=== PATIENT | female | born 1965 | race Caucasian/White ===

== ENCOUNTER 2020-04-23 12:45 | Outpatient (CLI) | payer OTHER, SELFPAY ==
[2020-04-23 13:55] LABS: Hematocrit 42.5 % (37.0-47.0); Hemoglobin 13.5 g/dL (12.0-15.0); Mean Corpuscular HGB Conc 31.8 g/dl (32-36); Mean Corpuscular Hemoglobin 26.3 pg (26-34); Mean Corpuscular Volume 82.7 fl (80-100); Mean Platelet Volume 10.3 fl (7.4-10.4); Platelet Count Result 284 k/mm3 (150-375); Red Blood Count 5.14 M/mm3 (4.2-5.4); Red Cell Distribution Width 14.6 % (11.5-14.5); White Blood Count 10.4 K/mm3 (4.5-10.0)
[2020-04-23 14:04] LABS: Hemoglobin A1C 7.1 % (<5.7)
[2020-04-23 14:07] LABS: Albumin Level 4.6 g/dL (3.5-5.1); Anion Gap 11 mmol/L (8-16); Blood Urea Nitrogen 35 mg/dL (7-17); Calcium 9.5 mg/dL (8.4-10.2); Carbon Dioxide 25 mmol/L (22-30); Chloride 100 mmol/L (98-107); Estimated Glomerular Filt Rate 28; Glucose 176 mg/dL (65-105); Potassium 4.5 mmol/L (3.4-5.0); Sodium 136 mmol/L (137-145)
[2020-04-23 14:07] LABS: Creatinine Urine 30.6 mg/dL; Total Protein Urine Random 14 mg/dL
[2020-04-23 14:19] LABS: Parathyroid Intact 78.3 pg/mL (7.5-53.5)
[2020-04-23 14:21] LABS: Iron 53 ug/dL (37-170)
[2020-04-23 14:31] LABS: Percent Iron Saturation 16 % (20-50)
[2020-04-23 14:57] LABS: Total Volume 24 Hour Urine 2600 ml
[2020-04-23 15:36] LABS: Creatinine 24 Hour Urine 0.9 gm/24 (0.8-1.8)
[2020-04-28 14:40] LABS: Collection Time Urine 24 HOURS
[2020-04-28 14:43] LABS: Creatinine Clearance Urine 26.3 ml/min (75-125); Patient Weight 202 Lbs; Serum Creat 1.9; Total Volume 24 Hour Urine 2600 ml
== END 2020-04-23 12:46 | disposition home or self-care (01) ==
LOC: ANHLAB 12:47
PROVIDERS: Visit Provider Internal Medicine Nephrology
DX: I12.9 Hypertensive chronic kidney disease with stage 1 through stage 4 chronic kidney disease, or unspecified chronic kidney disease (principal); N18.3 Chronic kidney disease, stage 3 (moderate); E11.21 Type 2 diabetes mellitus with diabetic nephropathy
CPT/HCPCS: 36415; 80069; 81050; 82570; 82575; 82728; 83036; 83540; 83550; 83970; 84156; 85027

== ENCOUNTER 2025-02-05 08:41 | Outpatient (CLI) | payer OTHER, SELFPAY ==
--- NOTE | ~2025-02-05 | XR_ITS ---
3 VIEWS LUMBAR SPINE Ordering provider: Meliza Cedillo APRN History: . M25.552 - Pain in left hip . Comparison: None. 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 No visible fracture or subluxation. Degenerati ve changes of the spine with marginal osteophytes. DISK SPACES: Normal. SOFT TISSUES: Atherosclerotic changes of the aorta. IMPRESSION: No acute osseous abnormality lumbar spine. 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 Reviewed, dictated and finalized at location A.
--- NOTE | ~2025-02-05 | XR_ITS ---
XR hip LT min 2V Ordering provider: Meliza Cedillo APRN History: . M25.552 - Pain in left hip . Comparison: None. FINDINGS: BONES: No acute fracture or dislocation. HIP JOINT SPACES: Mild narrowing of the left hip joint. PUBIC SYMPHYSIS: Normal. SOFT TISSUES: Normal. IMPRESSION: No acute osseous abnormality pelvis and left hip. Mild left hip osteoarthritic changes. Reviewed, dictated and finalized at location A.
--- OUTSIDE RECORDS SUMMARY | 2025-02-05 09:08 | XMS_ITS | Clinical Summary ---
Author Organization [facility] Facility Address [address] [place] [id number] Care Team Providers Care Cardiac Catheterization Technician Name Role Phone Unavailable Primary Care Provider Unavailabl e Allergies No known active allergies Medications * This document contains information received from the source organization and may not represent a complete record from that organization. aspirin 81 MG tablet Take 1 tablet by mouth 1 (one) time each day Active rosuvastatin (CRESTOR) 40 MG tablet Take 1 tablet by mouth at bed time Active glipiZIDE (GLUCOTROL) 5 MG tablet Take 0.5 tablets by mouth 1 (one) time each day Active insulin glargine (LANTUS SOLOSTAR) 100 UNIT/ML injection Inject 80 Units under the skin at bed time Active lisinopril-hydr oCHLOROthiazide (PRINZIDE,ZESTO RETIC) 20-12.5 MG per tablet Take 1 tablet by mouth 1 (one) time each day Active guaiFENesin (MUCINEX) 600 MG 12 hr tablet Take 1 tablet by mouth 2 (two) times a day Active olopatadine (PATADAY) 0.2 % ophthalmic solution Administer into both eyes 1 (one) time each day Active omeprazole OTC (PRILOSEC OTC) 20 MG EC tablet Take 1 tablet by mouth 1 (one) time each day Active Dulaglutide (TRULICITY) 0.75 MG/0.5ML solution pen-injector Inject 1.5 mg under the skin 1 (one) time per week Active acetaminophen (TYLENOL) 325 MG tablet Take 1 tablet by mouth 1 (one) time each day Active cetirizine (ZyrTEC ALLERGY) 10 MG tablet Take 1 tablet by mouth 1 (one) time each day Active Active Problems Problem Noted Date Diagnosed Date Anemia 06/23/2019 Chronic kidney disease stage 3 06/23/2019 Essential hypertension 06/23/2019 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 08/23/2018 Family History Medical History Relation Comments Dementia Father 2 Hypertension Father 2 Diabetes Mother 2 Hypertension Mother 2 Diabetes Sibling Relation Status Comments Father 1 Father 2 Mother 1 Alive Mother 2 Sibling Social History Tobacco Use Types Packs/Day Years Used Date Smoking Tobacco: Never Smokeless Tobacco: Never Alcohol Use Standard Drinks/Week Comments Yes 0 (1 standard drink = 0.6 oz pure alcohol) Alcoholic Drinks/day: Occasional social drink AUDIT-C Answer Date Recorded Frequency of Alcohol Consumption Monthly or less 07/22/2019 Average Number of Drinks Not on file 019 Frequency of Binge Drinking Not on file 09/2018 Comments Unknown Sex and Gender Information Value Date Recorded Sex Assigned at Not on file Legal Sex Female 6:10 PM EDT Gender Identity Not on file Sexual Orientation Not on file Last Filed Vital Signs Vital Sign Reading Time Taken Comments Blood Pressure 125/69 07/22/2019 11:31 AM 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 Pulse 99 07/22/2019 11:31 AM 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 Temperature - - Respiratory Rate 18 03/13/2019 11:00 AM CDT Oxygen Saturation 99% 07/22/2019 11:31 AM 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 Inhaled Oxygen Concentration - - Weight 91.6 kg (202 lb) 07/22/2019 11:31 AM 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 Height 157.5 cm (5' 2) 07/22/2019 11:31 AM 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 Body Mass Index 36.95 07/22/2019 11:31 AM 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 Plan of Treatment Health Maintenance Due Date Last Done Comments Breast Cancer Screening 1965 Hepatitis B Vaccine (1 of 3 - 19+ 3-dose series) 1985 Pneumococcal Vaccine: 50+ Ye ars (1 of 2 - PCV) 1985 Colorectal Cancer Screening: Annual FOBT 11/07/2015 Colorectal Cancer Screening: Colonoscopy 11/07/2015 Colorectal Cancer Screening: Sigmoidoscopy 11/07/2015 Diabetes: Ophthalmology Exam 06/23/2019 Diabetes: Pedal Pulse Checked 06/23/2019 Diabetes: Sensory Foot Exam 06/23/2019 Diabetes: Visual Foot Exam 06/23/2019 Diabetes: Hemoglobin A1C 07/23/2020 04/23/2020, 1103/2019 Influenza Vaccine (Season Ended) 2025 Procedures Procedure Name Priority Date/Time Associated Diagnosis Comments HEMOGLOBIN A1C Routine 04/23/2020 Type 2 diabetes mellitus with diabetic nephropathy (HCC) from Last 3 Months or Most Recently Relevant to Health Maintenance Results * Hemoglobin A1c (04/23/2020) Hemoglobin A1C 7.1 >=5.7 PRINT /EXTERNAL (NON-INTERFACE D LABS) Blood specimen (specimen) Venous blood / Unknown 04/23/2020 Jose Correia MD LAB BLOOD ORDERABLES Final Res ult PRINT/EXTERNAL (NON-INTERFACED LABS) from Last 3 Months or Most Recently Relevant to Health Maintenance Insurance
[2025-02-05 09:33] LABS: Hematocrit 43.1 % (37.0-47.0); Hemoglobin 13.6 g/dL (12.0-15.0); Mean Corpuscular HGB Conc 31.6 g/dl (32-36); Mean Corpuscular Volume 85.7 fl (80-100); Mean Platelet Volume 10.3 fl (7.4-10.4); Platelet Count Result 220 k/mm3 (150-375); Red Blood Count 5.03 M/mm3 (4.2-5.4); Red Cell Distribution Width 14.1 % (11.5-14.5); White Blood Count 6.6 K/mm3 (4.5-10.0)
[2025-02-05 10:17] LABS: Creatinine Urine 71.3 mg/dL
[2025-02-05 10:22] LABS: Alanine Aminotransferase 21 U/L (6-35); Albumin Level 4.1 g/dL (3.5-5.1); Alkaline Phosphatase 76 U/L (38-126); Anion Gap 10 mmol/L (4-12); Aspartate Amino Transferase 30 U/L (14-36); Bilirubin,Total 0.3 mg/dL (0.2-1.3); Blood Urea Nitrogen 32 mg/dL (7-17); Carbon Dioxide 24 mmol/L (22-30); Chloride 106 mmol/L (98-107); Cholesterol 121 mg/dL (0-200); Estimated Glomerular Filt Rate 49; Glucose 122 mg/dL (65-110); HDL Direct 41 mg/dL; Magnesium 2.1 mg/dL (1.6-2.3); Potassium 4.7 mmol/L (3.4-5.0); Sodium 140 mmol/L (137-145); Total Protein 7.3 g/dL (6.3-8.2); Triglycerides 124 mg/dL (<150)
[2025-02-05 10:23] LABS: MALB Creatinine Ratio 44.9 mg/g (0-30)
[2025-02-05 10:33] LABS: LDL Cholesterol Direct 51 mg/dL
[2025-02-05 11:33] LABS: Folic Acid 4.1 ng/mL (2.76->20)
[2025-02-05 14:58] LABS: Vitamin D 25 Hydroxy 39.5 ng/mL
[2025-02-07 23:44] LABS: Amphetamines NEGATIVE ng/mL (<500); Barbiturates NEGATIVE ng/mL (<300); Benzodiazepines NEGATIVE ng/mL (<100); Cocaine Metabolite NEGATIVE ng/mL (<150); Marijuana Metabolite POSITIVE ng/mL (<20); Methadone Metabolite NEGATIVE ng/mL (<100); Opiates NEGATIVE ng/mL (<100); Oxidant NEGATIVE mcg/mL (<200); PCP NEGATIVE ng/mL (<25); pH 5.4 (4.5-9.0)
== END 2025-02-05 08:42 | disposition home or self-care (01) ==
PROVIDERS: PCP Nurse Practitioner Family; Visit Provider Nurse Practitioner Family
DX: M47.896 Other spondylosis, lumbar region (principal); M16.12 Unilateral primary osteoarthritis, left hip; E11.9 Type 2 diabetes mellitus without complications; Z79.899 Other long term (current) drug therapy; E78.5 Hyperlipidemia, unspecified; J30.2 Other seasonal allergic rhinitis; N18.9 Chronic kidney disease, unspecified; M79.7 Fibromyalgia; Z76.89 Persons encountering health services in other specified circumstances; Z00.00 Encounter for general adult medical examination without abnormal findings; Z78.0 Asymptomatic menopausal state; E55.9 Vitamin D deficiency, unspecified; E53.8 Deficiency of other specified B group vitamins; R79.0 Abnormal level of blood mineral
CPT/HCPCS: 36415; 72100; 73502; 80053; 80061; 80307; 82043; 82306; 82607; 82746; 83036; 83735; 85027

== ENCOUNTER 2025-02-16 09:55 | Outpatient (CLI) | payer OTHER, SELFPAY ==
--- NOTE | ~2025-02-16 | CT_ITS ---
CT of the Abdomen and Pelvis: Indication: Renal cyst Technique: 2.5 mm axial scans were obtained through the abdomen and pelvis prior to and following in travenous administration of 100 cc of Omnipaque 350. Dose reduction technique was used on this scan b y utilizing automated exposure control and iterative reconstruction technique. The dose-length produc t (DLP) was 1466.52 mGy-cm. Findings: Scans through the lung bases are unremarkable. The liver, spleen, pancreas, and adrenal glands. Bilateral renal cysts are present. Small calcified g allstones are present. There are atherosclerotic calcifications of the aorta. No lymphadenopathy. No bowel obstruction or bowel wall thickening. There is no evidence to suggest acute appendicitis. Images through the pelvis were performed. Urinary bladder unremarkable. Probable uterine fibroid. No other adnexal mass seen. No ascites. Impression: Bilateral renal cysts. Cholelithiasis. Probable uterine fibroid. Reviewed, dictated and finalized at [facility]. Impression: Bilateral renal cysts. Cholelithiasis. Probable uterine fibroid.
== END 2025-02-16 09:56 | disposition home or self-care (01) ==
PROVIDERS: PCP Nurse Practitioner Family; Visit Provider Nurse Practitioner Family
DX: N28.1 Cyst of kidney, acquired (principal); K80.20 Calculus of gallbladder without cholecystitis without obstruction
CPT/HCPCS: 74178; Q9967

== ENCOUNTER 2025-03-24 10:38 | Outpatient (CLI) | payer OTHER, SELFPAY ==
--- NOTE | ~2025-03-24 | XR_ITS ---
Left Hand Technique: PA, oblique, and lateral views were obtained. Clinical History: Pain Findings: No acute fracture or dislocation is seen. Osseous alignment is anatomic. Joint spaces are p reserved. Soft tissues are unremarkable. Impression: Unremarkable left hand. Reviewed, dictated and finalized at location M. Impression: Unremarkable left hand.
--- OUTSIDE RECORDS SUMMARY | 2025-03-24 11:06 | XMS_ITS | Clinical Summary ---
Author Organization [facility] Facility Address [address] [address] Care Team Providers Care Guide Travel Name Role Phone Unavailable Primary Care Provider [...] Comments Blood Pressure 125/69 07/22/2019 11:31 AM [employer] Pulse 99 07/22/2019 11:31 AM [employer] Temperature - - Respiratory Rate 18 03/13/2019 11:00 AM CDT Oxygen Saturation 99% 07/22/2019 11:31 AM [employer]DER Inhaled Oxygen Concentration - - Weight 91.6 kg (202 lb) 07/22/2019 11:31 AM [employer] BUILDER Height 157.5 cm (5' 2) 07/22/2019 11:31 AM [employer] BUILDER Body Mass Index 36.95 07/22/2019 11:31 AM [employer] BUILDER Plan of Treatment Health Maintenance Due Date [...] Hemoglobin A1C 07/23/2020 04/23/2020, 1103/2019 Influenza Vaccine (#1) 2025 Procedures Procedure Name Priority Date/Time Associated [...]
--- OUTSIDE RECORDS SUMMARY | 2025-03-24 11:07 | XMS_ITS | Continuity of Care Document ---
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 Ambulat ory Pharmac y olopatadine 0.1% eye drops [5mL] = 1 drop(s), Eye-Both , BID, # 5 mL, 1 total refill(s ), Soft Stop Both eyes Discont inued 02/17/2025 5 2024 5.0 Ambulat ory Pharmac y olopatadine 0.1% eye drops [5mL] See Instruct ions, # 5 mL, 1 total refill(s ), Soft Stop Ordered 5 2024 5.0 Ambulat ory Pharmac y olopatadine 0.1% ophthalmic solution 20 unknown unit, 0 Refill(s ), 0 total refill(s ), Soft Stop Discont inued 09/21/20232023 0055C-3 [facility] omeprazole 20 mg oral delayed release capsule 1 cap(s), Oral, Daily, 30 to 60 minutes before a meal, # 90 cap(s), 3 total refill(s ), [facility], Pharmacy : [facility] Oral (given by mouth) Discont inued 03/10/2025 5 2024 90.0 0055C-3 [facility] omeprazole 20 mg oral delayed release capsule 1 cap(s), Oral, Daily, 30 to 60 minutes before a meal, # 90 cap(s), 1 total refill(s ), [facility], Pharmacy : [facility] Oral (given by mouth) Discont inued 06/08/2023 3 2022 90.0 0055C-3 [facility] omeprazole 20 mg oral delayed release capsule 1 cap(s), Oral, Daily, 30 to 60 minutes before a meal, # 90 cap(s), 1 total refill(s ), [facility], Pharmacy : [facility] Oral (given by mouth) Discont inued 11/14/2023 4 2023 90.0 0055C-3 [facility] omeprazole 20 mg oral delayed release capsule 1 cap(s), Oral, Daily, 30 to 60 minutes before a meal, # 90 cap(s), 1 total refill(s ), [facility], Pharmacy : [facility] Oral (given by mouth) Discont inued 09/12/20242024 90.0 0055C-3 [facility] omeprazole 20 mg oral delayed release capsule 1 cap(s), Oral, Daily, 30 to 60 minutes before a meal, # 90 cap(s), 1 total refill(s ), [facility], Pharmacy : [facility] Oral (given by mouth) Discont inued 05/14/2024 4 2023 90.0 0055C-[address] [place], [place] [address]NAYELI Arvizu omeprazole DR 20 mg capsule = 1 cap(s), Oral, Daily, # 90 EA, 1 total refill(s ), Soft Stop Oral (given by mouth) Ordered 5 2024 90.0 Ambulat ory Pharmac y Patanol 0.1% ophthalmic solution 1 drop(s), Eye-Both , BID, # 20 mL, 3 total refill(s ), Maintena nce, Pharmacy : [facility] Both eyes Discont inued 02/15/2024 4 2023 20.0 0055C-3 75[facility] YOU Arv[facility] Patanol 0.1% ophthalmic solution 1 drop(s), Eye-Both , BID, # 20 mL, 3 total refill(s ), Maintena nce, Pharmacy : [facility] Both eyes Discont inued 02/11/2025 5 2024 20.0 0055C-3 75[facility] YOU [facility] Perdiem Fiber Caplet 1 cap, Oral, Daily, 0 total refill(s ), Maintena nce Oral (given by mouth) Ordered 2022 0055C-3 [facility] YOU Arvizu pregabalin 75 mg capsule = 1 cap(s), Oral, BID, # 60 EA, 0 total refill(s ), Soft Stop Oral (given by mouth) Ordered 5 2024 60.0 Ambulat ory Pharmac y pregabalin 75 mg capsule See Instruct ions, # 60 EA, 0 total refill(s ), Soft Stop Ordered 5 2024 60.0 Ambulat ory Pharmac y pregabalin 75 mg oral capsule 1 cap(s), Oral, BID, # 180 cap(s), 2 total refill(s ), Maintena nce, Pharmacy : [facility] Oral (given by mouth) Discont inued 02/11/2025 5 2024 180.0 0055C-3 [facility] rosuvastati n 40 mg oral tablet 90 tab(s), 0 Refill(s ), 0 total refill(s ), Soft Stop Discont inued 09/21/20232023 0055C-3 [facility] rosuvastati n 40 mg tablet = 1 tab(s), Oral, Daily, # 90 EA, 1 total refill(s ), Soft Stop Oral (given by mouth) Ordered 5 2024 90.0 Ambulat ory Pharmac y semaglutide (2mg dose) 8mg/3mL inj-pen [3 mL] See Instruct ions, # 3 mL, 1 total refill(s ), Soft Stop Notes: refriger ate Discont inued 03/17/2025 5 2024 3.0 Ambulat ory Pharmac y semaglutide (2mg dose) 8mg/3mL inj-pen [3 mL] See Instruct ions, SubCutan eous, # 3 mL, 1 total refill(s ), Soft Stop Notes: refriger ate SubCut aneous (under the skin) Discont inued 02/17/2025 5 2024 3.0 Ambulat ory Pharmac y semaglutide (2mg dose) 8mg/3mL inj-pen [3 mL] 2 mg, SubCutan eous, every week, # 3 mL, 3 total refill(s ), Soft Stop Notes: refriger ate SubCut aneous (under the skin) Ordered 5 2024 3.0 Ambulat ory Pharmac y semaglutide (Ozempic) 4 mg/3 mL (1 mg dose) inj-pen 1 mg, SubCutan eous, every week, rotate injectio n sites, # 3 mL, 5 total refill(s ), Maintena nce, There are 4 pen needles in the box, Pharmacy : [facility] SubCut aneous (under the skin) Discont inued 02/11/2025 5 2024 3.0 0055C-[address] [place], [place] [address]John Paul Arvizu semaglutide (Ozempic) 4 mg/3 mL (1 mg dose) inj-pen 1 mg, SubCutan eous, every week, rotate injectio n sites, # 3 mL, 5 total refill(s ), Hard Stop, There are 4 pen needles in the box, Pharmacy : [facility] SubCut aneous (under the skin) Complet ed 08/30/2024 4 2024 3.0 0055C-3 [facility] Singulair 10 mg oral tablet 1 tab(s), Oral, every day at bedtime, # 90 tab(s), 3 total refill(s ), Maintena [facility], Pharmacy : [facility] Oral (given by mouth) Discont inued 03/10/2025 5 2024 90.0 0055C-3 [facility] Singulair 10 mg oral tablet 1 tab(s), Oral, every day at bedtime, # 90 tab(s), 1 total refill(s ), Maintena [facility], Pharmacy : [facility] Oral (given by mouth) Discont inued 06/08/2023 3 2022 90.0 0055C-3 [facility] Singulair 10 mg oral tablet 1 tab(s), Oral, every day at bedtime, # 90 tab(s), 1 total refill(s ), Maintena fle, Pharmacy : [facility] Oral (given by mouth) Discont inued 11/14/2023 4 2023 90.0 0055C-3 [facility] Singulair 10 mg oral tablet 1 tab(s), Oral, every day at bedtime, # 90 tab(s), 1 total refill(s ), Maintena fle, Pharmacy : [facility] Oral (given by mouth) Discont inued 09/12/20242024 90.0 0055C-3 [facility] Singulair 10 mg oral tablet 1 tab(s), Oral, every day at bedtime, # 90 tab(s), 1 total refill(s ), Maintena fle, Pharmacy : [facility] Oral (given by mouth) Discont inued 05/14/2024 4 09/24/ 2024 90.0 0055C-3 [facility] Trulicity Pen 4.5 mg/0.5 mL subcutaneou s solution 4.5 mg, SubCutan eous, every week, # 6 mL, 1 total refill(s ), [facility], Pharmacy : [facility] SubCut aneous (under the skin) Discont inued 08/02/2023 3 2022 6.0 0055C-3 75th [facility] Trulicity Pen 4.5 mg/0.5 mL subcutaneou s solution 4.5 mg, SubCutan eous, every week, # 6 mL, 1 total refill(s ), [facility], Pharmacy : [facility] SubCut aneous (under the skin) Discont inued 11/14/2023 4 2023 6.0 0055C-3 75th [facility] Trulicity Pen 4.5 mg/0.5 mL subcutaneou s solution 4.5 mg, SubCutan eous, every week, # 6 mL, 1 total refill(s ), [facility], Pharmacy : [facility] SubCut aneous (under the skin) Discont inued 02/15/20242023 6.0 0055C-3 [facility] Allergies, Adverse Reactions, Alerts Combined list of allergies from Department of Defense and Veterans Affairs facilities. It does not include entries that were removed or entered in error. Substance Category Reaction Severity Reaction type Status Date Reported Comments Source No Known Allergies Drug allergy (disorder) active 03/14/2008 [facility] [place] [place] Immun[place] Combined list of available immunizations from the Department of Defense and Veterans Affairs facilities. Immunization Series Date Given Administered By Site Reaction Lot Number CVX Code Drug Testing Coordinator Status Comments Source Influenza, inj, MDCK, quadrivalent- pf 2022 LISSETH DUEÑAS 171 complet ed Result Comment: Route: Unknown Manufactu rer: OTH (SEQ) 0055C-3 [facility] tetanus-dipht h toxoids (Td) adult/adol 2022 zzLef t Arm [id number] 09 sanofi pasteur complet ed tetanus-d iphth toxoids (Td) adult/ado l 09/13/22 Given Ambulat ory Pharmac y influenza, injectable, quadrivalent- pf 2022 zzLef t Arm [id number] 150 GlaxoSmithKli ne complet ed influenza , injectabl e, quadrival ent-pf 09/13/22 Given Ambulat ory Pharmac y influenza, injectable, quadrivalent- pf 2022 [id number] 150 GlaxoSmithKli ne complet ed influenza , injectabl e, quadrival ent-pf 09/13/22 Given Ambulat ory Pharmac y tetanus-dipht h toxoids (Td) adult/adol 2022 [id number] 09 sanofi pasteur complet ed tetanus-d iphth toxoids (Td) adult/ado l 09/13/22 Given Ambulat ory Pharmac y tetanus and diphtheria toxoids, adsorbed, preservative free, for adult use (2 Lf of tetanus toxoid and 2 Lf of diphtheria toxoid) 2022 Unknown, Provider [id number] 09 Sanofi Pasteur ([facility]) complet ed tetanus and diphtheri a toxoids, adsorbed, preservat truman free, for adult use (2 Lf of tetanus toxoid and 2 Lf of diphtheri a toxoid) DoD Influenza, injectable, quadrivalent, preservative free 2022 Unknown, Provider [id number] 150 [facility] ([facility]) complet ed Influenza , injectabl e, quadrival ent, preservat truman free DoD Influenza, inj, MDCK, quadrivalent- pf 2020 171 [employer] complet ed Influenza , inj, MDCK, quadrival ent-pf 06/10/21 Given Ambulat ory Pharmac y Influenza, injectable, MDCK, preservative free, quadrivalent 2020 ALUL, () Not Given Influenza , injectabl e, MDCK, preservat truman free, quadrival ent DoD zoster vaccine, inactivated 2020 187 GlaxoSmithKli ne complet ed zoster vaccine, inactivat ed 01/07/21 Given Ambulat ory Pharmac y zoster recombinant 2020 ALUL, () Not Given zoster recombina nt DoD zoster vaccine, inactivated 2020 187 complet ed zoster vaccine, inactivat ed 10/29/20 Given Ambulat ory Pharmac y zoster recombinant 2020 ALUL, () Not Given zoster recombina nt DoD influenza virus vaccine, inactivated 2019 88 [employer] complet ed influenza virus vaccine, inactivat ed 06/04/20 Given Ambulat ory Pharmac y Influenza, injectable, MDCK, preservative free, quadrivalent 2019 ALUL, () Not Given Influenza , injectabl e, MDCK, preservat truman free, quadrival ent DoD Influenza, inj, MDCK, quadrivalent- pf 2019 MS.DANIELLEMA RODGERS 171 complet ed Result Comment: Unit: Unknown Manufactu rer: () 0055C-3 [facility] Influenza, inj, MDCK, quadrivalent- pf 2018 171 [employer] complet ed Influenza , inj, MDCK, quadrival ent-pf 08/15/19 Given Ambulat ory Pharmac y Influenza, injectable, MDCK, preservative free, quadrivalent 2018 ALUL, () Not Given Influenza , injectabl e, MDCK, preservat truman free, quadrival ent DoD measles/mumps /rubella virus vaccine 2018 zzRig ht Arm [id number] 03 Merck & Company Inc complet ed measles/m umps/rube lla virus vaccine 01/09/19 Given Ambulat ory Pharmac y measles/mumps /rubella virus vaccine 2018 [id number] 03 [employer]ck [employer] Inc complet ed measles/m umps/rube lla virus vaccine 01/09/19 Given Ambulat ory Pharmac y measles, mumps and rubella virus vaccine 1 2018 Unknown, Provider [id number] 03 Merck (MSD) complet ed measles, mumps and rubella virus vaccine DoD influenza, injectable, quadrivalent- pf 2017 zzRig ht Arm [id number] 150 GlaxoSmithKli ne complet ed influenza , injectabl e, quadrival ent-pf 07/04/18 Given Ambulat ory Pharmac y influenza, injectable, quadrivalent- pf 2017 [id number] 150 GlaxoSmithKli ne complet ed influenza , injectabl e, quadrival ent-pf 07/04/18 Given Ambulat ory Pharmac y Influenza, injectable, quadrivalent, preservative free 1 2017 Unknown, Provider [id number] 150 [facility] ([facility]) complet ed Influenza , injectabl e, quadrival ent, preservat truman free DoD influenza, injectable, quadrivalent- pf [email or web address] complet ed influenza , injectabl e, quadrival ent-pf 06/13/17 Given Ambulat ory Pharmac y Influenza, injectable, quadrivalent, preservative free 1 2016 Unknown, Provider [id number] 150 [facility] ([facility]) complet ed Influenza , injectabl e, quadrival ent, preservat truman free DoD influenza, seasonal, injectable-pf 2015 zzRig Arm [id number] 140 [employer] complet ed influenza , seasonal, injectabl e-pf 06/09/16 Given Ambulat ory Pharmac y influenza, seasonal, injectable-pf 2015 [id number] 140 [employer] complet ed influenza , seasonal, injectabl e-pf 06/09/16 Given Ambulat ory Pharmac y Influenza, seasonal, injectable, preservative free 1 2015 Unknown, Provider [id number] 140 [employer] (SEQ) complet ed Influenza , seasonal, injectabl e, preservat truman free DoD influenza, seasonal, injectable-pf 2014 zzRig Arm [id number] 140 [employer] complet ed influenza , seasonal, injectabl e-pf 06/08/15 Given Ambulat ory Pharmac y pneumococcal polysaccharid e, 23 valent 2014 zzRig Arm [id number] 33 Merck & Company Inc complet ed pneumococ becca polysacch aride, 23 valent 06/08/15 Given Ambulat ory Pharmac y influenza, seasonal, injectable-pf 2014 [id number] 140 [employer] complet ed influenza , seasonal, injectabl e-pf 06/08/15 Given Ambulat ory Pharmac y pneumococcal polysaccharid e, 23 valent 2014 [id number] 33 Merck & Company Inc complet ed pneumococ becca polysacch aride, 23 valent 06/08/15 Given Ambulat ory Pharmac y pneumococcal polysaccharid e vaccine, 23 valent 1 2014 Unknown, Provider [id number] 33 Merck (MSD) complet ed pneumococ becca polysacch aride vaccine, 23 valent DoD Influenza, seasonal, injectable, preservative free 1 2014 Unknown, Provider [id number] 140 [employer] (CS[facility]) complet ed Influenza , seasonal, injectabl e, preservat truman free DoD pneumococcal polysaccharid e, 23 valent 2013 [place] [id number] 33 Merck & Company Inc complet ed pneumococ becca polysacch aride, 23 valent 06/16/14 Given Ambulat ory Pharmac y influenza, seasonal, injectable-pf 2013 zzL t Arm [id number] 140 Novartis Pharmaceutica ls complet ed influenza , seasonal, injectabl e-pf 06/16/14 Given Ambulat ory Pharmac y pneumococcal polysaccharid e, 23 valent 2013 [id number] 33 Merck & Company Inc complet ed pneumococ becca polysacch aride, 23 valent 06/16/14 Given Ambulat ory Pharmac y pneumococcal polysaccharid e vaccine, 23 valent 1 2013 Unknown, Provider [id number] 33 Merck (MSD) complet ed pneumococ becca polysacch aride vaccine, 23 valent DoD Influenza, seasonal, injectable, preservative free 1 2013 Unknown, Provider [id number] 140 [employer]is [employer] Stephanie. (NOV) complet ed Influenza , seasonal, injectabl e, preservat truman free DoD typhoid Vi capsular polysaccharid e vac 2012 [facility] Arm [id number] 101 sanofi pasteur complet ed typhoid Vi capsular polysacch aride vac 07/24/13 Given Ambulat ory Pharmac y typhoid Vi capsular polysaccharid e vac 2012 [id number] 101 sanofi pasteur complet ed typhoid Vi capsular polysacch aride vac 07/24/13 Given Ambulat ory Pharmac y typhoid Vi capsular polysaccharid e vaccine 2 2012 Unknown, Provider [id number] 101 Sanofi Pasteur ([facility]) complet ed typhoid Vi capsular polysacch aride vaccine DoD influenza, seasonal, injectable-pf 2012 zzLef t Arm [id number] 140 sanofi pasteur complet ed influenza , seasonal, injectabl e-pf 06/07/13 Given Ambulat ory Pharmac y influenza, seasonal, injectable-pf 2012 [id number] 140 sanofi pasteur complet ed influenza , seasonal, injectabl e-pf 06/07/13 Given Ambulat ory Pharmac y Influenza, seasonal, injectable, preservative free 8 2012 Unknown, Provider [id number] 140 Sanofi Pasteur ([facility]) complet ed Influenza , seasonal, injectabl e, preservat truman free DoD influenza, seasonal, injectable-pf 2011 [facility] Arm [id number] 140 sanofi pasteur complet ed influenza , seasonal, injectabl e-pf 06/18/12 Given Ambulat ory Pharmac y influenza, seasonal, injectable-pf 2011 [id number] 140 sanofi pasteur complet ed influenza , seasonal, injectabl e-pf 06/18/12 Given Ambulat ory Pharmac y Influenza, seasonal, injectable, preservative free 7 2011 Unknown, Provider [id number] 140 Sanofi Pasteur ([facility]) complet ed Influenza , seasonal, injectabl e, preservat truman free DoD meningococcal A,C,Y,W-135 (MCV4P) 2011 [facility] [id number] 114 sanofi pasteur complet ed meningoco ccal A,C,Y,W-1 35 (MCV4P) 04/09/12 Given Ambulat ory Pharmac y tetanus, diphtheria, acellular pertu is 2011 [facility] Arm [id number] 115 GlaxoSmithKli ne complet ed tetanus, diphtheri a, acellular pertussis 04/09/12 Given Ambulat ory Pharmac y tetanus, diphtheria, acellular pertu is 2011 [id number] 115 GlaxoSmithKli ne complet ed tetanus, diphtheri a, acellular pertussis 04/09/12 Given Ambulat ory Pharmac y meningococcal A,C,Y,W-135 (MCV4P) 2011 [id number] 114 sanofi pasteur complet ed meningoco ccal A,C,Y,W-1 35 (MCV4P) 04/09/12 Given Ambulat ory Pharmac y meningococcal polysaccharid e (groups A, C, Y and W-135) diphtheria toxoid conjugate vaccine (MCV4P) 1 2011 Unknown, Provider [id number] 114 Sanofi Pasteur ([facility]) complet ed meningoco ccal polysacch aride (groups A, C, Y and W-135) diphtheri a toxoid conjugate vaccine (MCV4P) [facility] tetanus toxoid, reduced diphtheria toxoid, and acellular pertu is vaccine, adsorbed 1 2011 Unknown, Provider [id number] [address] [place] [address] ([facility]) complet ed tetanus toxoid, reduced diphtheri a toxoid, and acellular pertussis vaccine, adsorbed DoD influenza, seasonal, injectable-pf 2010 zzLef t Arm [id number] 140 sanofi pasteur complet ed influenza , seasonal, injectabl e-pf 06/06/11 Given Ambulat ory Pharmac y influenza, seasonal, injectable-pf 2010 [id number] 140 sanofi pasteur complet ed influenza , seasonal, injectabl e-pf 06/06/11 Given Ambulat ory Pharmac y Influenza, seasonal, injectable, preservative free 1 2010 Unknown, Provider [id number] 140 Sanofi Pasteur ([facility]) complet ed Influenza , seasonal, injectabl e, preservat truman free DoD influenza virus vaccine,split [facility] [id number] 15 [employer] complet ed influenza virus vaccine,s plit 06/22/10 Given Ambulat ory Pharmac y influenza virus vaccine,split 2009 [id number] 15 [employer] complet ed influenza virus vaccine,s plit 06/22/10 Given Ambulat ory Pharmac y influenza virus vaccine, split virus (incl. purified surface antigen)-reti red CODE 1 2009 Unknown, Provider [id number] 15 [employer] ([facility]) complet ed influenza virus vaccine, split virus (incl. purified surface antigen)- retired CODE DoD typhoid Vi capsular polysaccharid e vac 2009 zzRig ht Arm [id number] 101 sanofi pasteur complet ed typhoid Vi capsular polysacch aride vac 12/03/09 Given Ambulat ory Pharmac y hepatitis A adult vaccine 2009 zzLef t Arm [id number] 52 GlaxoSmithKli ne complet ed hepatitis A adult vaccine 12/03/09 Given Ambulat ory Pharmac y hepatitis A adult vaccine 2009 [id number] 52 GlaxoSmithKli ne complet ed hepatitis A adult vaccine 12/03/09 Given Ambulat ory Pharmac y typhoid Vi capsular polysaccharid e vac 2009 [id number] 101 sanofi pasteur complet ed typhoid Vi capsular polysacch aride vac 12/03/09 Given Ambulat ory Pharmac y hepatitis A vaccine, adult dosage 1 2009 Unknown, Provider [id number] 52 [facility] ([facility]) complet ed hepatitis A vaccine, adult dosage DoD typhoid Vi capsular polysaccharid e vaccine 1 2009 Unknown, Provider [id number] 101 Sanofi Pasteur ([facility]) complet ed typhoid Vi capsular polysacch aride vaccine DoD influenza virus vaccine,split 2008 zzLef t Arm [id number] 15 sanofi pasteur complet ed influenza virus vaccine,s plit 05/18/09 Given Ambulat ory Pharmac y influenza virus vaccine,split 2008 [id number] 15 sanofi pasteur complet ed influenza virus vaccine,s plit 05/18/09 Given Ambulat ory Pharmac y influenza virus vaccine, split virus (incl. purified surface antigen)-reti red CODE 1 2008 Unknown, Provider [id number] 15 Sanofi Pasteur ([facility]) complet ed influenza virus vaccine, split virus (incl. purified surface antigen)- retired CODE DoD influenza virus vaccine,split 2005 zzLef t Arm [id number] 15 GlaxoSmithKli ne complet ed influenza virus vaccine,s plit 07/26/06 Given Ambulat ory Pharmac y influenza virus vaccine,split 2005 [id number] 15 GlaxoSmithKli ne complet ed influenza virus vaccine,s plit 07/26/06 Given Ambulat ory Pharmac y influenza virus vaccine, split virus (incl. purified surface antigen)-reti red CODE 1 2005 Unknown, Provider [id number] 15 [facility] ([facility]) complet ed influenza virus vaccine, split virus (incl. purified surface antigen)- retired CODE DoD tetanus-dipht h toxoids (Td) adult/adol 2004 zzLef t Arm [id number] 09 sanofi pasteur complet ed tetanus-d iphth toxoids (Td) adult/ado l 10/13/04 Given Ambulat ory Pharmac y influenza virus vaccine,split 2004 zzLef t Arm [id number] 15 sanofi pasteur complet ed influenza virus vaccine,s plit 10/13/04 Given Ambulat ory Pharmac y tetanus-dipht h toxoids (Td) adult/adol 2004 [id number] 09 sanofi pasteur complet ed tetanus-d iphth toxoids (Td) adult/ado l 10/13/04 Given Ambulat ory Pharmac y tetanus and diphtheria toxoids, adsorbed, preservative free, for adult use (2 Lf of tetanus toxoid and 2 Lf of diphtheria toxoid) 1 2004 Unknown, Provider [id number] 09 Sanofi Pasteur (PMC) complet ed tetanus and diphtheri a toxoids, adsorbed, preservat truman free, for adult use (2 Lf of tetanus toxoid and 2 Lf of diphtheri a toxoid) DoD influenza virus vaccine, split virus (incl. purified surface antigen)-reti red CODE 1 2004 Unknown, Provider [id number] 15 Sanofi Pasteur ([facility]MC) complet ed influenza virus vaccine, split virus (incl. purified surface antigen)- retired CODE DoD influenza virus vaccine, whole virus 2002 zzLef t Arm [id number] 16 sanofi pasteur complet ed influenza virus vaccine, whole virus 06/16/03 Given Ambulat ory Pharmac y influenza virus vaccine, whole virus 2002 [id number] 16 sanofi pasteur complet ed influenza virus vaccine, whole virus 06/16/03 Given Ambulat ory Pharmac y influenza virus vaccine, whole virus 1 2002 Unknown, Provider [id number] 16 Sanofi Pasteur ([facility]MC) complet ed influenza virus vaccine, whole virus DoD Results Combined list of recent chemistry, hematology and other laboratory results from [facility] and [facility], ranging from 15 months to all on record, depending upon the facility. Order Name Results Value Reference Range Date Interpretation Specimen Comments Source Chemistr y Hemoglobin A1c 6.5 % 4.0 - 5.6 08/08 H Interpretiv e Data: Normal: 4.0 - 5.6% Increased Risk: 5.7 - 6.4% Diabetic Range: 6.5% For patients without diabetes, the normal range for the hemoglobin A1c test is between 4% and 5.6%. Hemoglobin A1c levels between 5.7% and 6.4% indicate increased risk of diabetes, and levels of 6.5% or higher indicate diabetes. Because studies have repeatedly shown that out-of-cont rol diabetes results in complicatio ns from the disease, the goal for people with diabetes is a hemoglobin A1c less than 7%. The higher the hemoglobin A1c, the higher the risks of developing complicatio ns related to diabetes. If confirmatio n is needed, consider recalling the patient and ordering Hemoglobin Electrophor esis. [facility] Chemistr y eAvg Glucose 140 mg/dL 08/08 [facility] Hemat[facility] Neutrophil % Auto 65.4 % 46.0 - 77.0 05/07 N [facility] Neutro Absolute 4.4 x10^3/mc L 2.0 - 7.0103 05/07 N [facility] Monocyte % Auto 8 % 1 - 12 05/07 N [facility] [place] Absolute 0.6 x10^3/mc L 0.2 - 0.8103 05/07 N [facility] Lymph Absolute 1.5 x10^3/mc L 1.2 - 4.0103 05/07 N [facility] Lymphocyte % Auto 23.2 % 20.0 - 40.0 05/07 N [facility] Eosinophil % Auto 2 % 0 - 5 05/07 N [facility] Eos Absolute 0.2 x10^3/mc L 0.0 - 0.7103 05/07 N [facility] Basophil % Auto 0.5 % 0.0 - 2.5 05/07 N [facility] Baso Absolute 0.0 x10^3/mc L 0.0 - 0.1103 05/07 N [facility] Chemistr y Vit B12 Lvl.LC 752 pg/mL 232 - 1245 05/07 Result Comment: Performed At: 01 [facility] [address], [place] [id number] Gregorio Brush PhD Ph:[phone] - [facility] Chemistr y Albumin 4.00 g/dL 3.50 - 5.20 05/07 N [facility] Chemist[facility] y Alk Phos 79 U/L 40 - 150 05/07 N [facility] Chemistr y ALT 18 U/L 5 - 55 05/07 N [facility] Chemistr y AST 15 U/L 5 - 34 05/07 N [facility] Chemist[facility] y Bilirubin Direct 0.1 mg/dL 0.1 - 0.5 05/07 N [facility] Chemistr y Bilirubin Total 0.3 mg/dL 0.2 - 1.2 05/07 N [facility] Chemistr y Protein Total 7.3 g/dL 6.4 - 8.3 05/07 N [facility] Hemat[facility] WBC 6.6 x10^3/mc L 4.0 - 11.0103 05/07 N [facility] RDW 13.5 % 11.0 - 14.9 05/07 N [facility] Hemat[facility] RBC 5.1 x10^6/mc L 3.6 - 5.0106 05/07 H - [facility] Hemat[facility] Platelets 230.0 x10^3/mc L 150.0 - 450.0103 05/07 N [facility] Hemat[facility] MPV 10.4 fL 7.4 - 10.4 05/07 N [facility] MCV 87 fL 80 - 97 05/07 N [facility] Hemat[facility] MCHC 32.6 g/dL 33.0 - 36.5 05/07 L [facility] Hemat[facility] MCH 28 pg 28 - 33 05/07 N [facility]emat[facility] Hemoglobin 14.4 g/dL 11.0 - 15.0 05/07 N [facility] Hematocrit 44 % 34 - 46 05/07 N [facility]emat[facility] Differenti al? Auto (05/07/24 10:21 AM) 05/07 N [facility] Chemistr y Ur Creat 35 mg/dL 05/07 [facility] Chemistr y Ur Microalb/U r Creat Ratio 54 mg/gCr 05/07 H [facility] Chemistr y Ur Microalbum in 19 mg/L 05/07 N Interpretiv e Data: To minimize intra-indiv idual variation, analysis of three random urine samples collected over the course of a week has also been recommended . [facility] Chemist[facility] y Cholestero l Total 140 mg/dL 05/07 N Interpretiv e Data: According to the [place] [employer] : AGES 0-19: Desirable: < 170 mg/dL Borderline High: 170-199 mg/dL High Blood Cholesterol : >/= 200 mg/dL ADULTS: Desirable < 200 mg/dL Borderline High: 200-239 mg/dL High Blood Cholesterol : >/= 240 mg/dL [facility] Chemist[facility] y HDL Cholestero l 41 mg/dL 40 - 59 05/07 N Interpretiv e Data: HDL (HIGH DENSITY LIPOPROTEIN ): ADULTS: Low: < 40 mg/dL High: >/= 60 mg/dL AGES 0 -19: Low: < 40 mg/dL Borderline Low: 40 - 45 mg/dL Acceptable: > 45 mg/dL [facility] Chemist[facility] y Chol/HDL 3 mg/dL 05/07 [facility] Chemist[facility] y LDL 78 mg/dL 100 - 130 05/07 L Interpretiv e Data: AGES 0-19: Desirable: < 110 mg/dL Borderline High: 110-129 mg/dL High: >/= 130 mg/dL ADULTS: Desirable: <100 mg/dL Near/above optimal: 100-130 mg/dL Borderline High: 131-159 mg/dL High: 160-189 mg/dL Very High: 190 mg/dL [facility]ika Chemistr y LDL/HDL 2 05/07 [facility] Chemistr y Triglyceri jack 120 mg/dL 7 - 149 05/07 N Interpretiv e Data: AGES 0-9: Desirable: < 75 mg/dL Borderline High: 75-99 mg/dL High: >/= 100 mg/dL AGES 10-19: Desirable: < 90 mg/dL Borderline High: 90-129 mg/dL High: >/= 130 mg/dL ADULTS: Desirable: < 150 mg/dL Borderline High: 150-199 mg/dL High: >/= 240 mg/dL Very High: >/= 500 mg/dL [facility] Chemistr y Vitamin D 25 [place] 46.2 ng/mL 30.0 - 100.0 05/07 N Interpretiv e Data: Classificat ion of Vitamin D Status: Deficient: <20 ng/mL Insufficien t: 20-29 ng/mL Sufficient: 30-100 ng/mL Possible Toxicity: >100 ng/mL This assay is for the quantitativ e determinati on of total 25 (OH) vitamin D. It is intended as an aid in the determinati on of vitamin D sufficiency . Results should always be interpreted in conjunction with the patient's medical history, clinical presentatio n, and other findings. Testing performed by [facility] ce. [id number] FSAM EPILAB Chemistr y Magnesium Lvl 2.0 mg/dL 1.6 - 2.6 05/07 N [facility] erika Chemistr y eAvg Glucose 140 mg/dL 05/07 [facility] erika Chemistr y Hemoglobin A1c 6.5 % 4.0 - 5.6 05/07 H Interpretiv e Data: Normal: 4.0 - 5.6% Increased Risk: 5.7 - 6.4% Diabetic Range: 6.5% For patients without diabetes, the normal range for the hemoglobin A1c test is between 4% and 5.6%. Hemoglobin A1c levels between 5.7% and 6.4% indicate increased risk of diabetes, and levels of 6.5% or higher indicate diabetes. Because studies have repeatedly shown that out-of-cont rol diabetes results in complicatio ns from the disease, the goal for people with diabetes is a hemoglobin A1c less than 7%. The higher the hemoglobin A1c, the higher the risks of developing complicatio ns related to diabetes. If confirmatio n is needed, consider recalling the patient and ordering Hemoglobin Electrophor esis. [facility] Chemistr y Potassium Lvl 4.7 mmol/L 3.5 - 5.1 02/05 N [facility] Chemistr y Glucose Lvl 149 mg/dL 74 - 99 02/05 H [facility] Chemistr y Creatinine Level 1.40 mg/dL 0.57 - 1.11 02/05 H [facility] Chemistr y CO2 23 mmol/L 22 - 29 02/05 N [facility] Chemistr y Chloride 108 mmol/L 98 - 107 02/05 H [facility] Chemistr y Phosphorus 3.2 mg/dL 2.3 - 4.7 02/05 N [facility] Chemistr y Sodium 139 mmol/L 136 - 145 02/05 N [facility] Chemistr y Albumin 3.70 g/dL 3.50 - 5.20 02/05 N [facility] Chemistr y AGAP 8.00 0.00 - 15.00 02/05 N [facility] Chemistr y Calcium 10.1 mg/dL 8.4 - 10.2 02/05 N [facility] Chemistr y BUN/Creat Ratio 19 mg/dL 12 - 20 02/05 N [facility] Chemistr y BUN 26 mg/dL 7 - 20 02/05 H [facility] Chemistr y Hemoglobin A1c 6.7 % 4.0 - 5.6 02/05 H Interpretiv e Data: Normal: 4.0 - 5.6% Increased Risk: 5.7 - 6.4% Diabetic Range: 6.5% For patients without diabetes, the normal range for the hemoglobin A1c test is between 4% and 5.6%. Hemoglobin A1c levels between 5.7% and 6.4% indicate increased risk of diabetes, and levels of 6.5% or higher indicate diabetes. Because studies have repeatedly shown that out-of-cont rol diabetes results in complicatio ns from the disease, the goal for people with diabetes is a hemoglobin A1c less than 7%. The higher the hemoglobin A1c, the higher the risks of developing complicatio ns related to diabetes. If confirmatio n is needed, consider recalling the patient and ordering Hemoglobin Electrophor esis. [facility] Chemistr y eAvg Glucose 146 mg/dL 02/05 [facility] Chemistr y eGFR CKD EPI 44 mL/min/1 .73_m2 02/05 Interpretiv e Data: Estimated Glomerular Filtration Rate (eGFR) calculated using the 2020 Chronic Kidney Disease-Epi demiology (CKD-EPI) Collaborati on creatinine equation; units of measure are mL/min/1.73 m2. Results are only valid for adults (>=18 years) whose serum creatinine is in steady state. eGFR calculation s are not valid for patients with acute kidney injury and for patients on dialysis. Creatinine- based estimates of kidney function may also be inaccurate in patients with reduced creatinine generation due to decreased muscle mass (e.g., malnutritio n, severe hypoalbumin emia, sarcopenia, chronic neuromuscul ar disease, amputations , severe heart failure or liver disease) and in patients with increased creatinine generation due to increased muscle mass (e.g., muscle builders, anabolic steroids) or increased dietary intake. CKD is diagnosed based on abnormaliti es of kidney structure or function, present for >3 months, with implication s for health and disease. CKD is classified and staged based on cause, eGFR and albuminuria (quantified as urine albumin to creatinine ratio). An eGFR >60 mL/min/1.73 m2 in the absence of increased urine albumin excretion or structural abnormaliti es does not CKD. eGFR provides only an estimate of measured GFR within +/- 30% for most patients. As mentioned, nutritional status and muscle mass, among many factors, may lead to inaccuracy in the estimate. Consider ordering the creatinine- cystatin C panel if better accuracy is needed for clinical decision-cher schofield. eGFR (mL/min/1.7 3 m2) CKD stage Interpretat ion Normal 60-89 Mild decrease 45-59 Mild to moderate decrease 30-44 Moderate to severe decrease 15-29 Severe decrease <15 Kidney failure -375 [facility] Chemistr y eGFR CKD EPI 44 mL/min/1 .73_m2 10/30 Interpretiv e Data: Estimated Glomerular Filtration Rate (eGFR) calculated using the 2020 Chronic Kidney Disease-Epi demiology (CKD-EPI) Collaborati on creatinine equation; units of measure are mL/min/1.73 m2. Results are only valid for adults (>=18 years) whose serum creatinine is in steady state. eGFR calculation s are not valid for patients with acute kidney injury and for patients on dialysis. Creatinine- based estimates of kidney function may also be inaccurate in patients with reduced creatinine generation due to decreased muscle mass (e.g., malnutritio n, severe hypoalbumin emia, sarcopenia, chronic neuromuscul ar disease, amputations , severe heart failure or liver disease) and in patients with increased creatinine generation due to increased muscle mass (e.g., muscle builders, anabolic steroids) or increased dietary intake. CKD is diagnosed based on abnormaliti es of kidney structure or function, present for >3 months, with implication s for health and disease. CKD is classified and staged based on cause, eGFR and albuminuria (quantified as urine albumin to creatinine ratio). An eGFR >60 mL/min/1.73 m2 in the absence of increased urine albumin excretion or structural abnormaliti es does not CKD. eGFR provides only an estimate of measured GFR within +/- 30% for most patients. As mentioned, nutritional status and muscle mass, among many factors, may lead to inaccuracy in the estimate. Consider ordering the creatinine- cystatin C panel if better accuracy is needed for clinical decision-cher schofield. eGFR (mL/min/1.7 3 m2) CKD stage Interpretat ion Normal 60-89 Mild decrease 45-59 Mild to moderate decrease 30-44 Moderate to severe decrease 15-29 Severe decrease <15 Kidney failure [facility] Chemistr y Hemoglobin A1c 7.0 % 4.0 - 5.6 10/30 H Interpretiv e Data: Normal: 4.0 - 5.6% Increased Risk: 5.7 - 6.4% Diabetic Range: 6.5% For patients without diabetes, the normal range for the hemoglobin A1c test is between 4% and 5.6%. Hemoglobin A1c levels between 5.7% and 6.4% indicate increased risk of diabetes, and levels of 6.5% or higher indicate diabetes. Because studies have repeatedly shown that out-of-cont rol diabetes results in complicatio ns from the disease, the goal for people with diabetes is a hemoglobin A1c less than 7%. The higher the hemoglobin A1c, the higher the risks of developing complicatio ns related to diabetes. If confirmatio n is needed, consider recalling the patient and ordering Hemoglobin Electrophor esis. [facility] Chemistr y eAvg Glucose 154 mg/dL 10/30 [facility] Chemistr y BUN 32 mg/dL 7 - 20 10/30 H [facility] Chemistr y Albumin 3.90 g/dL 3.50 - 5.20 10/30 N [facility] Chemistr y AGAP 11.00 0.00 - 15.00 10/30 N [facility] Chemistr y Calcium 10.5 mg/dL 8.4 - 10.2 10/30 H [facility] Chemistr y BUN/Creat Ratio 23 mg/dL 12 - 20 10/30 H [facility] Chemistr y Creatinine Level 1.40 mg/dL 0.57 - 1.11 10/30 H [facility] Chemistr y CO2 27 mmol/L 22 - 29 10/30 N [facility] Chemistr y Chloride 101 mmol/L 98 - 107 03/12 /2024 N -375 [facility] Chemistr y Potassium Lvl 4.7 mmol/L 3.5 - 5.1 10/30 N [id number] [facility] Chemistr y Glucose Lvl 122 mg/dL 74 - 99 10/30 H [id number] [facility] Chemistr y Phosphorus 3.0 mg/dL 2.3 - 4.7 10/30 N [id number] th [facility] Chemistr y Sodium 139 mmol/L 136 - 145 10/30 N [id number] th [facility] AP Specimen s HPV Genotype 16 Negative 26 (09/21/23 12:12 PM) 09/21 N Interpretiv e Data: HPV GENOTYPE 16 Negative: NEGATIVE for HPV DNA genotype 16 DNA. HPV GENOTYPE 16 Positive: POSITIVE for HPV genotype 16 DNA. The radha HPV Test is a qualitative in vitro test for the detection Human Papillomavi rochelle in clinician-c ollected cervical and vaginal specimens. It detects the following high-risk HPV types 16, 18, 31, 33, 35, 39, 45, 51, 52, 56, 58, 66, and 68. Note: The modificatio n to specimen source of vaginal was developed and its performance characteris tics determined by [facility], [facility]. Vaginal source has not been cleared or approved by the U. S. Food and Drug Administrat ion. This modified vaginal specimen HPV test is for clinical purposes. This laboratory is certified under the Clinical Laboratory Improvement Amendments of 1988 (CLIA-88) as qualified to perform high complexity clinical laboratory testing. Clinician collected PreservCyt ThinPrep vaginal specimen are an approved additional specimen source, based on an internal laboratory validation. Limitations : A negative result does NOT preclude the presence of HPV infection because results depend on adequate specimen collection, absence of inhibitors and sufficient DNA to be detected. Correlation with cytologic findings is recommended as applicable. Questions about process or methodology contact Molecular Department at [phone] or [phone]. Unknown Organizat ion AP Specimen s HPV Genotype 18 Negative 24 (09/21/23 12:12 PM) 09/21 N Interpretiv e Data: HPV GENOTYPE 18 Negative: NEGATIVE for HPV genotype 18 DNA. HPV GENOTYPE 18 Positive: POSITIVE for HPV genotype 18 DNA. The radha HPV Test is a qualitative in vitro test for the detection Human Papillomavi rochelle in clinician-c ollected cervical and vaginal specimens. It detects the following high-risk HPV types 16, 18, 31, 33, 35, 39, 45, 51, 52, 56, 58, 66, and 68. Note: The modificatio n to specimen source of vaginal was developed and its performance characteris tics determined by [facility], [facility]. Vaginal source has not been cleared or approved by the U. S. Food and Drug Administrat [employer]. This modified vaginal specimen HPV test is for clinical purposes. This laboratory is certified under the Clinical Laboratory Improvement Amendments of 1988 (CLIA-88) as qualified to perform high complexity clinical laboratory testing. Clinician collected PreservCyt ThinPrep vaginal specimen are an approved additional specimen source, based on an internal laboratory validation. Limitations : A negative result does NOT preclude the presence of HPV infection because results depend on adequate specimen collection, absence of inhibitors and sufficient DNA to be detected. Correlation with cytologic findings is recommended as applicable. Questions about process or methodology contact Molecular Department at [phone] or [phone]. Unknown Organizat ion AP Specimen s HPV Typing High Risk Negative 25 (09/21/23 12:12 PM) 09/21 N Interpretiv e Data: HPV Typing High Risk Negative: NEGATIVE for concurrentl y detecting the rest of the 12 high risk types HPV DNA (31,33,35,3 9,45,51,52, 56,58,59,66 and 68) without differentia tion. HPV Typing High Risk Positive: POSITIVE for concurrentl y detecting the rest of the 12 high risk types HPV DNA (31,33,35,3 9,45,51,52, 56,58,59,66 and 68) without differentia tion. The radha HPV Test is a qualitative in vitro test for the detection Human Papillomavi rochelle in clinician-c ollected cervical and vaginal specimens. It detects the following high-risk HPV types 16, 18, 31, 33, 35, 39, 45, 51, 52, 56, 58, 66, and 68. Note: The modificatio n to specimen source of vaginal was developed and its performance characteris tics determined by [facility], [facility]. Vaginal source has not been cleared or approved by the U. S. Food and Drug Administrat ion. This modified vaginal specimen HPV test is for clinical purposes. This laboratory is certified under the Clinical Laboratory Improvement Amendments of 1988 (CLIA-88) as qualified to perform high complexity clinical laboratory testing. Clinician collected PreservCyt ThinPrep vaginal specimen are an approved additional specimen source, based on an internal laboratory validation. Limitations : A negative result does NOT preclude the presence of HPV infection because results depend on adequate specimen collection, absence of inhibitors and sufficient DNA to be detected. Correlation with cytologic findings is recommended as applicable. Questions about process or methodology contact Molecular Department at or [phone]. Unknown Organizat ion AP Specimen s AP Cyto COURT REPORTER Patient: Héctor Monahan Specimen #: [id number] Patholog ist: Yanira West MD, Damon, , USAF Accessio n: 09/26/2023 [facility] DEPARTME NT OF PATHOLOG Y [address] [place] [address] [address] [id number] Cytology Gynecolo gic Report Patient: Héctor Monahan Specimen #: [id number] [facility] ID:: [id number] [facility] r #: [id number] Taken: 09/21/2023 12:12 /Age: 89/196 7 (Age: 57) Received : 09/26/2023 10:24 Physicia n(s:): SHAYLA HEAD Reported : 09/29/2023 Specimen (s) Received Taken Rec Thin Prep - Cervical w/o reflex HPV 09/21/2023 12:12 09/26/2023 10:24 Final Diagnosi s Thin Prep - Cervical w/o reflex HPV: Satisfac tory for evaluati on; endocerv ical componen t present. Atypical squamous cells of undeterm ined signific ance (ASCUS). This Pap test was evaluate d with the assistan ce of the Thin Prep Test Imaging System. Due to cytologi c findings at the [employer] Analyst microsco pe or selectio n of the case for QC, comprehe nsive manual re-scree fidencio by a cytotech nologist was required . Elect ronicall y Signed by Yanira West MD, Damon, , [facility] Clinical Diagnosi s and History no hx abn; co test 5yrs if nl Prior History Signed Out Specimen # Interpre tation 03/02/20 17 [id number] NEGATIVE 04/13/20 12 [id number] NEGATIVE 10/16/19 09 [id number] NEGATIVE 09/21/19 08 [id number] NEGATIVE CPT Codes: A; 72447, 03302 The Pap test is a screenin g test for precurso rs of squamous cell carcinom a with an irreduci ble false negative rate of around 5%. It is not designed to detect glandula r lesions. A negative test does not ensure that no disease is present. 09/21 [facility] Chemistr y C-Peptide Lvl 4.42 ng/mL 1.10 - 4.40 07/25 H Interpretiv e Data: METHODOLOGY : Testing performed by immunoturbi dimetric assay. [id number] FSAM EPILAB Chemistr y Hemoglobin A1c 7.7 % 4.0 - 5.6 07/25 H Interpretiv e Data: Normal: 4.0 - 5.6% Increased Risk: 5.7 - 6.4% Diabetic Range: 6.5% For patients without diabetes, the normal range for the hemoglobin A1c test is between 4% and 5.6%. Hemoglobin A1c levels between 5.7% and 6.4% indicate increased risk of diabetes, and levels of 6.5% or higher indicate diabetes. Because studies have repeatedly shown that out-of-cont rol diabetes results in complicatio ns from the disease, the goal for people with diabetes is a hemoglobin A1c less than 7%. The higher the hemoglobin A1c, the higher the risks of developing complicatio ns related to diabetes. If confirmatio n is needed, consider recalling the patient and ordering Hemoglobin Electrophor esis. [facility] Chemistr y eAvg Glucose 174 mg/dL 07/25 [facility] Chemistr y Phosphorus 3.6 mg/dL 2.3 - 4.7 07/25 N [facility] Chemistr y AGAP 11.00 0.00 - 15.00 07/25 N [facility] Chemistr y Albumin 3.80 g/dL 3.50 - 5.20 07/25 N [facility] Chemistr y BUN 30 mg/dL 7 - 20 07/25 H [facility] Chemistr y CO2 25 mmol/L 22 - 29 07/25 N [facility] Chemistr y Calcium 9.9 mg/dL 8.4 - 10.2 07/25 N [facility] Chemistr y Chloride 102 mmol/L 98 - 107 07/25 N [facility] Chemistr y BUN/Creat Ratio 19 mg/dL 12 - 07/25 N [facility] Chemistr y Potassium Lvl 3.9 mmol/L 3.5 - 5.1 07/25 N [facility] Chemistr y Sodium 138 mmol/L 136 - 145 07/25 N [facility] Chemistr y Creatinine Level 1.60 mg/dL 0.57 - 1.11 07/25 H [facility] Chemistr y Glucose Lvl 113 mg/dL 74 - 99 07/25 H [facility] Chemistr y eGFR CKD EPI 38 mL/min/1 .73_m2 07/25 Interpretiv e Data: Estimated Glomerular Filtration Rate (eGFR) calculated using the 2020 Chronic Kidney Disease-Epi demiology (CKD-EPI) Collaborati on creatinine equation; units of measure are mL/min/1.73 m2. Results are only valid for adults (>=18 years) whose serum creatinine is in steady state. eGFR calculation s are not valid for patients with acute kidney injury and for patients on dialysis. Creatinine- based estimates of kidney function may also be inaccurate in patients with reduced creatinine generation due to decreased muscle mass (e.g., malnutritio n, severe hypoalbumin emia, sarcopenia, chronic neuromuscul ar disease, amputations , severe heart failure or liver disease) and in patients with increased creatinine generation due to increased muscle mass (e.g., muscle builders, anabolic steroids) or increased dietary intake. CKD is diagnosed based on abnormaliti es of kidney structure or function, present for >3 months, with implication s for health and disease. CKD is classified and staged based on cause, eGFR and albuminuria (quantified as urine albumin to creatinine ratio). An eGFR >60 mL/min/1.73 m2 in the absence of increased urine albumin excretion or structural abnormaliti es does not CKD. eGFR provides only an estimate of measured GFR within +/- 30% for most patients. As mentioned, nutritional status and muscle mass, among many factors, may lead to inaccuracy in the estimate. Consider ordering the creatinine- cystatin C panel if better accuracy is needed for clinical decision-cher schofield. eGFR (mL/min/1.7 3 m2) CKD stage Interpretat ion Normal 60-89 Mild decrease 45-59 Mild to moderate decrease 30-44 Moderate to severe decrease 15-29 Severe decrease <15 Kidney failure [facility] Immunolo gy/Serol ogy YANI-65.LC <5.0 U/mL 07/25 Result Comment: Performed At: [address] [id number] Dioni Fenton MD Ph:[phone] [id number] [facility] Hemat[facility] Eosinophil % Auto 2 % 0 - 5 05/30 N [facility] Baso Absolute 0.0 x10^3/mc L 0.0 - 0.1103 05/30 N [facility] Eos Absolute 0.2 x10^3/mc L 0.0 - 0.7103 05/30 N [facility] Basophil % Auto 0.4 % 0.0 - 2.5 05/30 N [facility] Lymph Absolute 1.2 x10^3/mc L 1.2 - 4.0103 10/10 /2023 N [facility] Lymphocyte % Auto 16.5 % 20.0 - 40.0 05/30 L [facility] Monocyte % Auto 8 % 1 - 12 05/30 N [facility]emat[facility] [place] Absolute 0.6 x10^3/mc L 0.2 - 0.8103 05/30 N [facility] Neutro Absolute 5.4 x10^3/mc L 2.0 - 7.0103 05/30 N [facility]emat[facility] Neutrophil % Auto 73.0 % 46.0 - 77.0 05/30 N [facility] Chemistr y Vit B12 Lvl.LC 1720 pg/mL 05/30 H Result Comment: Performed At: [address] [id number] Gregorio Brush PhD Ph:[phone] [facility] Chemist[facility] eGFR CKD EPI 35 mL/min/1 .73_m2 05/30 Interpretiv e Data: Estimated Glomerular Filtration Rate (eGFR) calculated using the 2020 Chronic Kidney Disease-Epi demiology (CKD-EPI) Collaborati on creatinine equation; units of measure are mL/min/1.73 m2. Results are only valid for adults (>=18 years) whose serum creatinine is in steady state. eGFR calculation s are not valid for patients with acute kidney injury and for patients on dialysis. Creatinine- based estimates of kidney function may also be inaccurate in patients with reduced creatinine generation due to decreased muscle mass (e.g., malnutritio n, severe hypoalbumin emia, sarcopenia, chronic neuromuscul ar disease, amputations , severe heart failure or liver disease) and in patients with increased creatinine generation due to increased muscle mass (e.g., muscle builders, anabolic steroids) or increased dietary intake. CKD is diagnosed based on abnormaliti es of kidney structure or function, present for >3 months, with implication s for health and disease. CKD is classified and staged based on cause, eGFR and albuminuria (quantified as urine albumin to creatinine ratio). An eGFR >60 mL/min/1.73 m2 in the absence of increased urine albumin excretion or structural abnormaliti es does not CKD. eGFR provides only an estimate of measured GFR within +/- 30% for most patients. As mentioned, nutritional status and muscle mass, among many factors, may lead to inaccuracy in the estimate. Consider ordering the creatinine- cystatin C panel if better accuracy is needed for clinical decision-cher schofield. eGFR (mL/min/1.7 3 m2) CKD stage Interpretat ion Normal 60-89 Mild decrease 45-59 Mild to moderate decrease 30-44 Moderate to severe decrease 15-29 Severe decrease <15 Kidney failure [facility] Vitamin D 25 OH 47.5 ng/mL 30.0 - 100.0 05/30 N Interpretiv e Data: Classificat ion of Vitamin D Status: Deficient: <20 ng/mL Insufficien t: 20-29 ng/mL Sufficient: 30-100 ng/mL Possible Toxicity: >100 ng/mL This assay is for the quantitativ e determinati on of total 25 (OH) vitamin D. It is intended as an aid in the determinati on of vitamin D sufficiency . Results should always be interpreted in conjunction with the patient's medical history, clinical presentatio n, and other findings. Testing performed by [id number] Chem[facility] LDL/HDL 2 05/30 [facility] Triglyceri jack 198 mg/dL 7 - 149 05/30 H Interpretiv e Data: AGES 0-9: Desirable: < 75 mg/dL Borderline High: 75-99 mg/dL High: >/= 100 mg/dL AGES 10-19: Desirable: < 90 mg/dL Borderline High: 90-129 mg/dL High: >/= 130 mg/dL ADULTS: Desirable: < 150 mg/dL Borderline High: 150-199 mg/dL High: >/= 240 mg/dL Very High: >/= 500 mg/dL [facility] Chol/HDL 4 mg/dL 05/30 [facility] Cholestero l Total 160 mg/dL 05/30 N Interpretiv e Data: According to the [place] [employer] : AGES 0-19: Desirable: < 170 mg/dL Borderline High: 170-199 mg/dL High Blood Cholesterol : >/= 200 mg/dL ADULTS: Desirable < 200 mg/dL Borderline High: 200-239 mg/dL High Blood Cholesterol : >/= 240 mg/dL [facility] HDL Cholestero l 39 mg/dL 40 - 59 05/30 L Interpretiv e Data: HDL (HIGH DENSITY LIPOPROTEIN ): ADULTS: Low: < 40 mg/dL High: >/= 60 mg/dL AGES 0 -19: Low: < 40 mg/dL Borderline Low: 40 - 45 mg/dL Acceptable: > 45 mg/dL [facility] LDL 92 mg/dL 100 - 130 05/30 L Interpretiv e Data: AGES 0-19: Desirable: < 110 mg/dL Borderline High: 110-129 mg/dL High: >/= 130 mg/dL ADULTS: Desirable: <100 mg/dL Near/above optimal: 100-130 mg/dL Borderline High: 131-159 mg/dL High: 160-189 mg/dL Very High: 190 mg/dL [facility] Hemoglobin 15.3 g/dL 11.0 - 15.0 05/30 H [facility] Hematocrit 47 % 34 - 46 05/30 H [facility] Platelets 252.0 x10^3/mc L 150.0 - 450.0103 05/30 N [facility] MPV 10.7 fL 7.4 - 10.4 05/30 H [facility] Hemat[facility] MCV 85 fL 80 - 97 05/30 N [facility] MCHC 32.6 g/dL 33.0 - 36.5 05/30 L [facility] MCH 28 pg 28 - 33 05/30 N [facility] Hemat[facility] WBC 7.4 x10^3/mc L 4.0 - 11.0103 05/30 N [facility]emat[facility] RDW 13.5 % 11.0 - 14.9 05/30 N [facility] Hemat[facility] RBC 5.5 x10^6/mc L 3.6 - 5.0106 05/30 H [facility] Chemist[facility] y Hemoglobin A1c 7.9 % 4.0 - 5.6 05/30 H Interpretiv e Data: Normal: 4.0 - 5.6% Increased Risk: 5.7 - 6.4% Diabetic Range: 6.5% For patients without diabetes, the normal range for the hemoglobin A1c test is between 4% and 5.6%. Hemoglobin A1c levels between 5.7% and 6.4% indicate increased risk of diabetes, and levels of 6.5% or higher indicate diabetes. Because studies have repeatedly shown that out-of-cont rol diabetes results in complicatio ns from the disease, the goal for people with diabetes is a hemoglobin A1c less than 7%. The higher the hemoglobin A1c, the higher the risks of developing complicatio ns related to diabetes. If confirmatio n is needed, consider recalling the patient and ordering Hemoglobin Electrophor esis. [facility] Chemist[facility] eAvg Glucose 180 mg/dL 05/30 [facility] Chemist[facility] Ur Creat 42 mg/dL 05/30 [facility] Chemist[facility] Ur Microalb/U r Creat Ratio 14.3 mg/gCr 05/30 [facility] Chemist[facility] Ur Microalbum in 6 mg/gCr 05/30 N Interpretiv e Data: To minimize intra-indiv idual variation, analysis of three random urine samples collected over the course of a week has also been recommended . [facility] Chem[facility] TSH 2.980 mIU/L 0.270 - 4.200 05/30 N Interpretiv e Data: Recommend: TPO/Thyrope roxidase Antibody when TSH result is > 4.2 uIU/mL [id number] Chem[facility] BUN 34 mg/dL 7 - 20 05/30 H - [facility] Chemist[facility] Bilirubin Total 0.5 mg/dL 0.2 - 1.2 05/30 N [facility] Chemist[facility] BUN/Creat Ratio 20 mg/dL 12 - 20 05/30 N [facility] Chemist[facility] Protein Total 7.9 g/dL 6.4 - 8.3 05/30 N [facility] Chemist[facility] Glucose Lvl 178 mg/dL 74 - 99 05/30 H [facility] Chemist[facility] AGAP 13.00 0.00 - 15.00 05/30 N [facility] CO2 25 mmol/L 22 - 29 05/30 N [facility] Creatinine Level 1.70 mg/dL 0.57 - 1.11 05/30 H [facility] Alk Phos 95 U/L 40 - 150 05/30 N [facility] Chemist[facility] Albumin 4.10 g/dL 3.50 - 5.20 05/30 N 375 [facility] AST 21 U/L 5 - 34 05/30 N [facility] Chemist[facility] Potassium Lvl 4.3 mmol/L 3.5 - 5.1 05/30 N [facility] Chemist[facility] ALT 28 U/L 5 - 55 05/30 N [facility] Chemist[facility] Sodium 137 mmol/L 136 - 145 05/30 N 375 [facility] Calcium 10.2 mg/dL 8.4 - 10.2 05/30 N [facility] Chemist[facility] Chloride 99 mmol/L 98 - 107 05/30 N [facility] Chemist[facility] Creatinine Level 1.40 mg/dL 0.57 - 1.11 03/09 H [facility] Chemist[facility] y eGFR CKD EPI 44 mL/min/1 .73_m2 03/09 Interpretiv e Data: Estimated Glomerular Filtration Rate (eGFR) calculated using the 2020 Chronic Kidney Disease-Epi demiology (CKD-EPI) Collaborati on creatinine equation; units of measure are mL/min/1.73 m2. Results are only valid for adults (>=18 years) whose serum creatinine is in steady state. eGFR calculation s are not valid for patients with acute kidney injury and for patients on dialysis. Creatinine- based estimates of kidney function may also be inaccurate in patients with reduced creatinine generation due to decreased muscle mass (e.g., malnutritio n, severe hypoalbumin emia, sarcopenia, chronic neuromuscul ar disease, amputations , severe heart failure or liver disease) and in patients with increased creatinine generation due to increased muscle mass (e.g., muscle builders, anabolic steroids) or increased dietary intake. CKD is diagnosed based on abnormaliti es of kidney structure or function, present for >3 months, with implication s for health and disease. CKD is classified and staged based on cause, eGFR and albuminuria (quantified as urine albumin to creatinine ratio). An eGFR >60 mL/min/1.73 m2 in the absence of increased urine albumin excretion or structural abnormaliti es does not CKD. eGFR provides only an estimate of measured GFR within +/- 30% for most patients. As mentioned, nutritional status and muscle mass, among many factors, may lead to inaccuracy in the estimate. Consider ordering the creatinine- cystatin C panel if better accuracy is needed for clinical decision-cher schofield. eGFR (mL/min/1.7 3 m2) CKD stage Interpretat ion Normal 60-89 Mild decrease 45-59 Mild to moderate decrease 30-44 Moderate to severe decrease 15-29 Severe decrease <15 Kidney failure [facility] Chemist[facility] y Hemoglobin A1c 7.5 % 4.0 - 5.6 02/14 H Interpretiv e Data: Normal: 4.0 - 5.6% Increased Risk: 5.7 - 6.4% Diabetic Range: 6.5% For patients without diabetes, the normal range for the hemoglobin A1c test is between 4% and 5.6%. Hemoglobin A1c levels between 5.7% and 6.4% indicate increased risk of diabetes, and levels of 6.5% or higher indicate diabetes. Because studies have repeatedly shown that out-of-cont rol diabetes results in complicatio ns from the disease, the goal for people with diabetes is a hemoglobin A1c less than 7%. The higher the hemoglobin A1c, the higher the risks of developing complicatio ns related to diabetes. If confirmatio n is needed, consider recalling the patient and ordering Hemoglobin Electrophor esis. [facility] Chemist[facility] y eAvg Glucose 169 mg/dL 02/14 [facility] Chem[facility] Chloride 102 mmol/L 98 - 107 02/14 N [facility] Chemist[facility] y CO2 26 mmol/L 22 - 29 02/14 N [facility] Chemist[facility] y Creatinine Level 1.50 mg/dL 0.57 - 1.11 02/14 H [facility] Chemist[facility] y Glucose Lvl 109 mg/dL 74 - 99 02/14 H [facility] Chemist[facility] y Potassium Lvl 4.6 mmol/L 3.5 - 5.1 02/14 N [facility] Chemist[facility] y AGAP 9.00 0.00 - 15.00 02/14 N [facility] Chemist[facility] y Albumin 4.00 g/dL 3.50 - 5.20 02/14 N [facility] Chemist[facility] y BUN 28 mg/dL 7 - 20 02/14 H [facility] Chemist[facility] y BUN/Creat Ratio 19 mg/dL 12 - 20 02/14 N [facility] Chemist[facility] y Calcium 10.5 mg/dL 8.4 - 10.2 02/14 H [facility] Chemist[facility] y Sodium 137 mmol/L 136 - 145 02/14 N [facility] Chemist[facility] y Phosphorus 2.8 mg/dL 2.3 - 4.7 02/14 N [facility] Chemist[facility] y eGFR CKD EPI 41 mL/min/1 .73_m2 02/14 Interpretiv e Data: Estimated Glomerular Filtration Rate (eGFR) calculated using the 2020 Chronic Kidney Disease-Epi demiology (CKD-EPI) Collaborati on creatinine equation; units of measure are mL/min/1.73 m2. Results are only valid for adults (>=18 years) whose serum creatinine is in steady state. eGFR calculation s are not valid for patients with acute kidney injury and for patients on dialysis. Creatinine- based estimates of kidney function may also be inaccurate in patients with reduced creatinine generation due to decreased muscle mass (e.g., malnutritio n, severe hypoalbumin emia, sarcopenia, chronic neuromuscul ar disease, amputations , severe heart failure or liver disease) and in patients with increased creatinine generation due to increased muscle mass (e.g., muscle builders, anabolic steroids) or increased dietary intake. CKD is diagnosed based on abnormaliti es of kidney structure or function, present for >3 months, with implication s for health and disease. CKD is classified and staged based on cause, eGFR and albuminuria (quantified as urine albumin to creatinine ratio). An eGFR >60 mL/min/1.73 m2 in the absence of increased urine albumin excretion or structural abnormaliti es does not CKD. eGFR provides only an estimate of measured GFR within +/- 30% for most patients. As mentioned, nutritional status and muscle mass, among many factors, may lead to inaccuracy in the estimate. Consider ordering the creatinine- cystatin C panel if better accuracy is needed for clinical decision-cher schofield. eGFR (mL/min/1.7 3 m2) CKD stage Interpretat ion Normal 60-89 Mild decrease 45-59 Mild to moderate decrease 30-44 Moderate to severe decrease 15-29 Severe decrease <15 Kidney failure [facility] Vital Signs Combined list of inpatient and outpatient Vital Signs from Department of Defense and [facility], ranging from 12 months to all on record, depending upon the facility. Vital Sign Value Date Comments Source Peripheral Pulse Rate 91 bpm 09/12/2024 16:33:00 [facility] Mean Arterial Pressure, Calc 98 mm[Hg] 09/12/2024 16:33:00 [facility] Systolic Blood Pressure 146 mm[Hg] 09/12/2024 16:33:00 [facility] Diastolic Blood Pressure 74 mm[Hg] 09/12/2024 16:33:00 [facility] Mean Arterial Pressure, Calc 90 mm[Hg] 05/14/2024 15:30:00 [facility] Peripheral Pulse Rate 85 bpm 05/14/2024 15:30:00 [facility] Respiratory Rate 16 br/min 05/14/2024 15:30:00 [facility] Systolic Blood Pressure 117 mm[Hg] 05/14/2024 15:30:00 [facility] Diastolic Blood Pressure 76 mm[Hg] 05/14/2024 15:30:00 [facility] BP Site Left arm 05/14/2024 15:30:00 [facility] Blood Pressure Manual Automatic 05/14/2024 15:30:00 [facility] BP Site Left arm 02/15/2024 16:58:00 [facility] Blood Pressure Manual Automatic 02/15/2024 16:58:00 [facility] Respiratory Rate 16 br/min 02/15/2024 16:58:00 [facility] Peripheral Pulse Rate 88 bpm 02/15/2024 16:58:00 [facility] Mean Arterial Pressure, Calc 89 mm[Hg] 02/15/2024 16:58:00 [facility] Systolic Blood Pressure 114 mm[Hg] 02/15/2024 16:58:00 [facility] Diastolic Blood Pressure 76 mm[Hg] 02/15/2024 16:58:00 [facility] Peripheral Pulse Rate 83 bpm 12/19/2023 15:25:00 [facility] Mean Arterial Pressure, Calc 93 mm[Hg] 12/19/2023 15:25:00 [facility] Systolic Blood Pressure 131 mm[Hg] 12/19/2023 15:25:00 [facility] Diastolic Blood Pressure 74 mm[Hg] 12/19/2023 15:25:00 [facility] Peripheral Pulse Rate 106 bpm 09/21/2023 16:10:00 [facility] Mean Arterial Pressure, Calc 97 mm[Hg] 09/21/2023 16:10:00 [facility] Systolic Blood Pressure 129 mm[Hg] 09/21/2023 16:10:00 [facility] Diastolic Blood Pressure 81 mm[Hg] 09/21/2023 16:10:00 [facility] Respiratory Rate 16 br/min 09/21/2023 16:10:00 [facility] Blood Pressure Manual Automatic 09/21/2023 16:10:00 [facility] BP Site Left arm 09/21/2023 16:10:00 [facility] Temperature Oral 37.1 Jonna 09/21/2023 16:10:00 [facility] Blood Pressure Manual Automatic 02/22/2023 15:47:00 [facility] BP Site Left arm 02/22/2023 15:47:00 [facility] Systolic Blood Pressure 117 mm[Hg] 02/22/2023 15:47:00 [facility] Diastolic Blood Pressure 66 mm[Hg] 02/22/2023 15:47:00 [facility] Peripheral Pulse Rate 96 bpm 02/22/2023 15:47:00 [facility] Mean Arterial Pressure, Calc 83 mm[Hg] 02/22/2023 15:47:00 [facility] Respiratory Rate 16 br/min 02/22/2023 15:47:00 [facility] Blood Pressure Manual Automatic 06/08/2023 18:11:00 [facility] Respiratory Rate 16 br/min 06/08/2023 18:11:00 [facility] BP Site Left arm 06/08/2023 18:11:00 [facility] Peripheral Pulse Rate 91 bpm 06/08/2023 18:11:00 [facility] Mean Arterial Pressure, Calc 83 mm[Hg] 06/08/2023 18:11:00 [facility] Systolic Blood Pressure 112 mm[Hg] 06/08/2023 18:11:00 [facility] Diastolic Blood Pressure 69 mm[Hg] 06/08/2023 18:11:00 [facility] Systolic Blood Pressure 124 mm[Hg] 11/27/2023 15:48:00 [facility] Diastolic Blood Pressure 78 mm[Hg] 11/27/2023 15:48:00 [facility] Blood Pressure Manual Automatic 11/27/2023 15:48:00 [facility] BP Site Left arm 11/27/2023 15:48:00 [facility] Peripheral Pulse Rate 97 bpm 11/27/2023 15:48:00 [facility] Mean Arterial Pressure, Calc 93 mm[Hg] 11/27/2023 15:48:00 [facility] Respiratory Rate 16 br/min 11/27/2023 15:48:00 [facility] Temperature Oral 36.9 Jonna 11/27/2023 15:48:00 [facility] Respiratory Rate 16 br/min 11/14/2023 15:39:00 [facility] Blood Pressure Manual Automatic 11/14/2023 15:39:00 [facility] BP Site Left arm 11/14/2023 15:39:00 [facility] Peripheral Pulse Rate 98 bpm 11/14/2023 15:39:00 [facility] Systolic Blood Pressure 111 mm[Hg] 11/14/2023 15:39:00 [facility] Diastolic Blood Pressure 75 mm[Hg] 11/14/2023 15:39:00 [facility] Mean Arterial Pressure, Calc 87 mm[Hg] 11/14/2023 15:39:00 [facility] Encounters Combined list of: 1) Encounters from [facility] facilities going backup to the last 18 months, not all VA inpatient encounters are included; 2) Encounters from the Department of [facility] facilities going backup to 280 months. Location Location Details Encounter Type Encounter Number Reason For Visit Attending Provider ADM Date DC Date Status Disposition Source [address] [place] [address])([facility] Non[facility]) OUTPATIENT [id number] left sided jaw pain/di fficult y opening mouth x 24 hours ED FLOWERS 12/18 Released w/o Limitations [address] [place] [address])([facility] e Non-GME [facility]1) [address] [place] [address])([facility] rosie Practice Non-GME FHI1) TELE CONSULT [id number] call back - BESSIE Villaseñor 09/[address] [place] [address])([facility] Pract[facility] e Non-GME FHI1) [address] [place] [address])([facility] Non-[facility]) OUTPATIENT [id number] it is time for checkup MERYL GAITAN 09/17 Released w/o Limitations [address] [place] [address])([facility] am[facility] Practic e Non-GME FHI1) [address] [place] [address])([facility] rosie Practice Non-GME FHI1) TELE CONSULT [id number] results - CRISTINA Alaniz 09/[address] [place] [address])([facility] Pract[facility] e Non-GME FHI1) [address] [place] [address])([facility] rosie Practice Non-GME FHI1) OUTPATIENT [id number] discuss control MERYL GAITAN 12/10 Released w/o Limitations [address] [place] [address])([facility] Pract[facility] e Non-GME FHI1) [address] [place] [address])([facility] Non-GME [facility]1) OUTPATIENT [id number] Depo shot-CLARKE Butt 03/03 Released w/o Limitations [address] [place] [address] [facility])(F amily Practic e Non-GME FHI1) [address] [place] [address] [facility])(Sco tt Internal Medicine Tm) OUTPATIENT [id number] sinus infecti on (xbooke d from [facility]) [phone] DARA PETERS 03/14 Released w/o Limitations [address] [place] [address] [facility])(S cott Interna l Medicin e Tm) [address] [place] [address] [facility])([facility] Non-GME F[facility]1) OUTPATIENT [id number] depo shot- STEPHENIE Stover 05/19 Released w/o Limitations [address] [place] [address] [facility])(F amily Practic e Non-GME FHI1) [address] [place] [address])([facility] Non-GME [facility]1) OUTPATIENT [id number] NECK SHOULDE R PAIN/CA R ACCIDEN T SATURDA Y/DID NOT GO TO ER LAYNE ORTIZ 05/27 Released w/o Limitations [address] [place] [address] [facility])(F amily Practic e Non-GME FHI1) [address] [place] [address] [facility])([facility] Non-GME FHI2) TELE CONSULT [id number] call back/az tysonoeSUKH Vazquez 05/[address] [place] [address] [facility])(F amily Practic e Non-GME FHI2) [address] [place] [address] [facility])([facility] rosie Practice Non-GME FHI1) OUTPATIENT [id number] f/u neck pain/po ss med change DONYA AGUIRRE 06/03 Released w/o Limitations [address] [place] [address])(F amily Practic e Non-GME FHI1) [address] [place] [address] [facility])([facility] rosie Practice Non-GME FHI1) OUTPATIENT [id number] f/u BP DONYA AGUIRRE 06/11 Released w/o Limitations [employer] [place] [place] [place] Pract[facility] [place] Non-[facility]ME FHI1) [employer] [place] [place]Phy sical Therapy) OUTPATIENT [id number] [place] RUYLAZARUS SHANNON DAVIE JUANA 06/11 Released w/o Limitations [employer] [place] [place]P hysical [place] [employer] [place] [place]Occ upational Therapy) OUTPATIENT [id number] WILLIE ALMONTE 06/17 Released w/o Limitations [employer] [place] [place]O ccupati onal Therapy [place] [employer] [place] [place]Occ upational [place]) OUTPATIENT [id number] RUFINO PROCTOR 06/24 Released w/o Limitations [employer] [place] [place]O ccupati onal Therapy ) [employer] [place] [place]Educational Programming Director ecology) OUTPATIENT [id number] DIABETE S MELLITU SHAYLA SAM 06/25 Released w/o Limitations [employer] [place] [place]G ynecolo gy[place] [employer] [place] [place]Opt ometry) OUTPATIENT [id number] DIABETE S DALILAITU DONNY BEASLEY 07/07 Released w/o Limitations [employer] [place] [place]O ptometr y[place] [employer] [place] [place]Occ upational Therapy) OUTPATIENT [id number] RUFINO PROCTOR 07/07 Released w/o Limitations [employer] [place] [place]O ccupati onal Therapy ) [employer] [place] [place]Fam rosie Practice Non-GME FHI1) OUTPATIENT [id number] diabeti c f/u DONYA AGUIRRE 07/07 Released w/o Limitations [employer] ([facility]F amily Practic e Non-GME FHI1) [employer] ([facility]Occ upational Therapy) OUTPATIENT [id number] WILLIE ALMONTE 07/09 Released w/o Limitations [employer] ([facility]O ccupati onal Therapy ) [employer] ([facility]Occ upational Therapy) OUTPATIENT [id number] RUFINO PROCOTR Loren 07/11 Released w/o Limitations [address] [place] [address] [employer] [facility])(O ccupati onal Therapy ) [address] [place] [address] [employer] [facility])(Occ upational Therapy) OUTPATIENT [id number] RUFINO PROCTOR 07/14 Released w/o Limitations [address] [place] [address] [employer] ([facility]O ccupati onal Therapy ) [address] [place] [address] [employer] B [facility])(Phy sical Therapy) OUTPATIENT [id number] DAVIE ORTEGA 07/23 Released w/o Limitations [address] [place] [address] [employer] ([facility]P hysical Therapy ) [address] [place] [address] [employer] [facility])(Educational Programming Director ecology) TELE CONSULT [id number] results SHAYLA HEAD 07/[address] [place] [address] [employer] [facility])(G ynecokathleen gy) [address] [place] [address] [employer] [facility])(Educational Programming Director ecology) OUTPATIENT [id number] discuss bc per ltcol SHAYAL Marino 07/29 Released w/o Limitations [address] [place] [address] [employer] [facility])(G ynecokathleen gy) [address] [place] [address] [employer] [facility])(Fam [facility] Practice Non-GME FHI1) TELE CONSULT [id number] Pt. needs a refill SUKH LOMELI 07/[address] [place] [address] [employer] [facility])(F amily Practic e Non-GME FHI1) [address] [place] [address] [employer] [facility])([facility] Non-GME FHI1) OUTPATIENT [id number] f/u HTN/D and med refills DONYA AGUIRRE 08/20 Released w/o Limitations [address] [place] [address] [employer] [facility])(F amily Practic e Non-GME FHI1) [address] [place] [address] [employer] [facility] [facility])([facility] Non-GME FHI1) TELE CONSULT [id number] Rx Refill - EDGING CATCHER FIDENCIO Hays 09/[address] [place] [address] [employer] [facility])(F amily Practic e Non-GME FHI1) [facility] [employer] ([facility])(Educational Programming Director ecology) OUTPATIENT [id number] annual [phone] SHAYLA HEAD 10/10 Released w/o Limitations [employer] ([facility]G ynecokathleen gy) [address] [place] [address] [employer] [facility])([facility] Team 3) TELE CONSULT [id number] Schloer /wants lab results from today./ [phone]//nem DONYA AGUIRRE 10/[address] [place] [address] [employer] ([facility] Team 3) [address] [place] [address] [employer] [facility])([facility] Team 3) TELE CONSULT [id number] call back lab results SUKH LOMELI 10/[address] [place] [address] [employer] [facility])([facility] Team 3) [address] [place] [address] [employer] [facility])([facility] Team 3) OUTPATIENT [id number] Joint and muscle pain, [phone] LAYNE ORTIZ 11/06 Released w/o Limitations [facility] [employer] ([facility] Team 3) [facility] [employer] [facility])([facility] Team 3) OUTPATIENT [id number] audrey/anne marie doll abs [phone] DONYA AGUIRRE 11/14 Released w/o Limitations [address] [place] [address] [employer] ([facility] Team 3) [facility] [employer] [facility])([facility] Team 3) TELE CONSULT [id number] Schloer /Med Refills SARAH ALCARAZ 01/[address] [place] [address] [employer] [facility] Team 3) [facility] [employer] [facility])([facility] Team 3) TELE CONSULT [id number] lab work HORACE TAYLOR 03/[address] [place] [address] [employer] ([facility] Team 3) [facility] [employer] [facility])([facility] Team 3) OUTPATIENT [id number] f/u for diabete s - [phone] DONYA AGUIRRE 04/17 Released w/o Limitations [employer] ([facility]S cott [facility] Team 3) [facility] [employer] ([facility])(Educational Programming Director ecology) OUTPATIENT [id number] annual wwe SHAYLA HEAD 09/30 Released w/o Limitations [employer] ([facility]G ynecolo gy) [facility] [employer] ([facility]Oho tt [facility] Team 3) OUTPATIENT [id number] fol diabete s [phone] DONYA AGUIRRE 10/06 Released w/o Limitations [facility] [employer] ([facility]S cott [facility] Team 3) [facility] [employer] ([facility]Opt ometry) OUTPATIENT [id number] DIABETE S MELLITU DONNY BEASLEY 10/30 Released w/o Limitations [facility] [employer] ([facility]O ptometr y) [facility] [employer] ([facility]Oho tt [facility] Team 3) TELE CONSULT [id number] Anti-Ma HORACE Quintero 11/30 [facility] [employer] ([facility]S [facility] Team 3) [facility] [employer] ([facility] Team 3) TELE CONSULT [id number] travel medicat DONYA Billings 12/02 [facility] [employer] ([facility]S [facility] Team 3) [facility] [employer] ([facility] Team 3) TELE CONSULT [id number] med refill- HORACE Germain 01/07 [facility] [employer] ([facility]S [facility] Team 3[facility] [employer] ([facility] Team 3) TELE CONSULT [id number] Pt states she needs labs ordered beforeh er appt on [email or web address] and Rx renewed now KE RODRIGEZ 06/28 Referred for Appointment [facility] [employer] ([facility]S [facility] Team 3) [facility] [employer] ([facility] Team 3[facility] OUTPATIENT [id number] f/u diabete s [phone] DONYA AGUIRRE 07/06 Released w/o Limitations [employer] [facility] ([facility]S cott [facility] Team 3) [address] [place] [address] [employer] [facility] ([facility]Oho tt [facility] Team 3) TELE CONSULT [id number] lab results YASSINE PENNINGTON 07/07 Referred for Appointment [employer] [facility] ([facility]S cott [facility] Team 3) [address] [place] [address] [employer] [facility] ([facility])(Sco tt Disease Managemen t) TELE CONSULT [id number] DM patient due for Diabeti c Eye Exam and well women exam [phone] HORACE TAYLOR 11/[address] [place] [address] Group [employer] [facility] ([facility]S cott Disease Managem ent) [address] [place] [address] [employer] [facility] ([facility]Opt ometry) OUTPATIENT [id number] diabeti c eye exam GABRIELA KIMBROUGH 11/11 Released w/o Limitations [facility] [employer] [facility] ([facility]O ptometr y) [facility] [employer] [facility] ([facility])(Educational Programming Director ecology) OUTPATIENT [id number] well women exam KELLEY TAMAYO F 11/15 Released w/o Limitations [facility] [employer] [facility] ([facility])(G ynecolo gy) [address] [place] [address] [employer] [facility] ([facility]Sco tt [facility] Team 3) OUTPATIENT [id number] high BP 178/90 DONYA AGUIRRE 11/15 Released w/o Limitations [facility] [employer] [facility] ([facility]S cott [facility] Team 3[facility] [employer] [facility] ([facility]Sco tt [facility] Team 3) TELE CONSULT [id number] follow- up HORACE TAYLOR 11/16 [facility] [employer] [facility] ([facility]S cott [facility] Team 3[facility] [employer] [facility] ([facility]Oho tt [facility] Team 3) OUTPATIENT [id number] F/U ed visit on 15 Nov 2010 DONYA AGIURRE 11/23 Released w/o Limitations [employer] ([facility]S cott [facility] Team 3[facility] [employer] [facility] ([facility]Sco tt [facility] Team 3) OUTPATIENT [id number] swollen elbow [id number] EPI KEBEDE 02/28 Released w/o Limitations [address] [place] [address] [employer] ([facility] Team 3) [address] [place] [address] [employer] [facility] [facility])([facility] Team 3) TELE CONSULT [id number] lab results - [phone] 6/978-1 450 CAD [facility] PIERO MORALES R 03/[address] [place] [address] [employer] [facility] [facility])([facility] Team 3) [address] [place] [address] [employer] [facility] [facility])([facility] Team 3) TELE CONSULT [id number] follow- up PIERO MORALES R 03/[address] [place] [address] [employer] [facility])([facility] Team 3) [address] [place] [address] [employer] [facility] [facility])([facility] Team 3) OUTPATIENT [id number] Elbow pain [phone] TIMOTHY DONYA K 03/15 Released w/o Limitations [address] [place] [address] [employer] ([facility] Team 3) [address] [place] [address] [employer] [facility] [facility])(War rior Op Med Cln Tm A Ad) TELE CONSULT [id number] Orthope dic referra l YASSINE PENNINGTON 03/[address] [place] [address] [employer] [facility])(W arrior Op Med Cln Tm A Ad) [address] [place] [address] [employer] [facility] [facility])(Ob/ Educational Programming Director) TELE CONSULT [id number] f/u on mammogr am results MEETA MENDOZA 03/[address] [place] [address] [employer] ([facility])(O b/Educational Programming Director) [address] [place] [address] [employer] [facility])([facility] Team 3) TELE CONSULT [id number] rx refill to hold over til fup appt on Jun 14 [facility] [phone] [facility] HORACE TAYLOR 05/[address] [place] [address] [employer] [facility])([facility] Team 3) [address] [place] [address] [employer] [facility])([facility] FAMRES Tm Blue) OUTPATIENT [id number] FLU SHOT MICHELLE NAJERA D 06/06 Released w/o Limitations [address] [place] [address] [employer] ([facility])([facility] FAMRES Tm Blue) [address] [place] [address] [employer] [facility])([facility] Team 3) OUTPATIENT [id number] fu diabete s [phone] DONYA AGUIRRE 06/14 Released w/o Limitations [address] [place] [address] [employer] [facility])([facility] Team 3) [address] [place] [address] [employer] [facility])([facility] Team 3) TELE CONSULT [id number] Notes Entered by: YASSINE PENNINGTON 30 Sep 2011 1224 ------- ------- ------- ------- -- Keegan bro re: lab work JOE Edward 09/30 Referred for Appointment [address] [place] [address])([facility] Team 3) [address] [place] [address])([facility] Disease Managemen t) TELE CONSULT [id number] Notes Entered by: JOE MCKEON 02 Nov 2011 1524 ------- ------- ------- ------- -- Pt is a 45 y/o pt with hx diab needing annual Dilated Retinal Eye exam. JOE MCKEON 11/01 Referred for Appointment [address] [place] [address])([facility] Disease Managem ent) [address] [place] [address])(Opt ometry) OUTPATIENT [id number] Annual Dilated Retinal Eye exam АННА BARAJAS 11/13 Released w/o Limitations [address] [place] [address])(O ptometr y) [address] [place] [address])([facility] Team 3) OUTPATIENT [id number] f/u lab results and med refills - (diab) BEATRIZ RUIZ 11/24 Released w/o Limitations [address] [place] [address])([facility] Team 3) [address] [place] [address])(Fam rosie Med Tm B Non-AD BCC) TELE CONSULT [id number] Notes Entered by: CANDACE KERR 12 Mar 2012 1425 ------- ------- ------- ------- -- Med refill from [facility]: BESSIE BARLOW 03/[address] [place] [address])(F amily Med Tm B Non-AD BCC) [address] [place] [address])([facility] Team 3) OUTPATIENT [id number] Wellwom an/last PAP in DONYA AGUIRRE 04/06 Released w/o Limitations [address] [place] [address])([facility] Team 3) [address] [place] [address])([facility] Team 3) TELE CONSULT [id number] Notes Entered by: DONYA AGUIRRE 18 Apr 2012 1611 ------- ------- ------- ------- -- Lab/rad results DONYA AGUIRRE 04/[address] [place] [address])([facility] Team 3) [address] [place] [address])(Educational Programming Director ecology) TELE CONSULT [id number] Notes Entered by: ELSI JAQUEZ 14 May 2012 1508 ------- ------- ------- ------- -- Resched amanda castilloGY N/288-5 346/cad CHRYSTAL Butler 05/[address] [place] [address])(G brayan gy) [address] [place] [address])(Educational Programming Director ecology) OUTPATIENT [id number] Mirena IUD inserti on ED BARAJAS Tavo 06/11 Released w/o Limitations [address] [place] [address])(G ykristancokathleen gy) [address] [place] [address])([facility] Team 3) TELE CONSULT [id number] Notes Entered by: АННА FELDMAN 13 Jun 2012 1005 ------- ------- ------- ------- -- Refrral for F/U COURT REPORTER Dr Aguirre ph [phone] JEO MCKEON 06/13 Referred for Appointment [address] [place] [address])([facility] Team 3) [address] [place] [address])(Educational Programming Director ecology) TELE CONSULT [id number] Notes Entered by: АННА FELDMAN 13 Jun 2012 1007 ------- ------- ------- ------- -- Call back to discuss procedu re that was done this week ph [phone] CHRYSTAL LANGSTON 06/[address] [place] [address])(Maria De Jesus chávez) [address] [place] [address])(Sco tt [facility] Team 3) OUTPATIENT [id number] T2 Diab annual lab review - med refills DONYA AGUIRRE 06/21 Released w/o Limitations [address] [place] [address])([facility] Team 3) [address] [place] [address])([facility] Team 3) TELE CONSULT [id number] Notes Entered by: ELSI JAQUEZ 09 Jul 2012 1306 ------- ------- ------- ------- -- Diabeti c medicat ion change/ [phone] JOE MCKEON 07/09 Referred for Appointment [address] [place] [address])([facility] Team 3) [address] [place] [address])(War rior Op Med Cln Tm A Ad) TELE CONSULT [id number] Notes Entered by: EMRE MATAMOROS 10 Jul 2012 1515 ------- ------- ------- ------- -- Network Results - ENDOCRI NOLOGY 2 DONYA AGUIRRE 07/[address] [place] [address])(W arrior Op Med Cln Tm A Ad) [address] [place] [address])(Educational Programming Director ecology) OUTPATIENT [id number] f/u claudette/ [id number] ED BARAJAS 07/11 Released w/o Limitations [address] [place] [address])(Maria De Jesus sanchezcolo gy) [address] [place] [address])([facility] tt Disease Managemen t) TELE CONSULT [id number] Notes Entered by: KIKO DAMICO 14 Nov 2012 1140 ------- ------- ------- ------- -- DM MCKINLEY DAMICO I 11/[address] [place] [address])([facility] Disease Manage ent) [address] [place] [address])([facility] Team 3) TELE CONSULT [id number] Notes Entered by: RADHA RODRIGUEZ 19 Nov 2012 0856 ------- ------- ------- ------- -- Lab request - Timothy - [id number] CANDACE KERR 11/[address] [place] [address])([facility] Team 3) [address] [place] [address])([facility] Team 3) TELE CONSULT [id number] Notes Entered by: DONYA AGUIRRE 23 Nov 2012 1535 ------- ------- ------- ------- -- lab results DONYA AGUIRRE 11/[address] [place] [address])([facility] Team 3) [address] [place] [address])([facility] Team 3) TELE CONSULT [id number] Notes Entered by: DONYA AGUIRRE 04 Dec 2012 1636 ------- ------- ------- ------- -- lab results CRISTINA CACERES 12/04 Referred for Appointment [address] [place] [address])([facility] Team 3) [address] [place] [address])([facility] Disease Managemen t) TELE CONSULT [id number] Notes Entered by: KIKO DAMICO 11 Feb 2013 0823 ------- ------- ------- ------- -- Labs and retinal exam over-MCKINLEY Kitchen I 02/[address] [place] [address] [facility])(Star [facility]ina Disease Manage ent) [address] [place] [address] [employer])(Oho tt [facility] Team 3) TELE CONSULT [id number] Notes Entered by: DONYA AGUIRRE 19 Feb 2013 1506 ------- ------- ------- ------- -- lab results MCKINLEY DAMICO I 02/[address] [place] [address])(Star ghosh [facility] Team 3) [address] [place] [address])(David rior Op Med Cln Tm A Ad) TELE CONSULT [id number] Notes Entered by: HI PATEL 23 May 2013 0852 ------- ------- ------- ------- -- Network results - Optomet ry - 3 DONYA AGUIRRE 05/[address] [place] [address])(W arrior Op Med Cln Tm A Ad) [address] [place] [address])(Oho tt [facility] Team 3) TELE CONSULT [id number] Notes Entered by: CRISTINA CACERES 04 Jun 2013 0657 ------- ------- ------- ------- -- [employer] Office Message YASSINE PENNINGTON 06/[address] [place] [address])(Star davina [facility] Team 3) [address] [place] [address])(Educational Programming Director ecology) TELE CONSULT [id number] Notes Entered by: JOHANN FUENTES 22 Jul 2013 0706 ------- ------- ------- ------- -- Mirena falling fpb960- [phone] JEFERSON SAHNI 07/[address] [place] [address])(Maria De Jesus yenrique gy) [address] [place] [address])(Educational Programming Director ecology) OUTPATIENT [id number] Mirena removal t-618.2 88.5346 ED BARAJAS 07/22 Released w/o Limitations [address] [place] [address] [employer] [facility])(G ykristancolo gy) [address] [place] [address] [employer] [facility])(Oho [facility] Team 3) OUTPATIENT [id number] Diabeti c check up BEATRIZ RUIZ 09/26 Released w/o Limitations [address] [place] [address] [employer] [facility])(S davina [facility] Team 3) [address] [place] [address] [employer] [facility])(Oho tt [facility] Fam Res Tm Gold) OUTPATIENT [id number] f/u diabeti c KRISTEL LUJAN 06/16 Released w/o Limitations [address] [place] [address] [employer] [facility])(S [facility] Fam Res Tm Gold) [address] [place] [address] [facility])(Oho tt Disease Managemen t) TELE CONSULT [id number] Notes Entered by: MELISA NEVES 14 Jul 2014 1052 ------- ------- ------- ------- -- [facility] (stephanie team) KENYA NEVES 07/[address] [place] [address] N[place]to MATILDAChacho [facility])([facility] Disease Managem ent) [address] [place] [address] [employer] [facility])([facility] Fam Res Tm Green) TELE CONSULT [id number] Notes Entered by: HI PATEL 17 Oct 2014 1348 ------- ------- ------- ------- -- Network results Optomet ry 5 KRISTEL LUJAN 10/[address] [place] [address] [employer] [facility])(S [facility] Fam Res Tm Green) [address] [place] [address] [facility])([facility] Fam Res Tm Gold) TELE CONSULT [id number] Notes Entered by: RED PEREZ 13 Apr 2015 1122 ------- ------- ------- ------- -- Lab Request /Choco [id number] FERNANDA BONE 04/13 Referred for Appointment [address] [place] [address] Group [facility])(S [facility] Fam Res Tm Gold) [address] [place] [address] [facility])(Sco [facility] Fam Res Tm Red) TELE CONSULT [id number] Notes Entered by: NHUNG CELAYA 13 May 2015 1341 ------- ------- ------- ------- -- KENYA Lozano 05/[address] [place] [address] N[facility])(S [facility] Fam Res Tm Red) [address] [place] [address] Group N[facility]berto [facility])(Oho [facility] Fam Res Tm Gold) OUTPATIENT [id number] diabeti c f/u [phone] CASIMIRO WELLS 06/05 Released w/o Limitations [address] [place] [address])([facility] Fam Res Tm Gold) [address] [place] [address])(Med ication Refill Clinic) TELE CONSULT [id number] Notes Entered by: Meghan MARTINEZ 20 Nov 2015 0807 ------- ------- ------- ------- -- Alcides lewis /Davie/Javier [phone] almost out of TOPHER Osuna 11/[address] [place] [address] Nolberto [facility])(Sravanthi romero on Refill Clinic) [address] [place] [address] Nolberto [facility])(Oho tt [facility] Fam Res Tm [facility]) TELE CONSULT [id number] Notes Entered by: Meghan MARTINEZ 20 Nov 2015 0810 ------- ------- ------- ------- -- Patient wants to talk with nurse/D bisi/[phone] FERNANDA BONE 11/19 Referred for Appointment [address] [place] [address] Group Nolberto [facility])([facility] Fam Res Tm Gold) [address] [place] [address] Nolberto [facility])(Sco tt Disease Managemen t) TELE CONSULT [id number] Notes Entered by: MELISA NEVES 07 Dec 2015 1726 ------- ------- ------- ------- -- [facility] KENYA Campos 12/[address] [place] [address] Nolberto [facility])(S cott Disease Manage ent) [address] [place] [address])([facility] Fam Res Tm Gold) OUTPATIENT [id number] fu medicat ion [phone] RUSSELLSAMEERAnne Marie Jang 12/14 Released w/o Limitations [address] [place] [address] N[facility]to [facility])(S [facility] Fam Res Tm Gold) [address] [place] [address])([facility] Internal Medicine ) TELE CONSULT [id number] Notes Entered by: BEE DE LA PAZ 08 Mar 2016 0834 ------- ------- ------- ------- -- Network Results [facility]07[facility] [place] [address] Nolberto [facility])(S cott Interna l Medicin e Tm) [address] [place] [address])([facility] Internal Medicine ) TELE CONSULT [id number] Notes Entered by: BEE DE LA PAZ 14 Mar 2016 1014 ------- ------- ------- ------- -- Network Results OPTOMET RY 03/07/16 [facility] [place] [address])(S cott Interna l Medicin e Tm) [address] [place] [address])([facility] Internal Medicine ) TELE CONSULT [id number] Notes Entered by: Haley WEBSTER 16 Mar 2016 1151 ------- ------- ------- ------- -- Med [facility] / Nader / MARIELA Harvey 03/[address] [place] [address])(S cott Interna l Medicin e Tm) [address] [place] [address])([facility] Internal Medicine Tm) TELE CONSULT [id number] Notes Entered by: RED PEREZ 04 Apr 2016 1520 ------- ------- ------- ------- -- Lab Request /Miguel dugan/288.5 346 MARIELA BRITT 04/[address] [place] [address])(S cott Interna l Medicin e Tm) [address] [place] [address])([facility] Internal Medicine Tm) TELE CONSULT [id number] Notes Entered by: ABISAI STRONG 06 Apr 2016 1230 ------- ------- ------- ------- -- Abnorma l lab results MARIELA BRITT 04/[address] [place] [address])(S cott Interna l Medicin e Tm) [address] [place] [address])([facility] Internal Medicine Tm) OUTPATIENT [id number] Physica l [phone] ABISAI STRONG 04/06 Released w/o Limitations [address] [place] [address])(S cott Interna l Medicin e Tm) [address] [place] [address])([facility] Internal Medicine Tm) TELE CONSULT [id number] Notes Entered by: Maria De Jesus CARCAMO 27 Jun 2016 1016 ------- ------- ------- ------- -- Jessica rodriguez/ JOSIAS Hernadez 06/27 Referred for Appointment [address] [place] [address])(S cott Interna l Medicin e Tm) [address] [place] [address])([facility] Internal Medicine Tm) OUTPATIENT [id number] follow up NERY SO V 07/05 Released w/o Limitations [address] [place] [address])(S cott Interna l Medicin e Tm) [address] [place] [address])([facility] Disease Managemen t) OUTPATIENT [id number] Notes Entered by: JOE MCKEON 12 Jul 2016 1032 ------- ------- ------- ------- -- Pt to clinic for Addi [place] Inj educati on. JOE MCKEON 07/12 Released w/o Limitations [address] [place] [address])(S cott Disease Managem ent) [address] [place] [address])([facility]) TELE CONSULT [id number] Notes Entered by: AMELIE PORTER 18 Jul 2016 1021 ------- ------- ------- ------- -- To set up Nutriti on Consult for Diabete s and Renal Nutriti on AMELIE PORTER 07/[address] [place] [address])(N utritio nal Medicin e) [address] [place] [address])(Oho tt Disease Managemen t) TELE CONSULT [id number] Notes Entered by: BEE COUGHLIN 08 Sep 2016 1210 ------- ------- ------- ------- -- F/U Diabete s Eval SHRUTHI COUGHLIN 09/08 Advice Assessment [address] [place] [address])(S cott Disease Managem ent) [address] [place] [address])(Oho tt Internal Medicine Tm) OUTPATIENT [id number] renal NERY SO V 10/06 Released w/o Limitations [address] [place] [address])(S cott Interna l Medicin e Tm) [address] [place] [address])(Oho tt Disease Managemen t) TELE CONSULT [id number] Notes Entered by: JOE MCKEON 01 Nov 2016 1559 ------- ------- ------- ------- -- F/u on pt self-ca re goal JOE MCKEON 11/[address] [place] [address])(S cott Disease Managem ent) [address] [place] [address])(Oho tt Internal Medicine Tm) TELE CONSULT [id number] Notes Entered by: Maria De Jesus CARCAMO 10 Nov 2016 1522 ------- ------- ------- ------- -- Micahunter msg/ med refill (gwp) MARIELA BRITT 11/[address] [place] [address])(S cott Interna l Medicin e Tm) [address] [place] [address])([facility] Internal Medicine ) TELE CONSULT [id number] Notes Entered by: Maria De Jesus CARCAMO 23 Nov 2016 0926 ------- ------- ------- ------- -- Express scripts / med refill x 1 (gwp) MARIELA BRITT 11/[address] [place] [address])(S cott Interna l Medicin e Tm) [address] [place] [address])([facility] Internal Medicine ) OUTPATIENT [id number] Pap test NERY SO V 01/05 Released w/o Limitations [address] [place] [address])(S cott Interna l Medicin e Tm) [address] [place] [address])(Educational Programming Director ecology) OUTPATIENT [id number] Annual WWE [id number] PJ ALEXANDER 02/24 Released w/o Limitations [address] [place] [address])(G ykristancokathleen gy) [address] [place] [address])([facility] Internal Medicine ) TELE CONSULT [id number] Notes Entered by: Maria De Jesus CARCAMO 28 Feb 2017 0818 ------- ------- ------- ------- -- Express scripts / med refill (gwp) JOSIAS DELONG 02/28 Referred for Appointment [address] [place] [address])(S cott Interna l Medicin e Tm) [address] [place] [address])(Educational Programming Director ecology) TELE CONSULT [id number] Notes Entered by: RADHA TARIQ LT 15 Mar 2017 1341 ------- ------- ------- ------- -- Pap/HPV result RAMAN HAAS 03/[address] [place] [address])(G ynecolo gy) [address] [place] [address])([facility] Internal Medicine ) OUTPATIENT [id number] F/u Labs NERY SO V 04/06 Released w/o Limitations [address] [place] [address])(S cott Interna l Medicin e Tm) [address] [place] [address])([facility] Internal Medicine ) TELE CONSULT [id number] Notes Entered by: Haley GARCIA 15 Jun 2017 1146 ------- ------- ------- ------- -- Network results Occupat ional/P hysical Therapy 7 CRISTINA HERNANDEZ 06/[address] [place] [address])(S cott Interna l Medicin e Tm) [address] [place] [address])([facility] Internal Medicine ) OUTPATIENT [id number] f/u [id number] NERY SO V 06/29 Released w/o Limitations [address] [place] [address])(S cott Interna l Medicin e Tm) [address] [place] [address])([facility] Internal Medicine ) TELE CONSULT [id number] Notes Entered by: АННА FELDMAN 07 Aug 2017 1410 ------- ------- ------- ------- -- Network results Urgent Care 017 CE BOWEN 08/[address] [place] [address])(S cott Interna l Medicin e Tm) [address] [place] [address])([facility] Internal Medicine ) TELE CONSULT [id number] Notes Entered by: JACQUES YEAGER 16 Aug 2017 0951 ------- ------- ------- ------- -- Express Scripts Fax Request MARIELA BRITT 08/[address] [place], [place] [address]B ([facility])(S cott Interna l Medicin e Tm) [address] [place] [address])([facility] Internal Medicine ) OUTPATIENT [id number] Follow up NERY HEIN V 09/22 Released w/o Limitations [address] [place] [address])(S cott Interna l Medicin e Tm) [address] [place] [address])([facility] Internal Medicine ) TELE CONSULT [id number] Notes Entered by: [facility] 12 Oct 2017 1615 ------- ------- ------- ------- -- Medicat ion refill PCM Dr. Avery Phone: MARIELA BRITT 10/[address] [place] [address])(S cott Interna l Medicin e Tm) [address] [place] [address])([facility] Internal Medicine ) OUTPATIENT [id number] f/u NERY HEIN V 12/21 Released w/o Limitations [address] [place] [address])(S cott Interna l Medicin e Tm) [address] [place] [address])([facility] Internal Medicine ) TELE CONSULT [id number] Notes Entered by: JACQUES YEAGER 03 Jan 2018 1142 ------- ------- ------- ------- -- Med not working FADIA CORRIGAN 01/03 Referred for Appointment [address] [place] [address])(S cott Interna l Medicin e Tm) [address] [place] [address])([facility] Internal Medicine ) TELE CONSULT [id number] Notes Entered by: [facility] 02 Mar 2018 1500 ------- ------- ------- ------- -- Mi care med refill PCM JOSIAS Serrano 03/02 Referred for Appointment [address] [place] [address])(S cott Interna l Medicin e Tm) [address] [place] [address] Group [facility] Internal Medicine ) OUTPATIENT [id number] diabeti c concern s DEDRICK GIL 03/30 Released w/o Limitations [address] [place] [address] Group [facility] ([facility]S cott Interna l Medicin e Tm) [address] [place] [address] N[facility]berto [facility])([facility] Internal Medicine ) TELE CONSULT [id number] Notes Entered by: Maria De Jesus CARCAMO 02 Apr 2018 0859 ------- ------- ------- ------- -- Micare msg/ med refill x 1 / gwp MARIELA BRITT 04/02 Medication Refill Forwarded [address] [place] [address] N[facility]to [facility])(S cott Interna l Medicin e Tm) [address] [place] [address] [facility]to [facility])([facility] Pharm D Clinic) OUTPATIENT [id number] Diabete s follow up ESTUARDO REDDING 04/12 Released w/o Limitations [address] [place] [address] N[facility]to [facility])( [facility] Pharm D Clinic) [address] [place] [address] Nolberto B [facility])([facility] Pharm D Clinic) OUTPATIENT [id number] virtual spec 1 week blood sugar f/u call [phone] ESTUARDO REDDING 04/25 Released w/o Limitations [address] [place] [address] N[facility]to [facility])([facility] Pharm D [facility]) [address] [place] [address] N[facility]berto [facility])([facility] Internal Medicine ) TELE CONSULT [id number] Notes Entered by: Maria De Jesus CARCAMO 12 Jun 2018 0822 ------- ------- ------- ------- -- Micare msg/ med refill x 2 / gwp DONYA CALDERON 06/[address] [place] [address] Nolberto B ([facility]S cott Interna l Medicin e Tm) [address] [place] [address] [employer] ([facility] Pharm D Clinic) OUTPATIENT [id number] 0 3 month DM f/u ESTUARDO REDDING 07/09 Released w/o Limitations [address] [place] [address] Nolberto HARDING ([facility]I [facility] Pharm [facility]) [address] [place] [address] Group Nolberto MATILDAChacho [facility])([facility] Pharm D Clinic) OUTPATIENT [id number] Notes Entered by: Viji TORRES N 30 Jul 2018 1331 ------- ------- ------- ------- -- Lab follow- up ESTUARDO REDDING 07/30 Released w/o Limitations [address] [place] [address] Nolberto HARDING ([facility] Pharm [facility]) [address] [place] [address] Nolberto HARDING [facility])([facility] Internal Medicine ) TELE CONSULT [id number] Notes Entered by: Maria De Jesus CARCAMO 04 Sep 2018 0925 ------- ------- ------- ------- -- Micare msg/ med refill / madhurip ANA MCMILLAN 09/04 Released to Self Care [address] [place] [address] Nolberto HARDING ([facility]S cott Interna l Medicin e Tm) [address] [place] [address] Nolberto HARDING [facility])([facility] Internal Medicine ) TELE CONSULT [id number] Notes Entered by: Maria De Jesus CARCAMO 17 Sep 2018 0934 ------- ------- ------- ------- -- Micare msg/ Prescri ption / gwp ANA MCMILLAN 09/17 Medication Refill Forwarded [address] [place] [address] Nolberto HARDING ([facility]S cott Interna l Medicin e Tm) [address] [place] [address] Nolberto HARDING [facility])([facility] Pharm D Clinic) OUTPATIENT [id number] 2 3 month DM f/u ESTUARDO REDDING N 10/12 Released w/o Limitations [address] [place] [address] Group N[facility]to MATILDAChacho ([facility]I [facility] Pharm [facility]) [address] [place] [address] Nolberto MATILDAChacho ([facility] Pharm D Clinic) OUTPATIENT [id number] 9 4 WEEK DM F/U ESTUARDO REDDING N 11/29 Released w/o Limitations [address] [place] [address] Group N[facility]to MATILDAChacho ([facility]I [facility] Pharm [facility]) [address] [place] [address] Nolberto HARDING ([facility] Pharm D Clinic) OUTPATIENT [id number] Notes Entered by: TJ REDDING N 10 Dec 2018 1534 ------- ------- ------- ------- -- Stepped on a nail ESTUARDO REDDING 12/10 Released w/o Limitations Medical [employer] ([facility]I [facility]) [address] [place] [address] [employer] ([facility])(Oho tt Internal Medicine Tm) OUTPATIENT [id number] 7 R Foot Pain after injury LOUISE DEDRICK A 12/11 Released w/o Limitations [facility] Group [employer] ([facility])(S cott Interna l Medicin e Tm) [address] [place] [address] [employer] ([facility] Pharm D Clinic) OUTPATIENT [id number] 8 3 MONTH DM F/U ESTUARDO REDDING 01/08 Released w/o Limitations [address] [place] [address] [employer] ([facility]I [facility] Pharm [facility]) [facility] [employer] ([facility] Pharm D Clinic) OUTPATIENT [id number] Notes Entered by: TJ REDDING 24 Jan 2019 1508 ------- ------- ------- ------- -- Blood Glucose f/u ESTUARDO REDDING 01/24 Released w/o Limitations [facility] [employer] ([facility]I [facility]) [address] [place] [address] [employer] ([facility]C Pharm D Clinic) OUTPATIENT [id number] 0 3 MONTH DM F/U ESTUARDO REDDING 04/11 Released w/o Limitations [address] [place] [address] [employer] ([facility]I [facility] Pharm [facility]) [facility] [employer] ([facility]C Pharm D Clinic) OUTPATIENT [id number] 9 3 MONTH DM F/U ESTUARDO REDDING 07/10 Released w/o Limitations [address] [place] [address] [employer] ([facility]I [facility] Pharm [facility]) [facility] [employer] ([facility]C Pharm D Clinic) OUTPATIENT [id number] 4 3 MONTH DM F/U ESTUARDO REDDING 10/01 Released w/o Limitations [address] [place] [address] Group Nolberto GREYB ([facility]I [facility] Pharm [facility]) [facility] Medical [facility]to [facility] Pharm D Clinic) OUTPATIENT [id number] 1 VIRTUAL 3 MONTH DM F/U ESTUARDO REDDING 12/26 Released w/o Limitations [address] [place] [address] Nolberto GREYB ([facility]I [facility] Pharm [facility]) [address] [place] [address] Nolberto [facility])([facility] Internal Medicine ) TELE CONSULT [id number] Notes Entered by: JACQUES YEAGER 28 Feb 2020 0741 ------- ------- ------- ------- -- [facility]- MARIELA Richardson 02/27 Medication Refill Forwarded [address] [place] [address] Nolberto GREYB ([facility]S cott Interna l Medicin e Tm) [address] [place] [address] Nolberto GREY ([facility] Internal Medicine ) OUTPATIENT [id number] [id number] check up, PCM:Sravanthi BARAJAS MARIAH D 03/09 Released w/o Limitations [address] [place] [address] Group N[facility]to [facility] ([facility])(S cott Interna l Medicin e Tm) [address] [place] [address] Group Nolberto GREYB [facility])([facility] Pharm D Clinic) OUTPATIENT [id number] Notes Entered by: TJ REDDING 10 Mar 2020 1236 ------- ------- ------- ------- -- DM F/U ESTUARDO REDDING 03/10 Released w/o Limitations [address] [place] [address] Group Nolberto GREY[facility] ([facility]I [facility] Pharm [facility]) [address] [place] [address] Group [facility]to [facility] Pharm D Clinic) OUTPATIENT [id number] 5 virtual 3 mo D/M ph# [phone] ESTUARDO REDDING 06/29 Released w/o Limitations [address] [place] [address] Group N[facility]to [facility] ([facility]I [facility] Pharm D [facility]) [address] [place] [address] [employer] ([facility] Pharm D Clinic) OUTPATIENT [id number] 1 VIRTUAL 3 MONTH DM F/U ESTUARDO REDDING 10/02 Released w/o Limitations [facility] Group N[facility]berto [facility] ([facility] Pharm D [facility]) [facility] Group [facility]to [facility] Pharm D [facility]) OUTPATIENT [id number] 9 VIRTUAL 3 MONTH DM F/U ESTUARDO REDDING 12/25 Released w/o Limitations [address] [place] [address] Group N[facility]berto GREY[facility] ([facility] Pharm D [facility]) [address] [place] [address] Nolberto GREYB ([facility])([facility] Internal Medicine ) OUTPATIENT [id number] 3 VIRTUAL 3 MONTH DM F/U JUAN ANA D 04/06 Released w/o Limitations [address] [place] [address] Group N[facility]berto [facility] ([facility])(S cott Interna l Medicin e Tm) [address] [place] [address] Group N[facility]to [facility] ([facility] Pharm D [facility]) OUTPATIENT [id number] 1 VIRTUAL 3 MONTH DM F/U ESTUARDO REDDING 06/30 Released w/o Limitations [address] [place] [address] Group N[facility]berto GREYB ([facility] Pharm D [facility]) [address] [place] [address] Nolberto GREYB [facility])([facility] Internal Medicine ) TELE CONSULT [id number] Notes Entered by: TJ REDDING 16 Dec 2021 120 ------- ------- ------- ------- -- Needs KIRILL Lorenz 12/16 Referred for Appointment [address] [place] [address] Nolberto MATILDAB [facility])(S cott Interna l Medicin e Tm) [address] [place] [address] Nolberto GREYB [facility])([facility] Pharm D [facility]) OUTPATIENT [id number] 1 VIRTUAL DM follow up ESTUARDO REDDING 01/06 Released w/o Limitations [address] [place] [address] Nolberto GREYB ([facility] Pharm D [facility]) [address] [place] [address] Nolberto MATILDAB [facility] Internal Medicine ) TELE CONSULT [id number] Notes Entered by: JACQUES SALEH 16 Aug 2022 1423 ------- ------- ------- ------- -- [facility]- RX renewed and labs MACY CR 08/16 Medication Refill Forwarded [address] [place] [address] Nolberto [facility])(S cott Interna l Medicin e Tm) [address] [place] [address] Nolberto [facility])([facility] Pharm D Clinic) OUTPATIENT [id number] f2f dm f/u pt has annual appt 13 sep 2022 ESTUARDO REDDING 08/29 Released w/o Limitations [address] [place] [address] N[facility]to [facility])([facility] Pharm D [facility]) [address] [place] [address] Nolberto [facility])([facility] Internal Medicine ) OUTPATIENT [id number] F2f Annual and labs med renewal DM foot exam INEZ CLEMENTE 09/08 Released w/o Limitations [address] [place] [address] Nolberto [facility])(S cott Interna l Medicin e Tm) [address] [place] [address] Nolberto [facility])([facility] Internal Medicine ) TELE CONSULT [id number] Notes Entered by: WILFREDO DUNN 18 Oct 2022 1341 ------- ------- ------- ------- -- Optjudith Vicente l Request / Chyna / JANET COLBY 10/18 Other Not Elsewhere Classified [address] [place] [address] Nolberto [facility])(S cott Interna l Medicin e Tm) [address] [place] [address] Nolberto [facility])([facility] Internal Medicine ) TELE CONSULT [id number] Notes Entered by: Maria De Jesus CARCAMO 06 Jan 2023 1011 ------- ------- ------- ------- -- PLEASE REVIEW PROVIDE R RESULTS IN HAIINEZ GARCIA 01/[address] [place] [address] Nolberto 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 08/28 Discharge Disposition: Home or Self Care 5C-3 75th [facility] N[place]to 5C-375 th [facility] er[facility] Between Visit [id number] 09/10 Discharge Disposition: Home or Self Care 5C-3 [facility] Nolberto 5C-375 th [facility] [id number] 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 Procedure Procedure Type Code Date Perfomer Comments Sourc e EPISIOTOMY 993 [facility] OTHER DIAGNOSTIC PROCEDURES ON FETUS AND AMNION 993 [facility] EKG (SCALP) 993 [facility] TELE ASSESS & MGT SRV PROV QUAL NONPHYS HLTH CARE PRO TO EST PAT,PARENT,GUARD NOT ORIG REL ASSESS & MGT SRV PROV W/IN PREV 7 DAYS NOR LEAD ASSESS & MGT SRV/PX W/IN NXT 24H/SOON APT; 11-20 MIN MED DIS 023 [facility] FOOT EXAMINATION PERFORMED (INCLUDES EXAMINATION THROUGH VISUAL INSPECTION, SENSORY EXAM WITH MONOFILAMENT, AND PULSE EXAM - REPORT WHEN ANY OF THE 3 COMPONENTS ARE COMPLETED) (DM) 023 DoD MEDICATION THERAPY MGT SERVICE(S) PROVIDED,A PHARMACIST,INDIV,FACE-T O-FACE W PATIENT,WITH ASSESS & INTERVENE IF PROVIDED;EA ADDITION 15 MINUTES (LIST SEPARATELY IN ADDITION TO CODE FOR PRIM SERVICE) [facility] TELE ASSESS & MGT SRV PROV QUAL NONPHYS HLTH CARE PRO TO EST PAT,PARENT,GUARD NOT ORIG REL ASSESS & MGT SRV PROV W/IN PREV 7 DAYS NOR LEAD ASSESS & MGT SRV/PX W/IN NXT 24H/SOON APT; 11-20 MIN MED DIS DoD WAIVER SERVICES; NOT OTHERWISE SPECIFIED (NOS) [facility] WAIVER SERVICES; NOT OTHERWISE SPECIFIED (NOS) [facility] WA[facility] SERVICES; NOT OTHERWISE SPECIFIED (NOS) [facility]; NOT OTHERWISE SPECIFIED (NOS) [facility]; NOT OTHERWISE SPECIFIED (NOS) [facility]; NOT OTHERWISE SPECIFIED (NOS) [facility] WA[facility] SERVICES; NOT OTHERWISE SPECIFIED (NOS) DoD WAIVER SERVICES; NOT OTHERWISE SPECIFIED (NOS) [facility] ONLINE ASSESS &MANAG SERV PROVIDE,A QUAL NONPHYS HCP TO AN ESTABLISHED PAT/GUARDIAN,NOT ORIGINAT FRM RELAT ASSESS &MANAG SERV PROVIDE W/IN THE PREV 7 DAYS,USE THE [employer] [facility] ONLINE ASSESS &MANAG SERV PROVIDE,A QUAL NONPHYS HCP TO AN ESTABLISHED PAT/GUARDIAN,NOT ORIGINAT FRM RELAT ASSESS &MANAG SERV PROVIDE W/IN THE PREV 7 DAYS,USE THE [employer] [facility] [facility]WORK [facility] MEDICATION THERAPY MGT SERVICE(S) PROVIDED,A PHARMACISTDREA,FACE-T O-FACE W PATIENT,WITH ASSESS & INTERVENE IF PROVIDED;EA ADDITION 15 MINUTES (LIST SEPARATELY IN ADDITION TO CODE FOR PRIM SERVICE) [facility] ONLINE ASSESS &MANAG SERV PROVIDE,A QUAL NONPHYS HCP TO AN ESTABLISHED PAT/GUARDIAN,NOT ORIGINAT FRM RELAT ASSESS &MANAG SERV PROVIDE W/IN THE PREV 7 DAYS,USE THE [employer] NETWORK [facility] MEDICATION THERAPY MGT SERVICE(S) PROVIDED,A PHARMACIST,CJIV,FACE-T O-FACE W PATIENT,WITH ASSESS & INTERVENE IF PROVIDED;EA ADDITION 15 MINUTES (LIST SEPARATELY IN ADDITION TO CODE FOR PRIM SERVICE) [facility] ONLINE ASSESS &MANAG SERV PROVIDE,A QUAL NONPHYS HCP TO AN ESTABLISHED PAT/GUARDIAN,NOT ORIGINAT FRM RELAT ASSESS &MANAG SERV PROVIDE W/IN THE PREV 7 DAYS,USE THE [employer] [facility]WORK [facility] MEDICATION THERAPY MGT SERVICE(S) PROVIDED,A PHARMACIST,INDIV,FACE-T O-FACE W PATIENT,WITH ASSESS & INTERVENE IF PROVIDED;EA ADDITION 15 MINUTES (LIST SEPARATELY IN ADDITION TO CODE FOR PRIM SERVICE) [facility] MEDICATION THERAPY MGT SERVICE(S) PROVIDED,A PHARMACIST,CJIV,FACE-T O-FACE W PATIENT,WITH ASSESS & INTERVENE IF PROVIDED;EA ADDITION 15 MINUTES (LIST SEPARATELY IN ADDITION TO CODE FOR PRIM SERVICE) [facility] ONLINE ASSESS &MANAG SERV PROVIDE,A QUAL NONPHYS HCP TO AN ESTABLISHED PAT/GUARDIAN,NOT ORIGINAT FRM RELAT ASSESS &MANAG SERV PROVIDE W/IN THE PREV 7 DAYS,USE THE [employer] [facility] NETWORK [facility] MEDICATION THERAPY MGT SERVICE(S) PROVIDED,A PHARMACIST,DREA,FACE-T O-FACE W PATIENT,WITH ASSESS & INTERVENE IF PROVIDED;EA ADDITION 15 MINUTES (LIST SEPARATELY IN ADDITION TO CODE FOR PRIM SERVICE) [facility] TELE ASSESS & MGT SRV PROV QUAL NONPHYS HLTH CARE PRO TO EST PAT,PARENT,GUARD NOT ORIG REL ASSESS & MGT SRV PROV W/IN PREV 7 DAYS NOR LEAD ASSESS & MGT SRV/PX W/IN NXT 24 HR/SOON APT;5-10 MIN MED DIS [facility] ONLINE ASSESS &MANAG SERV PROVIDE,A QUAL NONPHYS HCP TO AN ESTABLISHED PAT/GUARDIAN,NOT ORIGINAT FRM RELAT ASSESS &MANAG SERV PROVIDE W/IN THE PREV 7 DAYS,USE THE [employer] NETWORK [facility] MEDICATION THERAPY MGT SERVICE(S) PROVIDED,A PHARMACIST,INDIV,FACE-T O-FACE W PATIENT,WITH ASSESS & INTERVENE IF PROVIDED;EA ADDITION 15 MINUTES (LIST SEPARATELY IN ADDITION TO CODE FOR PRIM SERVICE) [facility] ONLINE ASSESS &MANAG SERV PROVIDE,A QUAL NONPHYS HCP TO AN ESTABLISHED PAT/GUARDIAN,NOT ORIGINAT FRM RELAT ASSESS &MANAG SERV PROVIDE W/IN THE PREV 7 DAYS,USE THE INTERNET[employer] 018 DoD TELE ASSESS & MGT SRV PROV QUAL NONPHYS HLTH CARE PRO TO EST PAT,PARENT,GUARD NOT ORIG REL ASSESS & MGT SRV PROV W/IN PREV 7 DAYS NOR LEAD ASSESS & MGT SRV/PX W/IN NXT 24 HR/SOON APT;5-10 MIN MED DIS 018 DoD ONLINE ASSESS &MANAG SERV PROVIDE,A QUAL NONPHYS HCP TO AN ESTABLISHED PAT/GUARDIAN,NOT ORIGINAT FRM RELAT ASSESS &MANAG SERV PROVIDE W/IN THE PREV 7 DAYS,USE THE INTERNET[employer]WORK 018 DoD TELE ASSESS & MGT SRV PROV QUAL NONPHYS HLTH CARE PRO TO EST PAT,PARENT,GUARD NOT ORIG REL ASSESS & MGT SRV PROV W/IN PREV 7 DAYS NOR LEAD ASSESS & MGT SRV/PX W/IN NXT 24 HR/SOON APT;5-10 MIN MED DIS 017 [facility] SCREENING [employer]AP[employer]ICOLA[employer] SMEAR; OBTAINING, PREPARING AND CONVEYANCE OF CERVICAL OR VAGINAL SMEAR TO LABORATORY 017 DoD DISEASE MANAGEMENT PROGRAM, FOLLOW-UP/REASSESSMENT 017 DoD DISEASE MANAGEMENT PROGRAM, FOLLOW-UP/REASSESSMENT 017 DoD DISEASE MANAGEMENT PROGRAM; INITIAL ASSESSMENT AND INITIATION OF THE PROGRAM 016 DoD TELE ASSESS & MGT SRV PROV QUAL NONPHYS HLTH CARE PRO TO EST PAT,PARENT,GUARD NOT ORIG REL ASSESS & MGT SRV PROV W/IN PREV 7 DAYS NOR LEAD ASSESS & MGT SRV/PX W/IN NXT 24 HR/SOON APT;5-10 MIN MED DIS 016 DoD TELE ASSESS & MGT SRV PROV QUAL NONPHYS HLTH CARE PRO TO EST PAT,PARENT,GUARD NOT ORIG REL ASSESS & MGT SRV PROV W/IN PREV 7 DAYS NOR LEAD ASSESS & MGT SRV/PX W/IN NXT 24 HR/SOON APT;5-10 MIN MED DIS 016 DoD DISEASE MANAGEMENT PROGRAM, FOLLOW-UP/REASSESSMENT 016 DoD TELE ASSESS & MGT SRV PROV QUAL NONPHYS HLTH CARE PRO TO EST PAT,PARENT,GUARD NOT ORIG REL ASSESS & MGT SRV PROV W/IN PREV 7 DAYS NOR LEAD ASSESS & MGT SRV/PX W/IN NXT 24 HR/SOON APT;5-10 MIN MED DIS 016 DoD TELE ASSESS & MGT SRV PROV QUAL NONPHYS HLTH CARE PRO TO EST PAT,PARENT,GUARD NOT ORIG REL ASSESS & MGT SRV PROV W/IN PREV 7 DAYS NOR LEAD ASSESS & MGT SRV/PX W/IN NXT 24 HR/SOON APT;5-10 MIN MED DIS 016 DoD DISEASE MANAGEMENT PROGRAM, FOLLOW-UP/REASSESSMENT 015 DoD TELEPHONE CALLS BY A REGISTERED NURSE TO A DISEASE MANAGEMENT PROGRAM MEMBER FOR MONITORING PURPOSES; PER MONTH 015 DoD TELE ASSESS & MGT SRV PROV QUAL NONPHYS HLTH CARE PRO TO EST PAT,PARENT,GUARD NOT ORIG REL ASSESS & MGT SRV PROV W/IN PREV 7 DAYS NOR LEAD ASSESS & MGT SRV/PX W/IN NXT 24 HR/SOON APT;5-10 MIN MED DIS 015 DoD TELEPHONE CALLS BY A REGISTERED NURSE TO A DISEASE MANAGEMENT PROGRAM MEMBER FOR MONITORING PURPOSES; PER MONTH 014 DoD REMOVAL OF INTRAUTERINE DEVICE (IUD) 013 DoD TELE ASSESS & MGT SRV PROV QUAL NONPHYS HLTH CARE PRO TO EST PAT,PARENT,GUARD NOT ORIG REL ASSESS & MGT SRV PROV W/IN PREV 7 DAYS NOR LEAD ASSESS & MGT SRV/PX W/IN NXT 24 HR/SOON APT;5-10 MIN MED DIS 013 DoD TELE ASSESS & MGT SRV PROV QUAL NONPHYS HLTH CARE PRO TO EST PAT,PARENT,GUARD NOT ORIG REL ASSESS & MGT SRV PROV W/IN PREV 7 DAYS NOR LEAD ASSESS & MGT SRV/PX W/IN NXT 24 HR/SOON APT;5-10 MIN MED DIS 012 DoD TELE ASSESS & MGT SRV PROV QUAL NONPHYS HLTH CARE PRO TO EST PAT,PARENT,GUARD NOT ORIG REL ASSESS & MGT SRV PROV W/IN PREV 7 DAYS NOR LEAD ASSESS & MGT SRV/PX W/IN NXT 24H/SOON APT; 11-20 MIN MED DIS 012 DoD TELE ASSESS & MGT SRV PROV QUAL NONPHYS HLTH CARE PRO TO EST PAT,PARENT,GUARD NOT ORIG REL ASSESS & MGT SRV PROV W/IN PREV 7 DAYS NOR LEAD ASSESS & MGT SRV/PX W/IN NXT 24 HR/SOON APT;5-10 MIN MED DIS 012 DoD INSERTION OF INTRAUTERINE DEVICE (IUD) 012 DoD SCREENING [employer]OLA[employer] SMEAR; OBTAINING, PREPARING AND CONVEYANCE OF CERVICAL OR VAGINAL SMEAR TO LABORATORY 012 DoD TELE ASSESS & MGT SRV PROV QUAL NONPHYS HLTH CARE PRO TO EST PAT,PARENT,GUARD NOT ORIG REL ASSESS & MGT SRV PROV W/IN PREV 7 DAYS NOR LEAD ASSESS & MGT SRV/PX W/IN NXT 24H/SOON APT; 11-20 MIN MED DIS 012 DoD VISUAL FIELD EXAMINATION, UNI OR BILATERAL, WITH MEDICAL DIAGNOSTIC EVAL; INTERMEDIATE EXAM (EG, AT LEAST 2 ISOPTERS ON GOLDMANN PERIMETER, OR SEMIQUANT, AUTO SUPRATHRESHOLD SCREEN PROGRAM, BORGES 012 DoD TELE ASSESS & MGT SRV PROV QUAL NONPHYS HLTH CARE PRO TO EST PAT,PARENT,GUARD NOT ORIG REL ASSESS & MGT SRV PROV W/IN PREV 7 DAYS NOR LEAD ASSESS & MGT SRV/PX W/IN NXT 24 HR/SOON APT;5-10 MIN MED DIS 012 DoD TELE ASSESS & MGT SRV PROV QUAL NONPHYS HLTH CARE PRO TO EST PAT,PARENT,GUARD NOT ORIG REL ASSESS & MGT SRV PROV W/IN PREV 7 DAYS NOR LEAD ASSESS & MGT SRV/PX W/IN NXT 24 HR/SOON APT;5-10 MIN MED DIS 012 DoD INFLUENZA VIRUS VACCINE, TRIVALENT (IIV3), SPLIT VIRUS, 0.5 ML DOSAGE, FOR INTRAMUSCULAR USE 011 DoD TELE ASSESS & MGT SRV PROV QUAL NONPHYS HLTH CARE PRO TO EST PAT,PARENT,GUARD NOT ORIG REL ASSESS & MGT SRV PROV W/IN PREV 7 DAYS NOR LEAD ASSESS & MGT SRV/PX W/IN NXT 24 HR/SOON APT;5-10 MIN MED DIS 011 DoD TELE ASSESS & MGT SRV PROV QUAL NONPHYS HLTH CARE PRO TO EST PAT,PARENT,GUARD NOT ORIG REL ASSESS & MGT SRV PROV W/IN PREV 7 DAYS NOR LEAD ASSESS & MGT SRV/PX W/IN NXT 24 HR/SOON APT;5-10 MIN MED DIS 011 DoD DETERMINATION OF REFRACTIVE STATE 011 DoD TELE ASSESS & MGT SRV PROV QUAL NONPHYS HLTH CARE PRO TO EST PAT,PARENT,GUARD NOT ORIG REL ASSESS & MGT SRV PROV W/IN PREV 7 DAYS NOR LEAD ASSESS & MGT SRV/PX W/IN NXT 24H/SOON APT; 11-20 MIN MED DIS 011 DoD TELE ASSESS & MGT SRV PROV QUAL NONPHYS HLTH CARE PRO TO EST PAT,PARENT,GUARD NOT ORIG REL ASSESS & MGT SRV PROV W/IN PREV 7 DAYS NOR LEAD ASSESS & MGT SRV/PX W/IN NXT 24 HR/SOON APT;5-10 MIN MED DIS 010 DoD DIABETIC INDICATOR; RETINAL EYE EXAM, DILATED, BILATERAL 010 DoD TELE ASSESS & MGT SRV PROV QUAL NONPHYS HLTH CARE PRO TO EST PAT,PARENT,GUARD NOT ORIG REL ASSESS & MGT SRV PROV W/IN PREV 7 DAYS NOR LEAD ASSESS & MGT SRV/PX W/IN NXT 24 HR/SOON APT;5-10 MIN MED DIS 009 DoD SCREENING P[employer]OLA[employer] SMEAR; OBTAINING, PREPARING AND CONVEYANCE OF CERVICAL OR VAGINAL SMEAR TO LABORATORY 009 DoD PHYSICAL THERAPY RE-EVALUATION 008 DoD APPLICATION OF A MODALITY TO 1 OR MORE AREAS; ELECTRICAL STIMULATION (UNATTENDED) 008 DoD THERAPEUTIC PROCEDURE, 1 OR MORE AREAS, EACH 15 MINUTES; THERAPEUTIC EXERCISES TO DEVELOP STRENGTH AND ENDURANCE, RANGE OF MOTION AND FLEXIBILITY 008 DoD THERAPEUTIC PROCEDURE, 1 OR MORE AREAS, EACH 15 MINUTES; THERAPEUTIC EXERCISES TO DEVELOP STRENGTH AND ENDURANCE, RANGE OF MOTION AND FLEXIBILITY 008 DoD APPLICATION OF A MODALITY TO 1 OR MORE AREAS; HOT OR COLD PACKS 008 DoD DIABETIC INDICATOR; RETINAL EYE EXAM, DILATED, BILATERAL 008 DoD APPLICATION OF A MODALITY TO 1 OR MORE AREAS; HOT OR COLD PACKS 008 DoD APPLICATION OF A MODALITY TO 1 OR MORE AREAS; HOT OR COLD PACKS 008 DoD APPLICATION OF A MODALITY TO 1 OR MORE AREAS; HOT OR COLD PACKS 008 [facility] TELE ASSESS & MGT SRV PROV QUAL NONPHYS HLTH CARE PRO TO EST PAT,PARENT,GUARD NOT ORIG REL ASSESS & MGT SRV PROV W/IN PREV 7 DAYS NOR LEAD ASSESS & MGT SRV/PX W/IN NXT 24 HR/SOON APT;5-10 MIN MED DIS 008 DoD INJECTION, MEDROXYPROGESTERONE ACETATE FOR CONTRACEPTIVE USE, 150 MG 008 DoD INFECTIOUS AGENT ANTIGEN DETECTION BY IMMUNOASSAY WITH DIRECT OPTICAL (IE, VISUAL) OBSERVATION; STREPTOCOCCUS, GROUP A 008 DoD INJECTION, MEDROXYPROGESTERONE ACETATE FOR CONTRACEPTIVE USE, 150 MG 008 DoD UNLISTED THERAPEUTIC, PROPHYLACTIC OR DIAGNOSTIC INTRAVENOUS OR INTRA-ARTERIAL INJECTION OR INFUSION 008 [facility] SCREENING [employer]AOU SMEAR; OBTAINING, PREPARING AND CONVEYANCE OF CERVICAL OR VAGINAL SMEAR TO LABORATORY 008 [facility] Physical Therapy: ___ Se ion Segments, 15 Minutes Each Physical Therapy: ___ Session Segments, 15 Minutes Each 18436 008 RUFINO PROCTOR Modalities Electrical Stimulation Unattended Modalities Electrical Stimulation Unattended 81729 008 RUFINO PROCTOR Modalities Heat Hot Packs Modalities Heat Hot Packs 49501 008 RUFINO PROCTOR Modalities Heat Hot Packs Modalities Heat Hot Packs 77011 008 WILLIE ALMONTE Physical Therapy: ___ Se ion Segments, 15 Minutes Each Physical Therapy: ___ Session Segments, 15 Minutes Each 66477 008 WILLIE ALMONTE Modalities Electrical Stimulation Unattended Modalities Electrical Stimulation Unattended 17599 008 WILLIE ALMONTE Diabetic indicator; retinal eye exam, dilated, bilateral 008 DONNY KEBEDE Determination Of Refractive State Determination Of Refractive State 66011 008 DONNY KEBEDE Visual James Test Intermediate Examination Visual James Test Intermediate Examination 82210 008 DONNY KEBEDE Ophthalmological New Patient Start Comprehensive Care Ophthalmological New Patient Start Comprehensive Care 14559 008 DONNY KEBEDE [facility] Modalities Electrical Stimulation Unattended Modalities Electrical Stimulation Unattended 30401 008 RUFINO PROCTOR [facility] Modalities Heat Hot Packs Modalities Heat Hot Packs 83815 008 RUFINO PROCTOR [facility] Physical Therapy: ___ Se ion Segments, 15 Minutes Each Physical Therapy: ___ Session Segments, 15 Minutes Each 62029 008 RUFINO PROCTOR [facility] Modalities Electrical Stimulation Unattended Modalities Electrical Stimulation Unattended 88742 008 RUFINO PROCTOR [facility] Modalities Heat Hot Packs Modalities Heat Hot Packs 60352 008 ESTHELARUFINO ODELL [facility] Physical Therapy: ___ Se ion Segments, 15 Minutes Each Physical Therapy: ___ Session Segments, 15 Minutes Each 75413 008 ESTHELARUFINO ODELL [facility] Modalities Heat Hot Packs Modalities Heat Hot Packs 41924 008 WILLIE ALMONTE Modalities Electrical Stimulation Unattended Modalities Electrical Stimulation Unattended 35006 008 WILLIE ALMONTE Training And Self-Care Skills Training And Self-Care Skills 97235 008 WILLIE ALMONTE Physical Therapy: ___ Se ion Segments, 15 Minutes Each Physical Therapy: ___ Session Segments, 15 Minutes Each 66757 008 WILLIE ALMONTE Physical Therapy Mobilization Joint Physical Therapy Mobilization Joint 07707 008 DAVIE ORTEGA [facility] Modalities Heat Hot Packs Modalities Heat Hot Packs 57107 008 DAVIE ORTEGA [facility] Modalities Electrical Stimulation Modalities Electrical Stimulation 86432 008 DAVIE ORTEGA [facility] Physical Medicine Physical Therapy Evaluation Physical Medicine Physical Therapy Evaluation 90975 008 DAVIE ORTEGA [facility] Non-Physician Phone Call To Patient/Provider Brief (5-10min) Non-Physician Phone Call To Patient/Provider Brief (5-10min) [address] Supervised Injection Intramuscular Supervised Injection Intramuscular 64354 CLARKE RABAGO Injection, medroxyprogesterone acetate for contraceptive use, [address] Supervised Injection Supervised Injection 21968 008 MERYL GAITAN Screening papanicolaou smear; obtaining, preparing and conveyance of cervical or vaginal smear to laboratory 008 MERYL GAITAN [facility] Prof Estab Patient Internet Med [facility] Prof Estab Patient [id number] ESTUARDO REDDING Medication Management By Pharmacist Each Additional 15 Min Medication Management By Pharmacist Each Additional 15 Min [id number] ESTUARDO REDDING Med Management By Pharmacist Initial 15 Min Estab Patient Med Management By Pharmacist Initial 15 Min Estab Patient [id number] ESTUARDO REDDING Internet [facility] Svc [facility] Prof Estab Patient Internet Med Svc Qual [facility] Prof Estab Patient [id number] ESTUARDO REDDING Medication Management By Pharmacist Each Additional 15 Min Medication Management By Pharmacist Each Additional 15 Min [id number] ESTUARDO REDDING Med Management By Pharmacist Initial 15 Min Estab Patient Med Management By Pharmacist Initial 15 Min Estab Patient [id number] ESTUARDO REDDING Medication Management By Pharmacist Each Additional 15 Min Medication Management By Pharmacist Each Additional 15 Min [id number] ESTUARDO REDDING Med Management By Pharmacist Initial 15 Min Estab Patient Med Management By Pharmacist Initial 15 Min Estab Patient [id number] ESTUARDO REDDING [facility] Prof Estab Patient Internet Med Svc [facility] Prof Estab Patient [id number] ESTUARDO REDDING Medication Management By Pharmacist Each Additional 15 Min Medication Management By Pharmacist Each Additional 15 Min [id number] ESTUARDO REDDING Med Management By Pharmacist Initial 15 Min Estab Patient Med Management By Pharmacist Initial 15 Min Estab Patient [id number] ESTUARDO REDDING Non-Physician Phone Call To Patient/Provider Brief (5-10min) Non-Physician Phone Call To Patient/Provider Brief (5-10min) [id number] 018 DONYA CALDERON [facility] Prof Estab Patient [facility] Prof Estab Patient [id number] ESTUARDO REDDING [facility] Medication Management By Pharmacist Each Additional 15 Min Medication Management By Pharmacist Each Additional 15 Min [id number] ESTUARDO REDDING [facility] Med Management By Pharmacist Initial 15 Min New Patient Med Management By Pharmacist Initial 15 Min New Patient [id number] ESTUARDO REDDING [facility] Internet Med [facility] Prof Estab Patient Internet Med [facility] Prof Estab Patient [id number] MARIELA BRITT [facility] Non-Physician Phone Call To Patient/Provider Brief (5-10min) Non-Physician Phone Call To Patient/Provider Brief (5-10min) [id number] 018 NERY SO V [facility] Prof Estab Patient Internet Med [facility] Prof Estab Patient [id number] MARIELA BRITT [facility] Non-Physician Phone Call To Patient/Provider Brief (5-10min) Non-Physician Phone Call To Patient/Provider Brief (5-10min) [id number] 017 JOSIAS DELONG [facility] Screening papanicolaou smear; obtaining, preparing and conveyance of cervical or vaginal smear to laboratory 017 PJ ALEXANDER [facility] Disease management program, follow-up/jelena e ment 017 JOE MCKEON [facility] Telephone calls by a registered nurse to a disease management program member for monitoring purposes; per month 017 JOE MCKEON Non-Physician Phone Call To Patient/Provider Brief (5-10min) Non-Physician Phone Call To Patient/Provider Brief (5-10min) [id number] 017 JOE MCKEON Disease management program, follow-up/jelena e ment 017 SHRUTHI COUGHLIN [facility] Disease management program; initial a e ment and initiation of the program 016 JOE MCKEON [facility] Non-Physician Phone Call To Patient/Provider Brief (5-10min) Non-Physician Phone Call To Patient/Provider Brief (5-10min) [id number] [id number] JOSIAS DELONG [facility] Non-Physician Phone Call To Patient/Provider Brief (5-10min) Non-Physician Phone Call To Patient/Provider Brief (5-10min) [id number] MARIELA BRITT [facility] Disease management program, follow-up/jelena e ment 016 CASIMIRO WELLS [facility] Telephone calls by a registered nurse to a disease management program member for monitoring purposes; per month 016 KENYA NEVES [facility] Non-Physician Phone Call To Patient/Provider Brief (5-10min) Non-Physician Phone Call To Patient/Provider Brief (5-10min) [id number] [phone] KENYA NEVES [facility] Non-Physician Phone Call To Patient/Provider Brief (5-10min) Non-Physician Phone Call To Patient/Provider Brief (5-10min) [id number] [phone] FERNANDA BONE [facility] Disease management program, follow-up/jelena e ment 015 CASIMIRO WELLS [facility] Telephone calls by a registered nurse to a disease management program member for monitoring purposes; per month 015 KENYA NEVES [facility] Non-Physician Phone Call To Patient/Provider Brief (5-10min) Non-Physician Phone Call To Patient/Provider Brief (5-10min) [id number] FERNANDA BONE [facility] Telephone calls by a registered nurse to a disease management program member for monitoring purposes; per month 014 KENYA NEVES [facility] Non-Physician Phone Call To Patient/Provider Brief (5-10min) Non-Physician Phone Call To Patient/Provider Brief (5-10min) [phone] KENYA NEVES [facility] Gynecologic Services Intrauterine Device (IUD) Removal Gynecologic Services Intrauterine Device (IUD) Removal 32807 013 ED BARAJAS [facility] Non-Physician Phone Call To Patient/Provider Brief (5-10min) Non-Physician Phone Call To Patient/Provider Brief (5-10min) [phone] CRISTINA CACERES Non-Physician Phone Call To Patient/Provider Brief (5-10min) Non-Physician Phone Call To Patient/Provider Brief (5-10min) [phone] JOE MCKEON Non-Physician Phone Call To Pt/Provider Intermed (11-20 min) Non-Physician Phone Call To Pt/Provider Intermed (11-20 min) [id number] 012 JOE MCKEON Non-Physician Phone Call To Patient/Provider Brief (5-10min) Non-Physician Phone Call To Patient/Provider Brief (5-10min) [phone] JOE MCKEON [facility] Intrauterine Device (IUD) Insertion Gynecologic Services Intrauterine Device (IUD) Insertion [id number] ED BARAJAS Test Test 65635 ED BARAJAS Screening papanicolaou smear; obtaining, preparing and conveyance of cervical or vaginal smear to laboratory 012 DONYA AGUIRRE Non-Physician Phone Call To Pt/Provider Intermed (11-20 min) Non-Physician Phone Call To Pt/Provider Intermed (11-20 min) [phone] BESSIE BARLOW Visual James Test Intermediate Examination Visual James Test Intermediate Examination 36629 АННА BARAJAS Diabetic indicator; retinal eye exam, dilated, bilateral АННА BARAJAS Scanning Computerized Ophthalmic Diagnostic Imaging Retina Scanning Computerized Ophthalmic Diagnostic Imaging Retina 87921 012 АННА BARAJAS Determination Of Refractive State Determination Of Refractive State 55728 АННА BARAJAS Ophthalmological Prior Patient Start Comprehensive Care Ophthalmological Prior Patient Start Comprehensive Care [phone] АННА BARAJAS Non-Physician Phone Call To Patient/Provider Brief (5-10min) Non-Physician Phone Call To Patient/Provider Brief (5-10min) [id number] JOE MCKEON Non-Physician Phone Call To Patient/Provider Brief (5-10min) Non-Physician Phone Call To Patient/Provider Brief (5-10min) [id number] [id number] JOE MCKEON [facility] Influenza Split Virus Vaccine Age 3+ Years Intramuscular 011 MICHELLE NAJERA [facility] Immunization Administration One Vaccine Immunization Administration One Vaccine [id number] JUANA NAJERAISSA Viji [facility] Non-Physician Phone Call To Patient/Provider Brief (5-10min) Non-Physician Phone Call To Patient/Provider Brief (5-10min) [id number] [id number] HORACE TAYLOR [facility] Non-Physician Phone Call To Patient/Provider Brief (5-10min) Non-Physician Phone Call To Patient/Provider Brief (5-10min) [phone] YASSINE PENNINGTON [facility] Determination Of Refractive State Determination Of Refractive State [id number] GABRIELA KIMBROUGH [facility] Ophthalmological Prior Patient Start Comprehensive Care Ophthalmological Prior Patient Start Comprehensive Care [phone] GABRIELA KIMBROUGH [facility] Non-Physician Phone Call To Pt/Provider Intermed (11-20 min) Non-Physician Phone Call To Pt/Provider Intermed (11-20 min) [phone] TAYLOR, [facility] Telephone calls by a registered nurse to a disease management program member for monitoring purposes; per month 011 HORACE TAYLOR [facility] Non-Physician Phone Call To Patient/Provider Brief (5-10min) Non-Physician Phone Call To Patient/Provider Brief (5-10min) [phone] KE RODRIGEZ [facility] Diabetic indicator; retinal eye exam, dilated, bilateral 010 DONNY KEBEDE [facility] Visual James Test Intermediate Examination Visual James Test Intermediate Examination [id number] ODNNY KEBEDE [facility] Determination Of Refractive State Determination Of Refractive State [id number] DONNY KEBEDE Ophthalmological Prior Patient Start Comprehensive Care Ophthalmological Prior Patient Start Comprehensive Care [phone] DONNY KEBEDE [facility] Non-Physician Phone Call To Patient/Provider Brief (5-10min) Non-Physician Phone Call To Patient/Provider Brief (5-10min) [phone] SUKH LOMELI [facility] Screening papanicolaou smear; obtaining, preparing and conveyance of cervical or vaginal smear to laboratory 009 SHAYLA HEAD [facility] Physical Medicine Physical Therapy Re-Evaluation Physical Medicine Physical Therapy Re-Evaluation [id number] DAVIE ORTEGA [facility] Modalities Heat Hot Packs Modalities Heat Hot Packs [id number] ESTHELA RUFINO Loren [facility] Physical Therapy: ___ Se ion Segments, 15 Minutes Each Physical Therapy: ___ Session Segments, 15 Minutes Each [id number] RUFINO PROCTOR [facility] Modalities Electrical Stimulation Unattended Modalities Electrical Stimulation Unattended [id number] RUFINO PROCTOR [facility] Med Management By Pharmacist Initial 15 Min Estab Patient Med Management By Pharmacist Initial 15 Min Estab Patient [id number] ESTUARDO REDDING [facility] Medication Management By Pharmacist Each Additional 15 Min Medication Management By Pharmacist Each Additional 15 Min [id number] ESTUARDO REDDING [facility] Internet Med Svc Qual Nonphys Healthcare Prof Estab Patient Internet Med Svc Qual Nonphys Healthcare Prof Estab Patient [id number] ESTUARDO REDDING [facility] Non-Physician Phone Call To Patient/Provider Brief (5-10min) Non-Physician Phone Call To Patient/Provider Brief (5-10min) [id number] ESTUARDO REDDING [facility] Waiver services; not otherwise specified (NOS) ESTUARDO REDDING [facility] Non-Physician Phone Call To Pt/Provider Intermed (11-20 min) Non-Physician Phone Call To Pt/Provider Intermed (11-20 min) [id number] MACY CR [facility] Preventive Medicine Physical Foot Examination Performed Preventive Medicine Physical Foot Examination Performed INEZ CLEMENTE [facility] Cataract removal left eye [id number] th [facility] Lasik left eye 023 [id number] th [facility] Cataract removal right eye 024 [id number] th [facility] upper WTE 009 [id number] th [facility] D+C 991 [id number] th [facility] Social History Combined list of available smoking, tobacco, and other social history from Department of Defense and Veterans Affairs facilities. Social History Type Response Date Comment Sourc e Sex Representation Female (finding) 10/13/2022 Unknown Organization This section is an empty social history section. [employer]D Tobacco Cigarette use: Never-cigarette user. Other Tobacco use: Never-other tobacco user (not cigarettes). Ambulatory Pharmacy Sexual Orientation Ambula tory Pharmacy Gender identity Ambulator y Pharmacy Assessment and Plan Combined list of future care activities from Department of Defense and Veterans Affairs facilities (e.g., assessment and plan notes, appointments, orders, and referrals). Additional future care activities may be listed in the Plan of Care section. Result Assessment and Plan Date Source Assessment and Plan Extracted from:Title : 0055 IMCL DMII F/U Author: INEZ CLEMENTE, DO Date: 09/12/24 1. 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 Well controlled on current medications; patient is up-to-date on preventative medicine services (foot exam performed A pril 2023). Appropriately on RAAS Inhibition. G oal A1c is: < 7.0% . To assist with glycemic control and cardiovascular risk, patient should exercise at least 150 min/week. P atient counseled extensively on reducing processed sugar and carbohydrates, to include information regarding healthy choices, opting for complex carbohydrates over simple carbohydrates. Patient will be due for A1c i n 6 M onths. Will CCM at this time. Patient encouraged to return to clinic, present to UCC or ER for d evelopment of other concerning symptoms. Patient cites understanding and agrees with plan of care. 2. L goldie term (current) use of oral hypoglycemic drugs 3. L goldie term (current) use of insulin 4. E ssential (primary) hypertension P oorly controlled in clinic today (goal <130/80 per ACC/AHA guidelines). Previous measures with good control, cites control at home. M ost recent renal panel demonstrates intact/stable renal function. Will have patient monitor blood pressure at home for 2-3 weeks and advised to return if for repeat evaluation and adjustment of therapy if persistently above goal. Patient cites understanding and agrees. 5. A llergic rhinitis, unspecified M edication Refills placed. 6. G brody-esophageal reflux disease without esophagitis N o alarm symptoms. Medication Refills placed. 7. H yperlipidemia A SCVD risk elevated 2/2 DMII and HTN. Continue statin therapy. Melba Clemente DO, MEd , , [facility] Internal Medicine, Nolberto HARDING Extracted from:Title: [id number] F2F 3 MONTH DM F/U Author: ESTUARDO REDDING, PharmD Date: 05/14/24 Beny [place] for therapeutic drug level monitoring Saw patient in clinic on 05/14/2024. Patient presenting to PharmD Clinic for medication therapy management and disease state management. Discussed all other lab results. Advised to contact with any questions or concerns. Pt v/u. Total time with patient - 50 min Estuardo Redding, PharmD Clinical Pharmacist [address] [place] [address] N[place]berto [place] Ordered: Hemoglobin A1c 2. 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 Also changed from Trulicity 4.5 mg weekly to Ozempic 1 mg weekly due to nationwide shortage on Trulicity. Aslo started FreeStyle Jesse 3 CGM. A1c at goal of less than 7% at 6.5%. Previous A1c in Jan 2024 was 6.7%, Oct 2023 7.0%, D ec 2022 was 7.7%, O ct 2022 was 7.9%, a nd Jan 2023 was 7 .5%. Now using the FreeStyle Jesse 3 [place] + sensors. See note below. Educated about correct sensor placement. Educated when to use SMBG. N eeds to be double checking sensor lows with fingersticks and treating/adjusting medication off of fingerstick. Average BG for A1c of 6.5% = 140. SCr elevated at 1.4 in Jan 2024. Running 1.4 up to 1.7 over the past few years. Some proteinuria at this time. Stage 3 CKD. Was f/b corporate risk analyst Dr. Jose Correia in [place], [place] but didn't care for him. A new referral was placed for Dr Leonard in [place], but she hasn't seen him yet. Educated to keep well hydrated with water, keep DM/HTN controlled, and avoid nephrotoxic agents such as NSAIDs. Liver enzymes WNL at this time. Educated about complications from uncontrolled DM/HTN/HLD. Educated about hypoglycemia including 15-15 r ule. She states not all the lows on the sensor were accurate because she didn't have sx. Educated about hypoglycemia unawareness. Educated to always double check lows with fingersticks - add note in reader. Educated about BG goals and when to monitor - fasting and postprandial. Discussed diet/lifestyle modifications. States compliant with medications. Has had a nnual diabetic eye exam. H as had annual diabetic foot exam with PCM team. Declines colonoscopy. Has Cologuard kit at home, just needs to complete it. Has mammogram scheduled for 03/19/24. Instructed to contact PCM team for CT o r MRI f ollow-up order on lesion in left kidney. S he also wants to ask about a benzo due to anxiety with last scan. U p to date on all other preventative health screenings. Denies all other s/sx of hyperglycemia/hypoglycemia or UTI/yeast infections at this time. Jul 2023, YANI w as negative (negative for Type 1 AM/JASSON) a nd C-peptide level was high (insulin resistance). Tolerating medications. eGFR 44 mL/min. Currently taking Lantus 50 units at bedtime. Can increase/decrease L antus dose by 2 units every 3 days to reach fasting < 130, postprandial < 180, and none < 70. Decrease dose daily if sugars below 70. Continue m etformin XR 500 mg two tabs (1,000 mg total) daily, Jardiance 25 mg daily, and Ozempic 1 mg weekly. Follow-up in 3 months or sooner with any sugars below 70 or consistently above 150. Ordered: empagliflozin(Jardiance 25 mg oral tablet), 1 tab(s), Oral, every morning, # 90 tab(s), 1 total refill(s), Maintenance, 1 tab(s) Oral every morning, Pharmacy: [facility] [Not filled] insulin glargine(Lantus Solostar Pen 100 units/mL subcutaneous solution), 50 unit(s), SubCutaneous, every day at bedtime, # 45 mL, 1 total refill(s), Maintenance, 5 pens = 15 mL, 50 unit(s) SubCutaneous every day at bedtime, Pharmacy: [facility] [Not filled] metFORMIN(MetFORMIN (Eqv-Glucophage XR) 500 mg oral tablet, extended release), 2 tab(s), Oral, Daily, with breakfast, # 180 tab(s), 1 total refill(s), Maintenance, 2 tab(s) Oral Daily,Instr:with breakfast, Pharmacy: [facility] [Not filled] needle pen 32g 4mm(needle pen 32g 4mm), See Instructions, Use a new pen needle with Lantus Solostar pen every night at bedtime, # 100 EA, 3 total refill(s), Maintenance, Supply, Route to [facility] [Not filled] 3. H ypertensive chronic kidney disease with stage 1 through stage 4 chronic kidney disease, or unspecified chronic kidney disease BP at goal at in clinic today. Educated about BP goal of less than 130/80. Monitoring twice daily. No log/meter brought in today. States running t eens/70s. Denies a ny SBP above 130/below 100 o r DBP above 80/in the 50s. Denies CP/SOB/BHATT/LYONS/BV/dizziness/palpi tations/dry cough/edema a t this time. Tolerating medication. On appropriate DANIEL-I with DM and CKD. Continue lisinopril 10 mg daily. Monitor at least weekly, m ore often if running too low/too high. E ducated how to properly monitor. K eep a log. Contact P CM if running too low (<100/50s) or consistently above goal. Ordered: lisinopril(lisinopril 10 mg oral tablet), 1 tab(s), Oral, Daily, # 90 tab(s), 1 total refill(s), Maintenance, 1 tab(s) Oral Daily, Pharmacy: [facility] [Not filled] 4. H yperlipidemia Repeat fasting lipid panel shows a ll values WNL. ( HDL above 40 and LDL below 100) Estimated 10-year ASCVD risk is 4.8%. On appropriate high intensity statin. Tolerating medication. Denies myalgias. Continue Crestor 40 mg daily. Not on a spirin for primary cardiac prevention due to increased risk of bleeding due to CKD. Ordered: rosuvastatin(Crestor 40 mg oral tablet), 1 tab(s), Oral, Daily, # 90 tab(s), 1 total refill(s), Maintenance, 1 tab(s) Oral Daily, Pharmacy: [facility] [Not filled] 5. B ack pain Lidocaine patches refilled. Ordered: lidocaine topical(lidocaine 5% topical patch), 2 patch(es), Topical, Daily, PRN pain, remove patches after 12 hours, # 180 patch(es), 1 total refill(s), Maintenance, 2 patch(es) Topical Daily,PRN:pain,Instr:remove patches after 12 hours, Pharmacy: [facility] [Not filled] 6. A llergic rhinitis, unspecified Cetirizine and Singulair refilled. Ordered: cetirizine(cetirizine 10 mg oral tablet), 1 tab(s), Oral, Daily, # 90 tab(s), 3 total refill(s), Maintenance, 1 tab(s) Oral Daily, Pharmacy: [facility] [Not filled] montelukast(Singulair 10 mg oral tablet), 1 tab(s), Oral, every day at bedtime, # 90 tab(s), 1 total refill(s), Maintenance, 1 tab(s) Oral every day at bedtime, Pharmacy: [facility] [Not filled] 7. G brody-esophageal reflux disease without esophagitis Omeprazole refilled. Ordered: omeprazole(omeprazole 20 mg oral delayed release capsule), 1 cap(s), Oral, Daily, 30 to 60 minutes before a meal, # 90 cap(s), 1 total refill(s), Maintenance, 1 cap(s) Oral Daily,Instr:30 to 60 minutes before a meal, Pharmacy: [facility] [Not filled] 8. C hronic kidney disease, stage 3b 9. L goldie term (current) use of oral hypoglycemic drugs 10. O ther intermediate project manager (current) drug therapy 11. L goldie term (current) use of insulin FreeStyle Jesse 3 7 days 14 days ? 30 days 90 days Avg 135 135 ? 130 130 Time in Target (70-180) Above 21 18 ? 12 1 3 In 77 ? 81 87 ? 84 Below 2 1 ? 1 ? 3 Low Glucose Events 4 ? 5 10 ? 32 Scheduled Date/Time AUG 27, 2024 at 10:30 Appointment Type IM FTR Location [id number] Reason for visit F2F 3 MONTH DM F/U [phone] Extracted from:Title: [id number] F2F 3 MONTH DM F/U Author: ESTUARDO REDDING, PharmD Date: 02/15/24 1. E chadunter for therapeutic drug level monitoring Patient presenting to PharmD Clinic for medication therapy management and disease state management. Advised to contact with any questions or concerns. Pt v/u. Total time with patient - 60 min Estuardo Redding, PharmD Clinical Pharmacist [address] [place] [address] Ordered: CBC w/ Diff Hemoglobin A1c Hepatic Function Panel Lipid Panel Magnesium Level Microalbumin Panel, Urine Vitamin B12 [id number] Vitamin D 25 Hydroxy Level 2. 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 Previous A1c in Oct 2023 7.0%, D ec 2022 was 7.7%, O ct 2022 was 7.9%, a nd Jan 2023 was 7 .5%. Monitoring fasting BG in the morning and prior to Lantus in the evening. No log/meter brought in today - instructed to bring to all appts. States A M running 70-103 and PM running 123-183. Denies any sugars below 70. Average BG for A1c of 6.7% = 146. SCr elevated at 1.4 at this time. Running 1.4 up to 1.7 over the past few years. No extensive proteinuria in May 2023. Stage 3 CKD. Was f/b corporate risk analyst Dr. Jose Correia in [place], [place] but didn't care for him. A new referral was placed for Dr Leonard in [place], but she hasn't seen him yet. Educated to keep well hydrated with water, keep DM/HTN controlled, and avoid nephrotoxic agents such as NSAIDs. Educated about complications from uncontrolled DM/HTN/HLD. Educated about hypoglycemia. P refer fasting BG 85-90 and up. Educated about BG goals and when to monitor - fasting and post prandial. For safety/efficacy, at a minimum should monitor fasting BG every morning and prior to Lantus. For accurate readings, ensure post prandial sugars are at least 2 hours after eating/drinking anything besides water. N ow meets coverage criteria for CGM. Educated about CGM. H as [employer]y A14 5G. Not on compatibility list for DesalitechStyle Jesse 3. Called [employer] and double checked as well. Patient prefers smaller sensors. I prefer Jesse 3 for more accuracy. Will also give Scyron Jesse 3 reader. Referral to Disease Management placed. Discussed diet/lifestyle modifications. States compliant with medications. Has had a nnual diabetic eye exam. H as had annual diabetic foot exam with PCM team. Declines colonoscopy. Has Cologuard kit at home, just needs to complete it. Has mammogram scheduled for 03/19/24. Instructed to contact PCM team for CT o r MRI f ollow-up order on lesion in left kidney. S he also wants to ask about a benzo due to anxiety with last scan. U p to date on all other preventative health screenings. Denies sx of hyperglycemia/hypoglycemia or UTI/yeast infections at this time. Jul 2023, YANI w as negative (negative for Type 1 AM/JASSON) a nd C-peptide level was high (insulin resistance). Tolerating medications. eGFR 44 mL/min. Decrease metformin XR 500 mg from t hree tabs (1,500 mg total) daily to two tabs (1,000 mg total) daily for renal function. Currently taking Trulicity 4.5 mg weekly - has 3 pens left. I nformed about nationwide shortage of Trulicity. [employer] is covering Ozempic during shortage. Equivalent dose of Trulicity 4.5 mg is Ozempic 1 mg. T his medication is in the same drug class as Trulicity, still injected in either the upper arms/upper thighs/abdomen (rotate injection sites, even if in the same location), and given once a week. The main difference is Ozempic is a multi dose pen that requires priming each time and the pen needles come separately in the box. It is kept in the refrigerator - do not freeze. You can keep it in there and take it out 30 minutes prior to injection or it can stay at room temperature for up to 56 days. I would like you to go to [employer], click on 'How To Take Ozempic', and watch the video. Please be mindful of common GI side effects for this drug class including nausea, vomiting, abdominal pain, diarrhea, or constipation. If you are ever having intense abdominal pain with or without vomiting, please go directly to the emergency room. Please contact our clinic after 1 month on therapy if you are having issues, sugars are elevated, or with any questions/concerns. Currently taking Lantus 58 units at bedtime. Can increase/decrease L antus dose by 2 units every 3 days to reach fasting < 130, post prandial < 180, and none < 70. Decrease dose daily if sugars below 70. M ax dose 80 units/day. Contact PharmD if requiring higher dose.?Would then discuss s plitting dose into AM and PM. Continue Jardiance 25 mg daily. Follow-up in 3 months or sooner with any sugars below 70 or consistently above 150. Ordered: glucose monitor Freestyle Jesse 3 [place](FreeStyle Jesse 3 [place]), See Instructions, Use as directed to monitor blood sugar. Change sensor every 14 days., # 1 EA, 0 total refill(s), Maintenance, Use as directed, Supply, Route to [facility] [Last filled 02/15/24] glucose sensor freestyle jesse 3(glucose sensor freestyle jesse 3), See Instructions, Use as directed to monitor blood sugar. Change sensor every 14 days., # 6 EA, 3 total refill(s), Maintenance, 6 EA = 84 days supply, Supply, Route to [facility] [Federal Rx: #6 last filled 02/15/24] metFORMIN(MetFORMIN (Eqv-Glucophage XR) 500 mg oral tablet, extended release), 2 tab(s), Oral, Daily, with breakfast, # 180 tab(s), 1 total refill(s), Maintenance, 2 tab(s) Oral Daily,Instr:with breakfast, Pharmacy: [facility] [Federal Rx: #180 last filled 02/15/24] semaglutide(semaglutide (Ozempic) 4 mg/3 mL (1 mg dose) inj-pen), 1 mg, SubCutaneous, every week, rotate injection sites, # 3 mL, 5 total refill(s), Maintenance, There are 4 pen needles in the box, 1 mg SubCutaneous every week,Instr:rotate injection sites, Pharmacy: [facility] [[facility] Rx: #3 last filled Referral Request 2.0 - [facility] 3. H ypertensive chronic kidney disease with stage 1 through stage 4 chronic kidney disease, or unspecified chronic kidney disease BP at goal at 1 14 in clinic today. Educated about BP goal of less than 130/80. 3 months ago, stopped HCTZ 12.5 mg daily. Monitoring twice daily. No log/meter brought in today. States running t eens/70s. Denies a ny SBP above 130 or DBP above 80. Denies CP/SOB/BHATT/LYONS/BV/dizziness/palpi tations/dry cough/edema a t this time. On appropriate DANIEL-I with DM and CKD. Continue lisinopril 10 mg daily. Monitor at least weekly, m ore often if running too low/too high. E ducated how to properly monitor. K eep a log. Contact PharmD if running too low (<100/50s) or consistently above goal. 4. H yperlipidemia Repeat fasting lipid panel in May 2023 s howed triglycerides elevated at 1 98 and HDL below 40. All other values WNL. (LDL below 100) Estimated 10-year ASCVD risk is 5.4%. On appropriate high intensity statin. Tolerating medication. Denies myalgias. Continue Crestor 40 mg daily. Not on a spirin for primary cardiac prevention due to increased risk of bleeding due to CKD. 5. H ypercalcemia Corrected calcium 10.3 at this time. Corrected calcium elevated at 10.58 in Oct 2023. Jul 2023 was 10.06, May 2023 was 10.12, and Jan 2023 was 10.5. Denies OTC calcium supplement, Tums, or Rolaids. 6. A llergic rhinitis, unspecified Doesn't feel like cetirizine is helping as much. Discussed loratadine and fexofenadine. Per J[facility], trialed loratadine in 2008 and 2021. Will trial Bonnie 60 mg twice daily due to CrCl between 10-50 mL/min. Also suggested trial of OTC Extra Strength Pataday 0.7% if needed rather than Patanol 0.1%. Ordered: fexofenadine(fexofenadine 60 mg oral tablet), 1 tab(s), Oral, BID, # 180 tab(s), 3 total refill(s), Maintenance, 1 tab(s) Oral BID, Pharmacy: [facility] [Federal Rx: #180 last filled 02/15/24] olopatadine ophthalmic(Patanol 0.1% ophthalmic solution), 1 drop(s), Eye-Both, BID, # 20 mL, 3 total refill(s), Maintenance, 1 drop(s) Eye-Both BID, Pharmacy: [facility] [Federal Rx: #20 last filled 02/15/24] 7. C hronic kidney disease, stage 3b 8. L goldie term (current) use of oral hypoglycemic drugs 9. 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 L goldie term (current) use of insulin Scheduled Date/Time MAY 14, 2024 at 10:00 Appointment Type PHARM FTR Location [id number] Reason for visit F2F 3 MONTH DM F/U [phone] Extracted from:Title: 0055 [facility] Annual Author: INEZ CLEMENTE, DO Date: 12/19/23 1. E ncounter for general adult medical examination with abnormal findings Patient is a [age] Years Female w ith history of D MII, HTN, and HLD presenting today for annual exam. Discussed most recent labwork, medications and prev med as documented. Patient currently feels well, denies any acute complaints. ROS unremarkable. Physical exam is unremarkable. Patient is due for the following Preventative Medicine services, for which, patient has been ordered or referred as noted: - Immunizations (COVID, RSV) patient declines - Breast Cancer Screening (january) - Colorectal Cancer Screening - Cologaurd ordered November 2023 Otherwise, patient's screenings and vaccinations are UTD as documented. Patient with elevated ASCVD r isk, B ased on ACC/AHA guidelines, would recommend that patient C ontinue [id number] intensity statin. P atient may follow up in 6-12 months for continued PCM care. A total of 40 minutes was spent on this visit reviewing previous notes, counseling the patient on the listed diagnoses, reviewing/ordering tests, adjusting medications, and documenting the findings in this note. 2. C hronic kidney disease, stage 3a Stable, no acute changes. On RAAS inhibition. CCM. 3. H yperlipidemia ASCVD as above. 4. E ssential (primary) hypertension Patient s blood pressure has been w ell-controlled w ith current medications and within patient s goal of: < 130/80mmHg. Patient d oes c heck blood pressures at home. Previous measures with good control, cites control at home. M ost recent renal panel demonstrates intact/stable renal function. Will CCM. 5. L goldie term (current) use of insulin 6. L goldie term (current) use of oral hypoglycemic drugs 7. 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 Well controlled on current medications; patient is up-to-date on preventative medicine services (foot exam performed today, without signs of neuropathy). Appropriately on RAAS Inhibition. G oal A1c is: < 7.0% . To assist with glycemic control and cardiovascular risk, patient should exercise at least 150 min/week. P atient counseled extensively on reducing processed sugar and carbohydrates, to include information regarding healthy choices, opting for complex carbohydrates over simple carbohydrates. Patient will be due for A1c i n 6-12?Months. Patient cites understanding and agrees with plan of care. 8. O besity Discussed diet and exercise to benefit wt, HTN and DMII. Specifically recommended Mediterranean, low carb, and whole food plant based diet. Discussed ACC/AHA recommendations for exercise (150 min/wk). Patient cites understanding and agrees. 9. B DC 30+ - obesity B. Tanmay Clemente DO, [email or web address], , [facility] Internal Medicine, Nolberto H[place] Extracted from:Title: [id number] [facility] Preoperative Eval Author: INEZ CLEMENTE DO Date: 11/27/23 Preprocedural examination done Patient is a 58 year old female with history of DMII, HTN and cataracts presenting for preoperative evaluation prior to planned cataracts surgery. Currently, patient feels well and at baseline health. Exam is unremarkable. Patient is ASA class II with a DASI demonstrating she is able to accomplish >4 METS of functional capacity. Rodriguez <1%. Per ACC/AHA guidance, patient may proceed to procedure without further risk stratification. Full recommendations as noted in 'procedure narrative' section of this note. A copy of recommendations was provided to patient and faxed to provider with EKG report, and other clinically relevant information. Patient encouraged to return to clinic, present to UCC or ER for development of any concerning symptoms. Patient cites understanding and agrees with plan of care. A total of 40 minutes was spent on this visit reviewing previous notes, counseling the patient on the listed diagnoses, reviewing/ordering tests, adjusting medications, and documenting the findings in this note. Chacho. Tanmay Clemente DO, [email or web address], , [facility] Internal Medicine, [place]to [place] Extracted from:Title: [id number] F2F 3 MONTH DM F/U Author: ESTUARDO REDDING, PharmD Date: 11/14/23 1Belkys Anne ncounter for therapeutic drug level monitoring On 06/08/2023, started metformin XR 500 mg daily x 1 week, then increased to two tabs (1,000 mg total) daily. Decreased glipizide from 5 mg twice daily to 5 mg daily x 1-2 weeks, then stopped. C ontinued Lantus 58 units at bedtime, Jardiance 25 mg daily, and Trulicity 4.5 mg weekly. S he had to i ncrease Lantus up to 68 units. 08/02/2023 increased metformin to three tabs (1,500 mg total) daily. A1c above goal of less than 7% at 7.0%. Previous A1c in Jul 2023 was 7.7%, O 2022 was 7.9%,?Jan 2023 was 7 .5%, a nd Jul 2022 was 7.8%. Monitoring fasting BG in the morning and prior to Lantus in the evening. No log/meter brought in today - instructed to bring to all appts. States A M running 90s to 110. States PM running 140 up to 210 (usually below 180, spikes with dietary indiscretions). D enies any sugars below 70, l owest was 75 x 1 in the AM. Average BG for A1c of 7.0% = 154. SCr elevated at 1.4 at this time. Running 1.4 up to 1.7 over the past few years. No extensive proteinuria in May 2023. Stage 3 CKD. Was f/b corporate risk analyst Dr. Jose Correia in [place], [place] but didn't care for him. A new referral was placed for Dr Leonard in [place], but she hasn't seen him yet. Educated to keep well hydrated with water, keep DM/HTN controlled, and avoid nephrotoxic agents such as NSAIDs. Educated about complications from uncontrolled DM/HTN/HLD. Educated about hypoglycemia. Educated about the 15-15 rule. I nstructed to purchase OTC glucose tablets. O rdered glucagon - instructed to have close family/friends read how to mix it now, where it is k ept, and to call 911 after use. Educated about BG goals and when to monitor - fasting and post prandial. For safety/efficacy, at a minimum should monitor fasting BG every morning and prior to Lantus. For accurate readings, ensure post prandial sugars are at least 2 hours after eating/drinking anything besides water. Previously discussed Freestyle Jesse 3 C GM - she does not meet coverage criteria, so she would have to pay out of pocket - she declines. Discussed diet/lifestyle modifications. H as lost about 10 lbs since May 2023. States compliant with medications. Has had a nnual diabetic eye exam. O jessica for a nnual diabetic foot exam with PCM team - scheduled for her. Declines colonoscopy, but fecal occult test was negative this year. Up to date on all other preventative health screenings. Denies sx of hyperglycemia/hypoglycemia or UTI/yeast infections at this time. Jul 2023, YANI w as negative (negative for Type 1 AM/JASSON) a nd C-peptide level was high (insulin resistance). Tolerating medications. Discussed therapy options. T rying to avoid meal time insulin if possible. CrCl is 5 7 mL/min. No renal dose adjustments indicated at this time. For CrCl 4 5-60 mL/min, guidelines state for metformin: no adjustment or 1,500 mg/day. Currently taking Lantus 68 units at bedtime. Can increase/decrease L antus dose by 2 units every 3 days to reach fasting < 130, post prandial < 180, and none < 70. Max dose 80 units/day. Contact PharmD if requiring higher dose. W ould then discuss s plitting dose into AM and PM. Continue m etformin XR 500 mg three tabs (1,500 mg total) daily, J ardiance 25 mg daily with breakfast, and Trulicity 4.5 mg weekly. Follow-up in 3 months or sooner with any sugars below 70 or consistently above 150. She is having cataract surgery on her right eye on 12/11/2023. She was instructed to have surgery clearance with her PCM. Scheduled for her. Overdue for annual + diabetic foot exam with PCM. Scheduled for her. Instructed to complete fasting labs + urine 1 week prior to appt. Advised to contact with any questions or concerns. Pt v/u. Total time with patient - 40 min Estuardo Redding, PharmD Clinical Pharmacist [address] [place] [address] Nolberto BOWLES Ordered: CBC w/ Diff Hemoglobin A1c Hepatic Function Panel Lipid Panel Magnesium Level Microalbumin Panel, Urine Renal Function Panel Vitamin B12 [id number] Vitamin D 25 Hydroxy Level 2. 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 Ordered: Freestyle Lite Monitor Rx(Freestyle Lite Monitor), See Instructions, Use as directed to monitor blood sugar twice daily, # 1 EA, 0 total refill(s), Maintenance, last filled in 2018, Supply, Route to [facility] [Not filled] glucagon(Glucagon Emergency Kit for Low Blood Sugar 1 mg injection), 1 mg, IntraMuscular, As Directed, PRN low blood sugar, call 911 immediately after use, # 1 EA, 3 total refill(s), Maintenance, 1 mg IntraMuscular As Directed,PRN:low blood sugar,Instr:call 911 immediately after use, Pharmacy: [facility] [Not fille glucose test strip (freestyle lite)(glucose test strip (freestyle lite)), See Instructions, Use as directed to check blood sugar twice daily, # 200 EA, 3 total refill(s), Maintenance, Supply, Route to [facility] [Not filled] isopropyl alcohol topical(isopropyl alcohol 70% topical pad), See Instructions, Use as directed to check blood sugar twice daily, prior to Lantus at bedtime, and prior to Trulicity once a week, # 300 EA, 3 total refill(s), Maintenance, Supply, Use as directed to check blood sugar twice daily, prior to Lantus at... [ empagliflozin(Jardiance 25 mg oral tablet), 1 tab(s), Oral, every morning, # 90 tab(s), 1 total refill(s), Maintenance, 1 tab(s) Oral every morning, Pharmacy: [facility] [Not filled] lancet freestyle 28g(lancet freestyle 28g), See Instructions, Use as directed to check blood sugar twice daily, # 200 EA, 3 total refill(s), Maintenance, Supply, Route to [facility] [Not filled] insulin glargine(Lantus Solostar Pen 100 units/mL subcutaneous solution), 68 unit(s), SubCutaneous, every day at bedtime, # 60 mL, 1 total refill(s), Maintenance, 5 pens = 15 mL, 68 unit(s) SubCutaneous every day at bedtime, Pharmacy: [facility] [Not filled] metFORMIN(MetFORMIN (Eqv-Glucophage XR) 500 mg oral tablet, extended release), 3 tab(s), Oral, Daily, with a meal, # 270 tab(s), 1 total refill(s), Maintenance, 3 tab(s) Oral Daily,Instr:with a meal, Pharmacy: [facility] [Not filled] needle pen 32g 4mm(needle pen 32g 4mm), See Instructions, Use a new pen needle with Lantus Solostar pen every night at bedtime, # 100 EA, 1 total refill(s), Maintenance, Supply, Route to [facility] [Not filled] dulaglutide(Trulicity Pen 4.5 mg/0.5 mL subcutaneous solution), 4.5 mg, SubCutaneous, every week, # 6 mL, 1 total refill(s), Maintenance, 4.5 mg SubCutaneous every week, Pharmacy: [facility] [Not filled] 3. H ypertensive chronic kidney disease with stage 1 through stage 4 chronic kidney disease, or unspecified chronic kidney disease BP at goal at in clinic today. Educated about BP goal of less than 130/80. Monitoring about once every couple of weeks or so. No log/meter brought in today. States running 120s/70s. Denies any above 130/80 or below 100/50s. Denies CP/SOB/BHATT/LYONS/BV/dizziness/palpi tations/dry cough a t this time. On appropriate DANIEL-I with DM and CKD. Discussed diuretic. States she never had issues with edema in the past. D iscussed a trial of holding HCTZ to see if that h elps kidney function, but also ensuring BP stays at goal. She is agreeable to try. Stop HCTZ 12.5 mg daily. Continue lisinopril 10 mg daily. Instructed to monitor BP daily for 2-4 weeks. Contact PharmD if BP spiking at the 2 week m ark, if not - wait 4 weeks. If BP spikes, contact PharmD. Will then adjust lisinopril/monitor renal function. If at goal, can then decrease to weekly monitoring, more often if running too low/too high. E ducated how to properly monitor. Ordered: lisinopril(lisinopril 10 mg oral tablet), 1 tab(s), Oral, Daily, # 90 tab(s), 1 total refill(s), Maintenance, 1 tab(s) Oral Daily, Pharmacy: [facility] [Not filled] 4. H yperlipidemia Repeat fasting lipid panel in May 2023 s howed triglycerides elevated at 1 98 and HDL below 40. All other values WNL. (LDL below 100) Estimated 10-year ASCVD risk is 5.1%. On appropriate high intensity statin. Tolerating medication. Denies myalgias. Continue Crestor 40 mg daily. Not on a spirin for primary cardiac prevention due to increased risk of bleeding due to CKD. Ordered: rosuvastatin(Crestor 40 mg oral tablet), 1 tab(s), Oral, Daily, # 90 tab(s), 1 total refill(s), Maintenance, 1 tab(s) Oral Daily, Pharmacy: [facility] [Not filled] 5. H ypercalcemia Corrected calcium elevated at 10.58 at this time. Jul 2023 was 10.06, May 2023 was 10.12, and Jan 2023 was 10.5. Denies OTC calcium supplement, Tums, or Rolaids. Added to annual appt for PCM to discuss with patient. 6. A llergic rhinitis, unspecified Sx controlled on therapy. Medication refilled. Ordered: montelukast(Singulair 10 mg oral tablet), 1 tab(s), Oral, every day at bedtime, # 90 tab(s), 1 total refill(s), Maintenance, 1 tab(s) Oral every day at bedtime, Pharmacy: [facility] [Not filled] 7. B ack pain Educated about proper use of lidocaine patches. Using as needed. Medication refilled. Ordered: lidocaine topical(lidocaine 5% topical film), 2 patch(es), Topical, Daily, PRN pain, remove patches after 12 hours, # 180 patch(es), 1 total refill(s), Maintenance, 2 patch(es) Topical Daily,PRN:pain,Instr:remove patches after 12 hours, Pharmacy: [facility] [Not filled] 8. G brody-esophageal reflux disease without esophagitis Sx controlled on PPI. Medication refilled. Ordered magnesium level to be checked. Ordered: omeprazole(omeprazole 20 mg oral delayed release capsule), 1 cap(s), Oral, Daily, 30 to 60 minutes before a meal, # 90 cap(s), 1 total refill(s), Maintenance, 1 cap(s) Oral Daily,Instr:30 to 60 minutes before a meal, Pharmacy: [facility] [Not filled] 9. C hronic kidney disease, stage 3a 10. L goldie term (current) use of oral hypoglycemic drugs 11. O ther fdc (current) drug therapy 12. L goldie term (current) use of insulin Scheduled Date/Time NOV 27, 2023 at 10:30 Appointment Type IM FTR Location [id number] Reason for visit F2F SURGERY CLEARANCE FOR RIGHT EYE CATARACT REMOVAL [phone] Scheduled Date/Time DEC 19, 2023 at 10:00 Appointment Type IM FTR Location [id number] Reason for visit F2F ANNUAL APPT + DIABETIC FOOT EXAM + HYPERCALCEMIA [phone] Scheduled Date/Time FEB 15, 2024 at 10:00 Appointment Type PHARM FTR Location [id number] Reason for visit F2F 3 MONTH DM F/U [phone] Extracted from:Title: COURT REPORTER WWE/pap Author: SHAYLA HEAD NP Date: 09/21/23 1. E ncounter for gynecological examination (general) (routine) with abnormal findings Over 50% of m inute visit spent face to face with patient on education, reviewing history, and developing plan of care. Continue monthly BSE and yearly well woman exams. Return to clinic in 1 year. Exercise: 30 minutes of moderate exercise 5 days a week including cardio and strength training is recommended for a healthy lifestyle. T his should be in addition to your normal daily work/routine. If you are trying to lose weight more exercise along with a healthy diet is recommended. Supplements/Vitamins: If you are not following, or able to follow a well-balanced diet indicated below due to personal or medical reasons, it is recommended you take a m ultivitamin. This is especially important if you are trying to get as w omen need additional folic acid before and during (400-1000 micrograms per day). Daily calcium intake should be around 1200 mg per day w hich is 120% of the recommended daily allowance if looking at food labels.? W e recommend V itamin D3 2,000-3,000 international units a day i f you have not already been identified with an insufficiency or deficiency. Nutrition: A healthy diet with protein, vegetables, fruits, grains, and dairy is advised. More information including example serving sizes can be found at h ttps://www.choosemyplate.gov/.&# 160; T hese amounts are appropriate for individuals who get less than 30 minutes per day of moderate physical activity, beyond normal daily activities. Those who are more physically active may be able to consume more while staying within calorie needs. ; discussed menopause no menses x1yr s o pt is [employer]PER[employer]; to notify clinic if any vag bleeding; increased risk for hyperplasia as diabetic prefer vit D >50; enc 2000U/d OTC Ordered: Occult Blood IA LC MB [id number] 2. E ncounter for screening for malignant neoplasm of cervix co test 5yrs if nl Ordered: AP Cytology COURT REPORTER HPV High Risk (16/18/Other) 3. O besity, unspecified increase exercise, decrease calories to decrease wt/BMI; advised healthy lifestyle, namely whole food plant based diet w/ regular exercise. Advise nutrition irene/diary to track energy intake vs expenditure f/u prn PVUA. 4. B DC 32.0-32.9 Shayla Vo [facility] Extracted from:Title: [id number] VIRTUAL 2 MONTH DM F/U Author: ESTUARDO REDDING, PharmD Date: 08/02/23 1. E ncounter for therapeutic drug level monitoring Contacted patient. Verified full name and . Virtual appt completed via telephone. Last saw patient in clinic on 06/08/2023. S tarted metformin XR 500 mg daily x 1 week, then increased to two tabs (1,000 mg total) daily. Decreased glipizide from 5 mg twice daily with breakfast/dinner to 5 mg daily with breakfast x 1-2 weeks, then stopped. C ontinue Lantus 58 units at bedtime, Jardiance 25 mg daily with breakfast, and Trulicity 4.5 mg weekly. Of note, she did have to increase Lantus up to 68 units. Was suppose to f/u in 1 month, but appt got pushed back due to patient being ill. A1c above goal of less than 7% at 7.7%. Previous A1c in May 2023 was 7.9%, J un 2022 was 7 .5%, D ec 2021 was 7.8%, and A pr 2021 was 7.9%. Monitoring fasting BG in the morning and prior to Lantus in the evening. D iscussed log. On current regimen, AM running 85-120, did have one at 74. P M running 150-190, but sometimes spiking up to 240. D enies any sugars below 70. Average BG for A1c of 7.7% = 174. SCr elevated at 1.6 at this time. Was 1.7 in May 2023. R unning 1.4 up to 1.7 over the past few years. Spiked at 2.1 in Sep 2018. No extensive presence of proteinuria in May 2023. Stage 3 CKD. Was f/b corporate risk analyst Dr. Jose Correia in [place], [place] but didn't care for him. A new referral was placed for Dr Leonard in [place], but she hasn't seen him yet. Educated to keep well hydrated with water, keep DM/HTN controlled, and avoid nephrotoxic agents such as NSAIDs. Educated about complications from uncontrolled DM/HTN/HLD. Educated about hypoglycemia. Educated about BG goals and when to monitor - fasting and post prandial. For safety/efficacy, at a minimum should monitor fasting BG every morning and prior to Lantus. For accurate readings, ensure post prandial sugars are at least 2 hours after eating/drinking anything besides water. Previously discussed Freestyle Jesse 3 C GM - she does not meet coverage criteria, so she would have to pay out of pocket - she declines at this time. Discussed diet/lifestyle modifications. Has had a nnual diabetic eye exam. H as had a nnual diabetic foot exam with PCM team. Denies any open sores/cuts/wounds/ulcers, nail fungus, or sx of neuropathy at this time. Declines colonoscopy. Referred to [facility] for overdue p ap. Referred to community for flu vaccine. U p to date on all other preventative health screenings. States compliant with medications. Denies sx of hyperglycemia/hypoglycemia or UTI/yeast infection at this time. Has been fighting off a cold. E ducated infections can increase BG. YANI is negative - no Type 1 DM or Latent Autoimmune diabetes. C-peptide level is high - shows insulin resistance. Tolerating medications. Discussed therapy options. T rying to avoid meal time insulin if possible. CrCl is 5 3 mL/min. No renal dose adjustments indicated at this time. F or CrCl 4 5-60 mL/min, guidelines state for metformin: no adjustment or 1,500 mg/day. ? Increase m etformin XR from 5 00 mg two t abs (1,000 mg total) daily to three tabs (1,500 mg total) daily. Currently taking Lantus 68 units at bedtime. Increase L antus dose by 2 units every 3-5 days to reach fasting < 130, post prandial < 180, and none < 70. Max dose 80 units/day. Contact PharmD if requiring higher dose. Can then try switching dose to AM or would need to split dose into AM and PM. Continue Jardiance 25 mg daily with breakfast and Trulicity 4.5 mg weekly. Follow-up in 3 months or sooner with any sugars below 70 or consistently above 150. Advised to contact with any questions or concerns. Pt v/u. Total time on phone w ith patient - 25min Estuardo Redding, NataleeD Clinical Pharmacist [address] [place] [address] Nolberto [place] Ordered: Hemoglobin A1c Renal Function Panel 2. 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 C hronic kidney disease, stage 3a 4. L goldie term (current) use of oral hypoglycemic drugs 5. O ther intermediate project manager (current) drug therapy 6. L goldie term (current) use of insulin Scheduled Date/Time NOV 14, 2023 at 10:00 Appointment Type PHARM FTR Location [id number] Reason for visit F2F 3 MONTH DM F/U [phone] Extracted from:Title: [id number] F2F 3 MONTH DM F/U Author: ESTUARDO REDDING, PharmD Date: 06/08/23 1. E ncounter for therapeutic drug level monitoring A1c above goal of less than 7% at 7.9%. Previous A1c in Jan 2023 was 7 .5%, D ec 2021 was 7.8%, and A pr 2021 was 7.9%. Monitoring fasting BG in the morning and prior to Lantus in the evening. No log/meter brought in today - instructed to bring to all appts. States AM running h igh 90s to 120s and PM running m id 140s to 180s. D enies any sugars below 70. F asting BG on most recent lab elevated at 178. Average BG for A1c of 7.9% = 180. SCr elevated at 1.7 at this time. Running 1.4 up to 1.7 over the past few years. Spiked at 2.1 in Sep 2018. No extensive presence of proteinuria at this time. Stage 3 CKD. Was f/b corporate risk analyst Dr. Jose Correia in [place], [place] but didn't care for him. A new referral was placed for Dr Leonard in [place], but she never saw him. Educated to keep well hydrated with water, keep DM/HTN controlled, and avoid nephrotoxic agents such as NSAIDs. Educated about complications from uncontrolled DM/HTN/HLD. Educated about hypoglycemia - especially with insulin and sulfonylurea. Educated about BG goals and when to monitor - fasting and post prandial. For safety/efficacy, at a minimum should monitor fasting BG every morning and prior to Lantus. For accurate readings, ensure post prandial sugars are at least 2 hours after eating/drinking anything besides water. Discussed Freestyle Jesse 3 C GM - she does not meet coverage criteria, so she would have to pay out of pocket - she declines at this time. Discussed diet/lifestyle modifications. Has had a nnual diabetic eye exam. H as had a nnual diabetic foot exam with PCM team. Denies any open sores/cuts/wounds/ulcers, nail fungus, or sx of neuropathy at this time. Declines colonoscopy. Referred to [facility] for overdue p ap. Referred to community for flu vaccine. U p to date on all other preventative health screenings. States compliant with medications, but missing 2nd d ose of glipizide at dinner sometimes. Denies sx of hyperglycemia/hypoglycemia or UTI/yeast infection at this time. Tolerating medications. Discussed therapy options. P reviously was on metformin (denies GI issues), but it was stopped due to previous kidney dysfunction. T rying to avoid meal time insulin if possible. Educated about meds/side effects/administration. CrCl is 5 0 mL/min (38 mL/min modified for overweight). No renal dose adjustments indicated at this time. Plan is to get her off of glipizide. For CrCl 30-45 mL/min, max metformin dose is 1,000 mg/day. Start metformin XR 500 mg daily with breakfast x 1 week, then increase to two tabs (1,000 mg total) daily. Decrease glipizide from 5 mg twice daily with breakfast/dinner to 5 mg daily with breakfast x 1-2 weeks, then stop. Monitor sugars very closely. Currently taking Lantus 58 units at bedtime. Increase L antus dose by 2 units every 3-5 days to reach fasting < 130, post prandial < 180, and none < 70. Max dose 80 units/day. Contact PharmD if requiring higher dose. Would then split dose into two (AM/PM). Continue Jardiance 25 mg daily with breakfast and Trulicity 4.5 mg weekly. Will draw YANI and c-peptide levels. Follow-up in 1 month and 3 months or sooner with any sugars below 70 or consistently above 150. Discussed all other lab results. RBC/HGB/HCT slightly elevated - states she does snore - instructed to discuss with PCM about possible sleep study. Briefly discussed issues with uncontrolled ODESSA. Corrected calcium elevated at 10.5 in Jan 2023. Stopped MVI for 50+. Corrected calcium down to 10.1 at this time. Continue holding. B12 level slightly high - denies taking supplement. Advised to contact with any questions or concerns. Pt v/u. Total time with patient - 55-60 min Estuardo Redding, PharmD Clinical Pharmacist [address] [place] [address] Group [place]olberto [place] Ordered: C-Peptide [id number] AutoAb [id number] Hemoglobin A1c Hemoglobin A1c Renal Function Panel 2. 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 Ordered: empagliflozin(Jardiance 25 mg oral tablet), 1 tab(s), Oral, every morning, # 90 tab(s), 1 total refill(s), Maintenance, 1 tab(s) Oral every morning, Pharmacy: [facility] [Not filled] insulin glargine(Lantus Solostar Pen 100 units/mL subcutaneous solution), 58 unit(s), SubCutaneous, every day at bedtime, # 45 mL, 1 total refill(s), Maintenance, 5 pens = 15 mL, 58 unit(s) SubCutaneous every day at bedtime, Pharmacy: [facility] [Not filled] metFORMIN(MetFORMIN (Eqv-Glucophage XR) 500 mg oral tablet, extended release), 2 tab(s), Oral, Daily, with breakfast, # 180 tab(s), 1 total refill(s), Maintenance, 2 tab(s) Oral Daily,Instr:with breakfast, Pharmacy: [facility] [Federal Rx: #180 last filled 06/08/23] needle pen 32g 4mm(needle pen 32g 4mm), See Instructions, Use as new pen needle with Lantus Solostar pen every night at bedtime, # 100 EA, 1 total refill(s), Maintenance, Supply, [facility] [Not filled] 3. H ypertensive chronic kidney disease with stage 1 through stage 4 chronic kidney disease, or unspecified chronic kidney disease BP at goal at 1 69 in clinic today. Educated about BP goal of less than 130/80. Not monitoring at home. Denies CP/SOB/BHATT/LYONS/BV/dizziness/palpi tations/dry cough a t this time. On appropriate DANIEL-I with DM and CKD. Discussed diuretic. States she never had issues with edema in the past. Discussed once we get DM c ontrolled, may try to hold HCTZ to see if this helps with CKD. Could increase lisinopril if needed for BP control. Continue lisinopril 10 mg daily and HCTZ 12.5 mg daily. Instructed to monitor a couple of times per week, more often if running too low/too high. Educated how to properly monitor. Keep a log. Contact PharmD if BP is consistently above goal or running too low (<100/50s). Ordered: hydroCHLOROthiazide(hydroCHLOROt hiazide 12.5 mg oral tablet), 1 tab(s), Oral, Daily, # 90 tab(s), 1 total refill(s), Maintenance, 1 tab(s) Oral Daily, Pharmacy: [facility] [Not filled] lisinopril(lisinopril 10 mg oral tablet), 1 tab(s), Oral, Daily, # 90 tab(s), 1 total refill(s), Maintenance, 1 tab(s) Oral Daily, Pharmacy: [facility] [Not filled] 4. H yperlipidemia, unspecified Repeat fasting lipid panel shows triglycerides elevated at 1 98 and HDL below 40. All other values WNL. (LDL below 100) Estimated 10-year ASCVD risk is 4.7%. On appropriate high intensity statin. Tolerating medication. Denies myalgias. Continue Crestor 40 mg daily. Holding aspirin for primary cardiac prevention due to increased risk of bleeding due to CKD. Ordered: rosuvastatin(Crestor 40 mg oral tablet), 1 tab(s), Oral, Daily, # 90 tab(s), 1 total refill(s), Maintenance, 1 tab(s) Oral Daily, Pharmacy: [facility] [Not filled] 5. A llergic rhinitis, unspecified Sx controlled on therapy. Medication renewal. Ordered: cetirizine(cetirizine 10 mg oral tablet), 1 tab(s), Oral, Daily, # 90 tab(s), 3 total refill(s), Maintenance, 1 tab(s) Oral Daily, Pharmacy: [facility] [Not filled] montelukast(Singulair 10 mg oral tablet), 1 tab(s), Oral, every day at bedtime, # 90 tab(s), 1 total refill(s), Maintenance, 1 tab(s) Oral every day at bedtime, Pharmacy: [facility] [Not filled] 6. G brody-esophageal reflux disease without esophagitis Sx controlled on therapy. Medication renewal. Ordered: omeprazole(omeprazole 20 mg oral delayed release capsule), 1 cap(s), Oral, Daily, 30 to 60 minutes before a meal, # 90 cap(s), 1 total refill(s), Maintenance, 1 cap(s) Oral Daily,Instr:30 to 60 minutes before a meal, Pharmacy: [facility] [Not filled] 7. C hronic kidney disease, stage 3a 8. L goldie term (current) use of oral hypoglycemic drugs 9. O ther fdc (current) drug therapy 10. L goldie term (current) use of insulin Scheduled Date/Time JUL 20, 2023 at 10:00 Appointment Type PHARM FTR Location [id number] Reason for visit F2F 1 MONTH DM F/U [phone] Scheduled Date/Time SEP 14, 2023 at 10:00 Appointment Type PHARM FTR Location [id number] Reason for visit F2F 3 MONTH DM F/U [phone] Extracted from:Title: [id number] F2F OVERDUE DM F/U Author: ESTUARDO REDDING, PharmD Date: 02/22/23 1. E ncounter for therapeutic drug level monitoring A1c above goal of less than 7% at 7.5%. Previous A1c in Jul 2022 was 7.8% and A 2021 was 7.9%. Non-compliant with follow-up. Monitoring fasting BG in the morning and sometimes prior to Lantus in the evening. No log/meter brought in today - instructed to bring to all appts. States AM running 9 0-115 and PM running h igh 180s D enies any sugars below 70. Average BG for A1c of 7.5% = 169. SCr elevated at 1.5 at this time. Was 1.4 in Jul 2022. Prior to that r unning 1.6-1.7 the past few years. Spiked at 2.1 in Sep 2018. Presence of proteinuria. Stage 3 CKD. Was f/b corporate risk analyst Dr. Jose Correia in [place], [place] but didn't care for him. A new referral was placed for Dr Leonard in [place], but she never saw him. Educated to keep well hydrated with water, keep DM/HTN controlled, and avoid nephrotoxic agents such as NSAIDs. Educated about complications from uncontrolled DM/HTN/HLD. Educated about hypoglycemia - especially with insulin and sulfonylurea. Educated about BG goals and when to monitor - fasting and post prandial. For safety/efficacy, at a minimum should monitor fasting BG every morning and prior to Lantus. For accurate readings, ensure post prandial sugars are at least 2 hours after eating/drinking anything besides water. Discussed Freestyle Jesse 3 C GM - she does not meet coverage criteria, so she would have to pay out of pocket - she declines at this time. Discussed diet/lifestyle modifications. D ue to 's work schedule, they eat dinner late between [id number]. Admits to eating more starchy vegetables, carbs, and chocolate. Has had a nnual diabetic eye exam. H as had a nnual diabetic foot exam with PCM team. Denies any open sores/cuts/wounds/ulcers, nail fungus, or sx of neuropathy at this time. Declines colonoscopy. Overdue for mammogram and bone density screening - ordered again. Referred to [facility] for overdue p ap. Up to date on all other preventative health screenings. States compliant with medications. Denies sx of hyperglycemia/hypoglycemia or UTI/yeast infection at this time. Tolerating medications. Discussed therapy options. Did not tolerate metformin - plus was held due to kidney function at that time. CrCl is 5 7 mL/min. T rying to avoid meal time insulin if possible. Currently taking Lantus 58 units at bedtime. Can increase/decrease Lantus dose by 2 units every 3-5 days to reach BG goals. Max dose 80 units/day. Contact PharmD if requiring higher dose. Would then split dose into two (AM/PM). Continue Jardiance 25 mg daily with breakfast, glipizide 5 mg twice daily with breakfast/dinner, and Trulicity 4.5 mg weekly. Follow-up in 3 months or sooner with any sugars below 70 or consistently above 150. Advised to contact with any questions or concerns. Pt v/u. Total time with patient - 60 min Estuardo Redding, PharmD Clinical Pharmacist [address] [place] [address] Nolberto [place] Office Ordered: CBC w/ Diff Comprehensive Metabolic Panel Hemoglobin A1c Lipid Panel Microalbumin Panel, Urine Thyroid Stimulating Hormone Vitamin B12 [id number] Vitamin D [address] Bone Density Axial Skeleton 2. 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 H ypertensive chronic kidney disease with stage 1 through stage 4 chronic kidney disease, or unspecified chronic kidney disease BP at goal at 117/66 Educated about BP goal of less than 130/80. Not monitoring at home. Denies CP/SOB/BHATT/LYONS/BV/dizziness/palpi tations/dry cough a t this time. On appropriate DANIEL-I with DM and CKD. Continue lisinopril 10 mg daily and HCTZ 12.5 mg daily. Instructed to monitor a couple of times per week, more often if running too low/too high. Educated how to properly monitor. Keep a log. Can bring in BP meter for clinic comparison as well. Contact PharmD if BP is consistently above goal or running too low (<100/50s). 4. H yperlipidemia, unspecified Repeat fasting lipid panel in Jul 2022 s howed triglycerides elevated at 231 and HDL below 40. All other values WNL. (LDL below 100) Estimated 10-year ASCVD risk is 5.7%. On appropriate high intensity statin. Tolerating medication. Denies myalgias. Continue Crestor 40 mg daily. Holding aspirin for primary cardiac prevention due to increased risk of bleeding due to CKD. 5. H ypercalcemia Calcium level is currently elevated at 1 0.5. Level was 10.2 in Jul 2022. She does consume dairy products - milk and cheese - both frequently. She is taking a MVI 50+ daily plus an eye vitamin daily that was recently started by ophthalmology. Instructed to look at amount of calcium in each. Would probably be okay with just taking the eye vitamin. Also discussed could look at a multivitamin that isn't for 50+, it may have less calcium. She will look and contact me if needed. 6. E ncounter for screening mammogram for malignant neoplasm of breast Overdue. Reordered. Ordered: MG Mammo Cory Screening Bilateral 7. C hronic kidney disease, stage 3a 8. L goldie term (current) use of oral hypoglycemic drugs 9. O ther fdc (current) drug therapy 10. L goldie term (current) use of insulin Scheduled Date/Time MAR 01, 2023 at 14:00 Appointment Type MG Mammo Cory Screening Location [id number] Reason for visit screening mammogram Scheduled Date/Time MAR 01, 2023 at 14:[address] Bone Density Location [id number] Reason for visit bone density screening Scheduled Date/Time MAY 30, 2023 at 10:00 Appointment Type PHARM FTR Location [id number] Reason for visit F2F 3 MONTH DM F/U [phone] 03/24/2025 0055[facility] Functional Status Combined list of recent functional and cognitive assessments recorded at [facility] [employer] [facility] [employer] [facility] Functional [place] Measurement (FIM) Scale: 1 = Total Assistance (Subject = 0% +), 2 = Maximal Assistance (Subject = 25% +), 3 = Moderate Assistance (Subject = 50% +), 4 = Minimal Assistance (Subject = 75% +), 5 = Supervision, 6 = Modified [place] (Device), 7 = Complete [place] (Timely, Safely). Assessment Date/Time Source Assessment Type Assessment Skill Assessment Score Assessment Details No data available for this section
== END 2025-03-24 10:39 | disposition home or self-care (01) ==
LOC: ANHIMG 10:40
PROVIDERS: PCP Nurse Practitioner Family; Visit Provider Plastic Surgery
DX: M79.642 Pain in left hand (principal)
CPT/HCPCS: 73130

== ENCOUNTER 2025-08-01 09:24 | Outpatient (CLI) | payer OTHER, SELFPAY ==
[2025-08-01 10:09] LABS: Hematocrit 45.4 % (37.0-47.0); Hemoglobin 14.3 g/dL (12.0-15.0); Mean Corpuscular HGB Conc 31.5 g/dl (32-36); Mean Corpuscular Hemoglobin 27.5 pg (26-34); Mean Corpuscular Volume 87.3 fl (80-100); Platelet Count Result 242 k/mm3 (150-375); Red Blood Count 5.20 M/mm3 (4.2-5.4); White Blood Count 6.5 K/mm3 (4.5-10.0)
[2025-08-01 10:46] LABS: Alanine Aminotransferase 27 U/L (6-35); Albumin Level 4.6 g/dL (3.5-5.1); Alkaline Phosphatase 83 U/L (38-126); Anion Gap 6 mmol/L (4-12); Aspartate Amino Transferase 34 U/L (14-36); Bilirubin,Total 0.4 mg/dL (0.2-1.3); Blood Urea Nitrogen 22 mg/dL (7-17); Calcium 10.3 mg/dL (8.4-10.2); Carbon Dioxide 26 mmol/L (22-30); Chloride 107 mmol/L (98-107); Cholesterol 139 mg/dL (0-200); Estimated Glomerular Filt Rate 46; Glucose 116 mg/dL (65-110); HDL Direct 51 mg/dL; Magnesium 2.1 mg/dL (1.6-2.3); Potassium 4.2 mmol/L (3.4-5.0); Sodium 139 mmol/L (137-145); Total Protein 7.7 g/dL (6.3-8.2); Triglycerides 139 mg/dL (<150)
[2025-08-01 10:59] LABS: MALB Creatinine Ratio 63.0 mg/g (0-30)
[2025-08-01 11:20] LABS: Thyroid Stimulating Hormone Reflex 1.890 uIU/mL (0.465-4.68)
[2025-08-01 12:59] LABS: Iron 69 ug/dL (37-170)
[2025-08-01 13:41] LABS: Ferritin 35.80 ng/mL (11.1-264)
[2025-08-01 13:43] LABS: Percent Iron Saturation 20 % (20-50)
[2025-08-01 14:44] LABS: Hemoglobin A1C 6.8 % (<5.7)
[2025-08-02 18:08] LABS: Cocaine (Metab.), Urine Negative ng/mL (Cutoff=300)
[2025-08-05 00:07] LABS: Free Testosterone (Direct) 2.7 pg/mL (0.0-4.2)
== END 2025-08-01 09:25 | disposition home or self-care (01) ==
LOC: ANHLAB 09:25
PROVIDERS: PCP Nurse Practitioner Family; Visit Provider Nurse Practitioner Family
DX: E78.5 Hyperlipidemia, unspecified (principal); Z79.899 Other long term (current) drug therapy; I10 Essential (primary) hypertension; E11.9 Type 2 diabetes mellitus without complications; Z79.4 Long term (current) use of insulin; J30.2 Other seasonal allergic rhinitis; K21.9 Gastro-esophageal reflux disease without esophagitis; N18.9 Chronic kidney disease, unspecified; Z78.0 Asymptomatic menopausal state; M16.12 Unilateral primary osteoarthritis, left hip; M79.7 Fibromyalgia; M65.351 Trigger finger, right little finger; M47.817 Spondylosis without myelopathy or radiculopathy, lumbosacral region; L68.0 Hirsutism
CPT/HCPCS: 36415; 80053; 80061; 80307; 82043; 82627; 82728; 83036; 83498; 83540; 83550; 83735; 84146; 84402; 84403; 84443; 85027